=== PATIENT | female | born 1985 | race Caucasian/White ===

== ENCOUNTER 2018-01-03 21:31 | Emergency (ER) | payer BC, SELFPAY ==
[2018-01-03 21:33] VITALS: BP 149/68; PULSE 101; RESP 16; TEMP 37.6; O2SAT 98; BMI 26.6
--- NOTE | 2018-01-03 22:58 | RAD_ITS ---
STUDY: X-RAY CHEST REASON FOR EXAM: Female, 32 years old. C/O CONGSTION,SOB, WHEEZING, FEVER TECHNIQUE: Frontal and lateral views of the chest. COMPARISON: None. FINDINGS: The lungs are clear and expanded. There is no demonstrated pleural abnormality. Normal size heart. Normal mediastinum and rafal. Normal visualized pulmonary arteries. Normal visualized aortic arch and descending thoracic aorta. Normal visualized thoracic spine. Normal visualized ribs, clavicles, and shoulders. There is no demonstrated abnormality of the visualized soft tissue structures of the upper abdomen. RAD/Chest PA and Lateral IMPRESSION: Normal x-ray examination of the chest. Electronically Signed: Eliseo Marti MD at 23:28 EST Tel , Service support ,
--- NOTE | 2018-01-03 23:02 | ED.DCSUM_ITS ---
- ER Visit Summary Date of Service: 01/03/18 Chief Complaint: Cough and intermittent wheezing History of Present Illness: The patient is a 32 F no significant past medical history. For the past 2 months she has had intermittent cough, fever and wheezing. Her one daughter at home was admitted [facility] with pneumonia. It was found out through blood work that the mom the patient had mycoplasma initially was treated with Zithromax and then had a recent course of doxycycline for 10 days. She is said since this whole episode was begun over the last 2 months she has intermittent wheezing and feels like her lungs are tight. She denies any hemoptysis. Currently has a nonproductive cough. Physical Examination: Well-appearing young female. Vital signs are stable afebrile. Pulse ox 90% room air no signs of hypoxia. No distress. HEENT exam unremarkable. Moist mucous members. Neck nontender no lymphadenopathy. Lungs dry cough but no rales, rhonchi or wheezing currently. Auscultation bilaterally. Heart regular rate and rhythm no murmur. Abdomen soft nontender. Extremities moves all 4. Calves nontender no edema. Neurological exam awake alert without focal deficits. Test Results: Chest x-ray shows Emergency Department Course and Treatment: [] Treatment Plan: [] Disposition: Discharge Impression: Viral URI with bronchospasm This note was generated with [employer] dictation software. It may contain incorrect words, spelling, and punctuation that were not noted in review of the chart prior to signing ED Disposition - Plan for ED Patient: Chief Complaint: Cough Referrals: Sin Sanchez DO [Primary Care Provider] -
[2018-01-03] MEDS: Ipratropium/Albuterol Sulfate 3 ML AMPUL.NEB INHALATION (23:12)
[2018-01-03 23:16] VITALS: PULSE 100; RESP 20
--- NOTE | 2018-01-03 23:25 | ED.DEP ---
ED Disposition - Plan for ED Patient: Disposition: Home or Assisted Living Chief Complaint: Cough Instructions: ED Wheezing Prescriptions: Albuterol Sulfate [Proventil Hfa] 6.7 gm IH Q2H PRN PRN #1 [id number] PRN Reason: Wheezing Prednisone [Deltasone] 40 mg PO DAILY 10 Days tab Referrals: Damon Munoz MD [STAFF PHYSICIAN] - 1 Week if not improving Additional Instructions: Prednisone daily for wheezing and lung inflammation. Proventil or albuterol inhaler 2 puffs every 2-4 hours as needed for wheezing or feeling of chest tightness. Call follow-up with primary care physician if not improving.
[2018-01-03 23:43] VITALS: BP 113/72; RESP 93; TEMP -8.8; TEMP 16; O2SAT 97
== END 2018-01-03 23:44 | disposition home or self-care (01) ==
PROVIDERS: Emergency Provider Emergency Medicine; Family Provider Family Medicine; PCP Family Medicine
DX: J06.9 Acute upper respiratory infection, unspecified (principal); J98.01 Acute bronchospasm
CPT/HCPCS: 71046; 94640; 99282

== ENCOUNTER 2020-07-22 22:05 | Emergency (ER) | payer MEDICAID, SELFPAY ==
[2020-07-22 22:05] VITALS: BP 114/84; PULSE 76; RESP 15; TEMP 37; O2SAT 97; BMI 22.7
--- NOTE | 2020-07-22 22:30 | ED.VISSUMM ---
- ER Visit Summary Date of Service: 07/22/20 Chief Complaint: Wound check [] History of Present Illness: The patient is a 34 F [presents to the emergency department with complaint of increased pain in the right foot as well as swelling. Patient states that she had surgery on both feet 8 days ago in [facility] with a Dr. Wise.] Patient states that she was healing well until today when she started having increasing swelling and pain. She denies any fever, chills, or sweats. She had an appointment with the refined syrup operator earlier in the week and everything looked well. Patient denies any new trauma or injury to the foot. Patient has no medical history otherwise. Physical Examination: [HEENT-PERRLA, EOMI. Cranial nerves II through XII grossly intact. TMs clear. Mucous membranes moist. No adenopathy. Cardiovascular-regular rate and rhythm without murmur or ectopy Lungs-clear to auscultation, chest wall stable without crepitus or subcu emphysema Abdomen-normoactive bowel sounds, soft, nontender, no rebound or rigidity, no peritoneal signs. Extremities-intact ?4, normal range of motion, normal pulses. Right foot-patient has small amount of bloody drainage noted from the medial aspect of the MTP joint incision. There is some subtle faint erythema over the MTP joint and medial aspect of the foot. No drainage noted from the other incisions. She is neurovascular intact. She has no pain at the calf. No ropes or cords palpated. Negative Homans sign.] Test Results: [None indicated] Emergency Department Course and Treatment: [I spoke with patient's refined syrup operator who performed the surgery and he recommended an antibiotic and he will see her in the office in 2 days.] Treatment Plan: [Follow-up with refined syrup operator in 2 days. I will start patient on Keflex.] Disposition: [Discharged home in stable condition] Impression: [Postop pain Postop wound infection] This note was generated with [employer] software. It may contain incorrect words, spelling, and punctuation that were not noted in review of the chart prior to signing
--- NOTE | 2020-07-22 22:38 | ED.DEP ---
ED Disposition - Plan for ED Patient: Instructions: ED Wound Check Post Op Pain, ED Wound Check Post Op Bleeding, ED Wound Infection after surgery Prescriptions: Cephalexin [Keflex] 500 mg PO Q6 #40 cap Prescription Printed Additional Instructions: see your surgeon in 2 days
[2020-07-22] MEDS: Cephalexin 250 MG Capsule 500 MG PO (23:01)
== END 2020-07-22 23:09 | disposition home or self-care (01) ==
LOC: ED 22:55
PROVIDERS: Emergency Provider Emergency Medicine
DX: T81.41XA Infection following a procedure, superficial incisional surgical site, initial encounter (principal); G89.18 Other acute postprocedural pain
CPT/HCPCS: 99281; 99283

== ENCOUNTER → 2021-03-15 | Outpatient (CLI) | payer MEDICAID, SELFPAY ==
[2021-03-15 14:17] VITALS: BMI 22.7
[2021-03-20 15:57] LABS: HPV APTIMA, High Risk Positive (Negative)
== END | disposition home or self-care (01) ==
LOC: LABSPEC 16:24
PROVIDERS: Referring Provider Obstetrics & Gynecology; Visit Provider Obstetrics & Gynecology
DX: Z12.4 Encounter for screening for malignant neoplasm of cervix (principal)
CPT/HCPCS: 87624; 88175; G0145

== ENCOUNTER → 2022-06-11 | Outpatient (CLI) | payer MEDICAID, SELFPAY ==
[2022-06-17 21:07] LABS: HPV Genotype 16, Aptima Negative (Negative)
[2022-06-18 13:53] LABS: HPV APTIMA, High Risk Positive (Negative); HPV Genotype 18,45 Aptima Negative (Negative)
== END | disposition home or self-care (01) ==
LOC: LABSPEC 12:12
PROVIDERS: Referring Provider Obstetrics & Gynecology; Visit Provider Obstetrics & Gynecology
DX: Z12.4 Encounter for screening for malignant neoplasm of cervix (principal)
CPT/HCPCS: 87624; 88175; G0145

== ENCOUNTER 2022-11-26 12:44 | Emergency (ER) | payer MEDICAID, SELFPAY ==
[2022-11-26 12:46] VITALS: BP 112/75; PULSE 73; RESP 16; TEMP 36.6; O2SAT 98; BMI 26.8
--- NOTE | 2022-11-26 13:18 | RAD_ITS ---
INDICATION: Radiating low back pain EXAMINATION/TECHNIQUE: X-RAY - XR Spine Lumbar Min 4 Views COMPARISON: None. FINDINGS: VERTEBRAE: Preserved vertebral body height. No fracture. Bilateral pars defect without spondylolisthesis at L5/S1. . Preservation of the normal lumbar lordosis. No significant facet arthropathy. DISCS: Mild disc space narrowing at L4-5 and L5-S1 INCLUDED ABDOMEN: Included bowel gas pattern is non-obstructive. RAD/L/S Spine Min 4 Views IMPRESSION: Mild degenerative changes in the lower lumbar spine with bilateral pars defect without spondylolisthesis at L5/S1. No acute fracture or suspicious osseous lesion Electronically Signed: Bereket Malloy MD at 14:30 EST ,
--- NOTE | 2022-11-26 13:22 | EDS_ITS ---
HPI <MICHAEL Carrillo - Last Filed: 11/26/22 16:10> History of Present Illness Chief Complaint: Abd Pain Narrative Narrative: Patient presents today with lower back pain that radiates into her stomach, upper legs, and groin bilaterally for the past 2 days. She states she has been having chronic mild lower back pain for the past 2 months but attributed it to standing a lot throughout the day. She states she went to the emergency department in [place] yesterday for this issue where they completed blood work and a transvaginal ultrasound and both came back unremarkable. She states she can walk but that it causes her a lot of pain, she has pain with bending her legs, and she has limited range of motion in her back due to the pain. Patient denies injury, hx kidney stones, dysuria, hematuria, urinary frequency, nausea, vomiting, diarrhea, saddle paresthesia, and bowel/bladder incontinence. [facility] <MICHAEL Carrillo - Last Filed: 11/26/22 16:10> [facility] Medical History LGSIL (low grade squamous intraepithelial dysplasia) Home Medications levonorgestrel-ethinyl estradiol 0.1 mg-20 mcg tablet (Aviane) 1 tab PO QDAY #84 tabs 06/11/22 [Rx Last Taken Unknown] hydroxyzine pamoate 25 mg capsule (Vistaril) 25 mg PO BID PRN anxiety #20 caps 10/10/22 [Rx Last Taken Unknown] cyclobenzaprine 10 mg tablet 10 mg PO BID PRN muscle spasm #10 tabs 11/26/22 [Rx Last Taken Unknown] naproxen 500 mg tablet (Naprosyn) 500 mg PO BID PRN pain #20 tabs 11/26/22 [Rx Last Taken Unknown] Allergy/AdvReac Type Severity Reaction Status Date / Time No Known Allergies Allergy Verified 11/26/22 12:45 Surgical History H/O foot surgery H/O: History of tonsillectomy Social History Smoking Status: Never smoker alcohol intake: never substance use type: does not use what type of physical activity do you participate in: yoga and weight training frequency: 1-2 times per week duration: > 90 minutes/day seatbelt use: always do you feel safe at home: Yes additional social history: Single ROS <MICHAEL Carrillo - Last Filed: 11/26/22 16:10> ROS ED Constitutional Constitutional ED: Denies chills, fever(s) or sweats Eyes Eyes: Denies blurry vision, change in vision or diplopia ENT ENT ED: Denies rhinorrhea or sore throat Cardiovascular Cardiovascular: Denies chest pain, palpitations or racing heartbeat Respiratory/Chest Respiratory/Chest: Denies cough, dyspnea or dyspnea on exertion Gastrointestinal Gastrointestinal: Reports abdominal pain; Denies diarrhea, nausea or vomiting Genitourinary Genitourinary ED: Denies dysuria, hematuria or urinary frequency Musculoskeletal Musculoskeletal: Reports back pain; Denies myalgias or neck pain Integumentary Denies abscess, Abrasions or rash Neurologic Neurologic: Denies headache(s), paresthesias or weakness Psychiatric Psychiatric: Denies anxiety, depression or suicidal ideation EXAM <MICHAEL Carrillo - Last Filed: 11/26/22 16:10> Physical Exam Const Vital Signs: 11/26/22 12:46 Temperature 97.8 F Temperature Source Temporal Pulse Rate 73 Respiratory Rate 16 Blood Pressure 112/75 Blood Pressure Mean 87 Pulse Ox 98 Oxygen Delivery Method Room Air Positive well nourished and well developed General Appearance ED: well developed and NAD HEENT Reports moist mucous membranes Negative for trauma Eyes PERRL and EOMs intact bilaterally Neck no lymphadenopathy and supple Chest Wall inspection of chest normal Resp normal respiratory effort and clear to auscultation bilaterally Cardio regular rate, regular rhythm and no murmurs GI non-tender, non-distended and no masses Palpation: soft Back/Spine no CVA tenderness Back/Spine Narrative: Paraspinal muscle tenderness to the lumbar spine. Negative straight leg test bilaterally. Cervical Spine: Negative for cervical spine tenderness Thoracic Spine / Upper Back: Negative for thoracic spinal tenderness Lumbar Spine / Lower Back: Negative for lumbar spinal tenderness Extremity normal to inspection Extremity Narrative: DP and radial pulses 2+ bilaterally. Good capillary refill in all extremities. Sensation intact in all extremities. Neuro oriented x3, CN's II-XII intact bilaterally and no sensory deficits noted Sensorium / Orientation: alert Motor Exam: strength 5/5 throughout Psych mental status grossly normal Skin no rashes or lesions noted, no wounds and skin turgor normal <Juan Stack MD - Last Filed: 11/26/22 16:02> Physical Exam Const Vital Signs: 11/26/22 12:46 Temperature 97.8 F Temperature Source Temporal Pulse Rate 73 Respiratory Rate 16 Blood Pressure 112/75 Blood Pressure Mean 87 Pulse Ox 98 Oxygen Delivery Method Room Air MDM <MICHAEL Carrillo - Last Filed: 11/26/22 16:10> [facility] Narrative Medical decision making narrative: Lumbar spine x-ray shows mild degenerative changes with bilateral parous defect. No acute fracture or suspicious lesion. I am not concerned for cauda equina. I am not concerned for any abdominal process or nephrolithiasis. Urine has been sent for culture. Patient was given pain control and Flexeril here in the ED. She has been given a prescription for naproxen and Flexeril. I am comfortable with patient discharging home in stable condition and following up with her PCP. Patient is comfortable with plan. I have personally performed a face to face assessment of the patient and have reviewed the SAE Note. I performed a substantive portion of the visit including all aspects of the following. My nugent findings include: History is low back pain, rating outward, occasionally down legs. No fever or chills. No loss of bowel or bladder. Seen in [place] ED yesterday. Exam is afebrile. Vital signs noted. Regular rate and rhythm. Lungs clear to auscultation bilaterally. Diffuse lumbar tenderness, no step-off. Neurovascular intact bilateral lower extremities. DTRs equal and symmetric. Medical Decision Making: No red flag signs for cauda equina. Check UA. Check x-rays. X-rays interpreted by myself show no acute fracture, mild degenerative changes. Analgesia. Follow-up primary care. Discharge. Other additions or changes: [None] Lab Data Attestation: I reviewed the patient's lab results. Lab results narrative: Contaminated urine specimen. This has been sent for culture. Labs: Laboratory Results - last 24 hr 11/26/22 13:34 Urine Color Yellow Urine Clarity Sl. Cloudy Urine pH 6.5 Ur Specific [place] 1.015 Urine Protein 15 H Urine Glucose (UA) Normal Urine Ketones 5 H Urine Occult Blood Negative Urine Nitrite Negative Urine Bilirubin Negative Urine Urobilinogen Normal Ur Leukocyte Esterase 500 H Urine RBC 0 SEEN Urine WBC 25-50 SEEN Ur Squamous Epith Cells 5-10 SEEN Urine Bacteria 1+ Urine Mucus 1+ Radiography Diagnostic Testing: Clinical Impression(s) from Imaging Studies Lumbar Spine X-Ray 11/26/22 13:18 IMPRESSION: Mild degenerative changes in the lower lumbar spine with bilateral pars defect without spondylolisthesis at L5/S1. No acute fracture or suspicious osseous lesion Electronically Signed: Bereket Malloy MD at 14:30 EST Reading Location ID and State: [facility] / [place] , Service support , X-ray has been reviewed and interpreted by attending ED physician. <Juan Stack MD - Last Filed: 11/26/22 16:02> [facility] MDM Narrative Medical decision making narrative: I have personally performed a face to face assessment of the patient and have reviewed the SAE Note. I performed a substantive portion of the visit including all aspects of the following. My nugent findings include: History is low back pain, rating outward, occasionally down legs. No fever or chills. No loss of bowel or bladder. Seen in [place] ED yesterday. Exam is afebrile. Vital signs noted. Regular rate and rhythm. Lungs clear to auscultation bilaterally. Diffuse lumbar tenderness, no step-off. Neurovascular intact bilateral lower extremities. DTRs equal and symmetric. Medical Decision Making: No red flag signs for cauda equina. Check UA. Check x-rays. X-rays interpreted by myself show no acute fracture, mild degenerative changes. Analgesia. Follow-up primary care. Discharge. Other additions or changes: [None] Lab Data Labs: Laboratory Results - last 24 hr 11/26/22 13:34 Urine Color Yellow Urine Clarity Sl. Cloudy Urine pH 6.5 Ur Specific [place] 1.015 Urine Protein 15 H Urine Glucose (UA) Normal Urine Ketones 5 H Urine Occult Blood Negative Urine Nitrite Negative Urine Bilirubin Negative Urine Urobilinogen Normal Ur Leukocyte Esterase 500 H Urine RBC 0 SEEN Urine WBC 25-50 SEEN Ur Squamous Epith Cells 5-10 SEEN Urine Bacteria 1+ Urine Mucus 1+ Radiography Diagnostic Testing: Clinical Impression(s) from Imaging Studies Lumbar Spine X-Ray 11/26/22 13:18 IMPRESSION: Mild degenerative changes in the lower lumbar spine with bilateral pars defect without spondylolisthesis at L5/S1. No acute fracture or suspicious osseous lesion Electronically Signed: Bereket Malloy MD at 14:30 EST , Discharge Plan Triage Chief Complaint: Abd Pain ED Midlevel Provider: Chinyere Loving ED Provider: Juan Stack Dx/Rx/DC Orders Clinical Impression: Low back pain Instructions: ED Back Pain (Acute or Chronic) Prescriptions: New cyclobenzaprine 10 mg tablet 10 mg PO BID PRN (Reason: muscle spasm) Qty: 10 0RF naproxen [Naprosyn] 500 mg tablet 500 mg PO BID PRN (Reason: pain) Qty: 20 0RF No Action levonorgestrel-ethinyl estrad [Aviane] 0.1-20 mg-mcg tablet 1 tab PO QDAY Qty: 84 3RF hydroxyzine pamoate [Vistaril] 25 mg capsule 25 mg PO BID PRN (Reason: anxiety) Qty: 20 0RF Primary Care Provider: Care Physician,No Primary Referrals: Care Physician,No Primary [Primary Care Provider] - Activity Restrictions/Additional Instructions: Please follow-up with PCP. Return if symptoms worsen. Disposition Disposition: Home, Self Care Discharge Date/Time: 11/26/22 15:10
[2022-11-26 13:39] LABS: Red Blood Cells-Urine 0 SEEN /hpf (0-5)
[2022-11-26 13:51] LABS: Color, Urine Yellow (Yellow); Glucose, Dipstick Normal (Normal); Ketone-Dipstick 5 mg/dl (Negative); Leukocyte Esterase-Dipstick 500 /ul (Negative); Nitrite-Dipstick Negative (Negative); Occult Blood-Urine Negative /ul (Negative); Protein-Dipstick 15 mg/dl (Negative); Specific Gravity, Urine 1.015 (1.002-1.030); Urine Bilirubin Dipstick Negative (Negative); Urine Clarity Sl. Cloudy (Clear); Urine Urobilinogen Normal (Normal); Urine pH 6.5 (5.0 - 8.0)
[2022-11-26 13:57] LABS: Bacteria 1+ /hpf (None Seen); Mucous, Urine 1+ /hpf (<or=2+); Squamous Epithelial Cells - UA 5-10 SEEN /hpf (5-10)
[2022-11-26 13:58] LABS: White Blood Cells 25-50 SEEN /hpf (0-5)
[2022-11-26] MEDS: cycloBENZAPRine HCl 10 MG Tablet PO (15:07)
[2022-11-26] MEDS: HYDROcodone Bitartrate/Apap 5/325 Tablet PO (15:07)
== END 2022-11-26 15:10 | disposition home or self-care (01) ==
PROVIDERS: Physician Assistant; Emergency Provider Emergency Medicine; Visit Provider Emergency Medicine
DX: M54.50 Low back pain, unspecified (principal)
CPT/HCPCS: 72110; 81001; 87086; 87088; 99283

== ENCOUNTER 2023-03-04 09:05 | Emergency (ER) | payer MEDICAID, SELFPAY ==
[2023-03-04 09:05] VITALS: BP 118/81; PULSE 70; RESP 18; TEMP 36.6; O2SAT 98; BMI 23.5
--- NOTE | 2023-03-04 09:18 | EDS_ITS ---
HPI History of Present Illness Chief Complaint: Cough Detail of Chief Complaint: Patient presents with cough x5 weeks Informant: patient Narrative Narrative: Patient presents to the emergency department complaint of not feeling well for about 5 weeks. States she started with a cough. Patient couple weeks ago was seen in urgent care and was started on Z-Musa but that did not seem to help with her symptoms. She tells me that she had surgery on her left foot 4 weeks ago. She then developed some discomfort in the center of her chest that she felt was related to her trachea and being intubated but that is now resolved for about a week. She denies chest pain. She denies hemoptysis. She denies fever. No history of PE or DVT. Patient is on oral contraceptive. PFSH PFS Medical History LGSIL (low grade squamous intraepithelial dysplasia) Home Medications prednisone 20 mg tablet 20 mg PO BID #10 tabs 03/04/23 [Rx Last Taken Unknown] Allergy/AdvReac Type Severity Reaction Status Date / Time No Known Allergies Allergy Verified 03/04/23 09:05 Surgical History H/O foot surgery H/O: History of tonsillectomy Social History Smoking Status: Never smoker alcohol intake: never substance use type: does not use what type of physical activity do you participate in: yoga and weight training frequency: 1-2 times per week duration: > 90 minutes/day seatbelt use: always do you feel safe at home: Yes additional social history: Single ROS ROS ED Review of Systems ROS Unobtainable: other Constitutional Constitutional ED: Reports lethargy; Denies chills, fever(s), sweats or weight loss Eyes Eyes: Denies blurry vision, change in vision or diplopia ENT ENT ED: Denies rhinorrhea or sore throat Cardiovascular Cardiovascular: Denies chest pain, orthopnea or racing heartbeat Respiratory/Chest Respiratory/Chest: Reports cough, dyspnea and dyspnea on exertion; Denies orthopnea or sputum Gastrointestinal Gastrointestinal: Denies abdominal pain, diarrhea, nausea or vomiting Genitourinary Genitourinary ED: Denies dysuria, hematuria or urinary frequency Musculoskeletal Musculoskeletal: Denies arthralgias, back pain, myalgias or neck pain Integumentary Denies abscess, Abrasions or rash Neurologic Neurologic: Denies headache(s) or weakness Psychiatric Psychiatric: Denies anxiety, depression or suicidal thoughts Endocrine Endocrinology: Denies polydipsia, polyphagia or polyuria Hematologic/Lymphatic Hematologic/Lymphatic: Denies easy bleeding, easy bruising or lymphadenopathy Allergic/Immunologic Allergic/Immunologic ED: Denies mouth swelling, tongue swelling or urticaria EXAM Physical Exam Const Vital Signs: 03/04/23 09:05 Temperature 97.8 F Temperature Source Temporal Pulse Rate 70 Respiratory Rate 18 Blood Pressure 118/81 H Blood Pressure Mean 93 Pulse Ox 98 Oxygen Delivery Method Room Air Positive well nourished and well developed General Appearance ED: well developed and NAD HEENT Reports TM's clear and moist mucous membranes normocephalic and atraumatic; Negative for trauma or tenderness Tympanic Membrane ED: Yes TM's clear Eyes PERRL and EOMs intact bilaterally General Eye ED: Negative for pale conjunctiva or scleral icterus Neck no lymphadenopathy, supple and no JVD General: Negative for tenderness Chest Wall inspection of chest normal and palpation of chest normal Chest: Negative for tenderness Resp normal respiratory effort and clear to auscultation bilaterally Effort and Inspection: Negative for respiratory distress or pain with movement Auscultation: Negative for rhonchi, wheezes or diminished lung sounds Cardio regular rate, regular rhythm, S1 normal heart sound, S2 normal heart sound and no murmurs Peripheral Pulses: pulses 2+ throughout GI normal to inspection, nondistended, normoactive bowel sounds, soft to palpation, non-tender, non-distended and no masses Back/Spine no CVA tenderness and no thoracic nor lumbar tenderness Extremity Extremity Narrative: Left foot has a walking boot on it. No significant edema of the extremity noted. No ropes or cords palpated. General Extremety ED: Negative for edema General Extremity: Negative for edema Neuro oriented x3, CN's II-XII intact bilaterally, no sensory deficits noted and gait normal Sensorium / Orientation: awake, alert, oriented to person, oriented to place and oriented to time Motor Exam: strength 5/5 throughout and strength abnormal Psych mental status grossly normal Skin no rashes or lesions noted and no wounds MDM MDM MDM Narrative Medical decision making narrative: Patient with 5-week weeks of cough and dyspnea. Patient had basic labs obtained that showed a normal white count and normal H&H. Chemistries were normal. I did do a D-dimer and it was normal 1.36. Chest x-ray obtained showed no evidence of infiltrate or pneumothorax or pulmonary congestion. At this point etiology of her symptoms unclear. I do not feel she needs antibiotics as she is not febrile and there is no evidence of infiltrate on chest x-ray. She is got a normal white count. Patient will be started on an albuterol inhaler as well as prednisone. I will refer to pulmonology for follow-up. Patient clinically looks well. Lab Data Attestation: I reviewed the patient's lab results. Labs: Laboratory Results - last 24 hr 03/04/23 03/04/23 03/04/23 09:30 09:30 09:30 WBC 7.9 RBC 4.38 Hgb 13.5 Hct 39.0 MCV 89.0 MCH 30.8 MCHC 34.6 RDW Std Deviation 40.7 RDW Coeff of Zachariah 12.4 Plt Count 303 MPV 10.3 Immature Gran % (Auto) 0.300 Neut % (Auto) 52.0 Lymph % (Auto) 27.0 [place] % (Auto) 8.1 Eos % (Auto) 11.5 H Baso % (Auto) 1.1 H Absolute Neuts (auto) 4.1 Absolute Lymphs (auto) 2.13 Nucleated RBC % 0 D-Dimer Quant (PE/DVT) 0.36 Sodium 140 Potassium 3.7 Chloride 111 H Carbon Dioxide 26.0 Anion Gap 3 L BUN 11 Creatinine 0.82 Estim Creat Clear Calc 93.12 Est GFR (MDRD) Af Amer 101 Est GFR (MDRD) Non-Af 84 BUN/Creatinine Ratio 13.3 Glucose 96 Calcium 8.8 Radiography Chest X-Ray - ED: 1 View Diagnostic Testing: Clinical Impression(s) from Imaging Studies Chest X-Ray 03/04/23 09:50 IMPRESSION: Hyperinflation. The lungs are clear. Electronically Signed: Delroy Rodgers MD at 10:07 EDT , 1 view chest x-ray obtained interpreted by myself as no evidence of infiltrate or pneumothorax or acute disease process. Radiology felt there was hyperinflation otherwise nothing acute. Discharge Plan Triage Chief Complaint: Cough ED Provider: Herson Luis Dx/Rx/DC Orders Clinical Impression: Dyspnea, Cough Instructions: ED Dyspnea Prescriptions: New prednisone 20 mg tablet 20 mg PO BID Qty: 10 0RF Primary Care Provider: Care Physician,No Primary Referrals: Care Physician,No Primary [Primary Care Provider] - Disposition Disposition: Home, Self Care
[2023-03-04 09:38] LABS: Absolute Lymphocyte Count 2.13 X10^3/uL (0.83-4.51); Absolute Neutrophil Count 4.1 X10^3/uL (2.0-7.7); Basophil# 0.09 X10^3/uL; Basophil% 1.1 % (0-1); Eosinophil# 0.91 X10^3/uL; Eosinophils% 11.5 % (0-5); Hemoglobin 13.5 g/dL (12.0-15.0); Lymphocyte # 2.13 X10^3/ul (0.83-4.51); Mean Corp Hgb Conc 34.6 g/dL (32-36); Mean Corpuscular Hgb 30.8 pg (27.0-32.0); Mean Platelet Vol. 10.3 fl (6.2-12.0); Monocyte# 0.64 X10^3/uL; Monocyte% 8.1 % (0-10); NRBC Flagged by Analyzer 0 % (0-5); Platelet Count 303 K/mm3 (150-450); RBC Distribution Width CV 12.4 % (11.6-14.6); RBC Distribution Width SD 40.7 fl (35.1-43.9); Red Blood Count 4.38 M/mm3 (4.2-5.4); White Blood Count 7.9 K/mm3 (4.4-11.0)
--- NOTE | 2023-03-04 09:50 | RAD_ITS ---
STUDY: X-RAY CHEST REASON FOR EXAM: Female, 37 years old. Dyspnea, cough TECHNIQUE: Single AP portable view of the chest. COMPARISON: Comparison is made with prior study dated January 03, 2015. FINDINGS: Hyperinflation. The lungs are clear. There is no demonstrated pleural abnormality. Normal size heart. Normal mediastinum and rafal. Normal visualized pulmonary arteries. Normal visualized aortic arch and descending thoracic aorta. Normal visualized thoracic spine. Normal visualized ribs, clavicles, and shoulders. There is no demonstrated abnormality of the visualized soft tissue structures of the upper abdomen. RAD/Chest 1 View (Portable) IMPRESSION: Hyperinflation. The lungs are clear. Electronically Signed: Delroy Rodgers MD at 10:07 EDT ,
[2023-03-04 09:52] LABS: Anion Gap 3 (5-15); BUN 11 mg/dL (7-18); BUN/Creat Ratio 13.3 RATIO (10-20); Calcium,Total 8.8 mg/dL (8.5-10.1); Chloride 111 mmol/L (98-107); Creatinine, Serum 0.82 mg/dL (0.55-1.02); EST Glomerular Filtration Rate 84 mL/min (>60); Est Glom Filt Rate - Afr Amer 101 mL/min (>60); Estimated Creatinine Clearance 93.12 ml/min; Glucose 96 mg/dL (74-106); Potassium 3.7 mmol/L (3.5-5.1); Sodium Level 140 mmol/L (136-145)
[2023-03-04 09:54] LABS: D-Dimer Quantitative (DVT/PE) 0.36 FEU/ug/m (0.27-0.49)
[2023-03-04 10:35] VITALS: BP 128/93; PULSE 71; RESP 16; TEMP 36.8; O2SAT 100
[2023-03-04 10:37] VITALS: O2SAT 100
[2023-03-04] MEDS: Albuterol Sulfate 8 gm Inhaler (60 puffs) 2 PUFF INHALATION (11:01)
== END 2023-03-04 11:08 | disposition home or self-care (01) ==
PROVIDERS: Emergency Provider Emergency Medicine; Visit Provider Emergency Medicine
DX: R05.9 Cough, unspecified (principal); R06.00 Dyspnea, unspecified
CPT/HCPCS: 71045; 80048; 85025; 85379; 94640; 99283

== ENCOUNTER → 2023-07-28 | Outpatient (CLI) | payer MEDICAID, SELFPAY ==
[2023-08-01 14:09] LABS: HPV APTIMA, High Risk Negative (Negative)
== END | disposition home or self-care (01) ==
LOC: LABSPEC 16:01
PROVIDERS: Referring Provider Obstetrics & Gynecology; Visit Provider Obstetrics & Gynecology
DX: Z12.4 Encounter for screening for malignant neoplasm of cervix (principal)
CPT/HCPCS: 87624; 88175; G0145

== ENCOUNTER → 2024-05-24 | Outpatient (CLI) | payer MEDICAID, SELFPAY ==
[2024-05-26 21:07] LABS: Chlamydia By Nucleic Acid AMP Negative (Negative); Gonococcus By Nucleic Acid AMP Negative (Negative)
== END | disposition home or self-care (01) ==
PROVIDERS: Referring Provider Obstetrics & Gynecology; Visit Provider Obstetrics & Gynecology
DX: O09.90 Supervision of high risk pregnancy, unspecified, unspecified trimester (principal); Z3A.00 Weeks of gestation of pregnancy not specified
CPT/HCPCS: 87086; 87491; 87591

== ENCOUNTER → 2024-06-04 | Outpatient (CLI) | payer MEDICAID, SELFPAY ==
[2024-06-04 11:25] LABS: Absolute Lymphocyte Count 1.87 X10^3/uL (0.83-4.51); Absolute Neutrophil Count 10.2 X10^3/uL (2.0-7.7); Basophil# 0.06 X10^3/uL; Basophil% 0.4 % (0-1); Eosinophil# 0.22 X10^3/uL; Eosinophils% 1.6 % (0-5); Hematocrit 39.2 % (37-47); Hemoglobin 13.2 g/dL (12.0-15.0); Lymphocyte # 1.87 X10^3/ul (0.83-4.51); Lymphocyte % 13.9 % (19-41); Mean Corp Hgb Conc 33.7 g/dL (32-36); Mean Corpuscular Hgb 30.6 pg (27.0-32.0); Mean Corpuscular Volume 90.7 fL (81-99); Mean Platelet Vol. 10.1 fl (6.2-12.0); Monocyte# 1.04 X10^3/uL; Monocyte% 7.7 % (0-10); NRBC Flagged by Analyzer 0 % (0-5); Neutrophil # 10.15 X10^3/uL (2.7-7.7); Neutrophil % 75.8 % (47-70); Platelet Count 265 K/mm3 (150-450); RBC Distribution Width CV 12.5 % (11.6-14.6); RBC Distribution Width SD 41.1 fl (35.1-43.9); Red Blood Count 4.32 M/mm3 (4.2-5.4); White Blood Count 13.4 K/mm3 (4.4-11.0)
[2024-06-04 12:39] LABS: HIV - WCH Non-Reactive (Nonreactive); Hepatitis B Surface Antigen Non-Reactive (Nonreactive); Hepatitis C Antibody Non-Reactive (Nonreactive); Rubella IgG Reactive (Nonreactive); Syphilis Antibodies Non-reactive
== END | disposition home or self-care (01) ==
LOC: PAVLAB 10:46
PROVIDERS: Referring Provider Obstetrics & Gynecology; Visit Provider Obstetrics & Gynecology
DX: O09.521 Supervision of elderly multigravida, first trimester (principal)
CPT/HCPCS: 36415; 85025; 86703; 86762; 86780; 86803; 86850; 86900; 86901; 87340

== ENCOUNTER → 2024-10-12 | Outpatient (CLI) | payer OTHER, SELFPAY ==
[2024-10-12 12:08] LABS: Basophil# 0.05 X10^3/uL; Basophil% 0.3 % (0-1); Eosinophil# 0.29 X10^3/uL; Hematocrit 36.7 % (37-47); Hemoglobin 12.7 g/dL (12.0-15.0); Mean Corp Hgb Conc 34.6 g/dL (32-36); Mean Corpuscular Hgb 32.1 pg (27.0-32.0); Mean Corpuscular Volume 92.7 fL (81-99); Mean Platelet Vol. 9.9 fl (6.2-12.0); Monocyte# 1.16 X10^3/uL; NRBC Flagged by Analyzer 0 % (0-5); Neutrophil # 11.01 X10^3/uL (2.7-7.7); Neutrophil % 76.1 % (47-70); Platelet Count 195 K/mm3 (150-450); RBC Distribution Width CV 12.8 % (11.6-14.6); RBC Distribution Width SD 43.7 fl (35.1-43.9); Red Blood Count 3.96 M/mm3 (4.2-5.4); White Blood Count 14.5 K/mm3 (4.4-11.0)
[2024-10-12 12:15] LABS: Glucose Challenge Gest 1H 50g 134 mg/dL (70-140)
[2024-10-12 12:48] LABS: HIV - WCH Non-Reactive (Nonreactive); Syphilis Antibodies Non-reactive
== END | disposition home or self-care (01) ==
LOC: BWCLAB 10:58
PROVIDERS: Referring Provider Obstetrics & Gynecology; Visit Provider Obstetrics & Gynecology
DX: O09.90 Supervision of high risk pregnancy, unspecified, unspecified trimester (principal); Z13.1 Encounter for screening for diabetes mellitus; Z3A.00 Weeks of gestation of pregnancy not specified
CPT/HCPCS: 36415; 82950; 85025; 86703; 86780

== ENCOUNTER → 2024-10-26 | Outpatient (CLI) | payer OTHER, SELFPAY ==
[2024-10-26 11:52] LABS: Absolute Neutrophil Count 14.4 X10^3/uL (2.0-7.7); Basophil# 0.08 X10^3/uL; Basophil% 0.4 % (0-1); Eosinophil# 0.36 X10^3/uL; Eosinophils% 1.9 % (0-5); Hematocrit 38.5 % (37-47); Hemoglobin 12.9 g/dL (12.0-15.0); Lymphocyte % 10.5 % (19-41); Mean Corp Hgb Conc 33.5 g/dL (32-36); Mean Corpuscular Hgb 31.2 pg (27.0-32.0); Mean Platelet Vol. 9.8 fl (6.2-12.0); Monocyte# 1.44 X10^3/uL; Monocyte% 7.6 % (0-10); NRBC Flagged by Analyzer 0 % (0-5); Neutrophil # 14.36 X10^3/uL (2.7-7.7); Neutrophil % 75.6 % (47-70); Platelet Count 220 K/mm3 (150-450); RBC Distribution Width CV 12.5 % (11.6-14.6); RBC Distribution Width SD 42.8 fl (35.1-43.9); Red Blood Count 4.14 M/mm3 (4.2-5.4)
== END | disposition home or self-care (01) ==
LOC: BWCLAB 11:29
PROVIDERS: Referring Provider Nurse Practitioner Family; Visit Provider Nurse Practitioner Family
DX: Z34.92 Encounter for supervision of normal pregnancy, unspecified, second trimester (principal); Z3A.28 28 weeks gestation of pregnancy
CPT/HCPCS: 36415; 85025

== ENCOUNTER 2024-10-28 22:40 | Outpatient (CLI) | payer OTHER, SELFPAY ==
[2024-10-28 23:09] VITALS: PULSE 92; O2SAT 97
[2024-10-28 23:10] VITALS: BP 123/72; PULSE 91
[2024-10-28 23:11] VITALS: PULSE 97; RESP 18; TEMP 36.5
[2024-10-28 23:21] VITALS: BMI 34.4
[2024-10-28 23:34] LABS: Color, Urine Yellow (Yellow); Glucose, Dipstick 50 mg/dl (Normal); Ketone-Dipstick Negative (Negative); Leukocyte Esterase-Dipstick Negative /ul (Negative); Nitrite-Dipstick Negative (Negative); Occult Blood-Urine Negative /ul (Negative); Protein-Dipstick 15 mg/dl (Negative); Specific Gravity, Urine 1.025 (1.002-1.030); Urine Bilirubin Dipstick Negative (Negative); Urine Clarity Sl. Cloudy (Clear); Urine Urobilinogen Normal (Normal)
[2024-10-28 23:54] LABS: ROM Internal Control Test YES-OK TO RESULT pt. (Internal QC); ROM Patient Test Negative (Negative); Record Kit Lot#, ROM+ K1972
--- NOTE | 2024-10-29 00:10 | OB.TRI.PN ---
Progress Notes Date of Service: 10/29/24 Progress Note: Patient presents for triage evaluation secondary to low abdominal cramping at 30.6 weeks FHT: A 135 B 135 both with Moderate variability reactive no decelerations category I tracing Paguate: rare Contractions Assessment and plan: Urine negative for UTI, ROm neg, Speculum exam shows cervix is closed. Reactive NST, reassuring maternal and status patient discharged to home to follow-up in office. See problem list details for additional plan information. Laboratory Studies: Laboratory Tests 10/28/24 Range/Units 23:20 Urine Color Yellow (Yellow) Urine Clarity Sl. Cloudy (Clear) Urine pH 6.0 (5.0 - 8.0) Ur Specific [place] 1.025 (1.002-1.030) Urine Protein 15 H (Negative) mg/dl Urine Glucose (UA) 50 H (Normal) mg/dl Urine Ketones Negative (Negative) mg/dl Urine Occult Blood Negative (Negative) /ul Urine Nitrite Negative (Negative) Urine Bilirubin Negative (Negative) mg/dL Urine Urobilinogen Normal (Normal) mg/dl Ur Leukocyte Esterase Negative (Negative) /ul Vag Amniotic Fld Detect Negative (Negative) Charges/Coding Multi Select Codes Visit Charges Office Visit/Consults: 43773 OV L3 Est 20min Urinary/Genital Urinary/Genital CPT Codes: 67421-67 non-stress test Interp Assessment & Plan (1) Uterine cramping: (2) Sterilization: COMMENT: plan BS at [facility] [place], 09/24/24 pt has now does not want to have BS (3) Thrombosed external hemorrhoid: COMMENT: s/p draining of hemorrhoid in GS. pt to follow up post for more surgery. (4) Single umbilical artery: COMMENT: twin A (5) Hemorrhoids during : QUALIFIERS: Trimester: second trimester Qualified Code(s): O22.42 - Hemorrhoids in , second trimester (6) Monochorionic diamniotic twin gestation: COMMENT: echo nl, growth q 4 weeks, weekly bpp at 32, deliver 37 (7) AMA (advanced maternal age) multigravida 35+: (8) History of 2 sections: COMMENT: RLTCS with SM 12/10 @ 7:15 (9) Hx of maternal blood transfusion, currently : COMMENT: after (10) Supervision of high-risk : COMMENT: , POORNIMA 12/31/24, boys PC Rip Cavazos Rensselear Wero (11) : QUALIFIERS: Weeks of gestation: 30 weeks Qualified Code(s): Z3A.30 - 30 weeks gestation of COMMENT: low risk NIPT, declines carrier testing. anatomy reveiwed (12) Low grade squamous intraepithelial lesion (LGSIL): COMMENT: colposcopy 05/2021:neg. 05/2022:neg pap with positive HPV; rpt pap 2022 negative
== END 2024-10-29 00:20 | disposition home or self-care (01) ==
LOC: WPOUT 22:46 → WP 23:18
PROVIDERS: Referring Provider Advanced Practice Midwife; Visit Provider Advanced Practice Midwife
DX: O99.891 Other specified diseases and conditions complicating pregnancy (principal); R10.2 Pelvic and perineal pain; O30.033 Twin pregnancy, monochorionic/diamniotic, third trimester; O09.523 Supervision of elderly multigravida, third trimester; Z3A.30 30 weeks gestation of pregnancy
CPT/HCPCS: 59025; 59050; 81002; 84112; 99221; G0378

== ENCOUNTER → 2024-11-09 | Outpatient (CLI) | payer OTHER, SELFPAY ==
[2024-11-09 11:13] LABS: Absolute Lymphocyte Count 2.02 X10^3/uL (0.83-4.51); Absolute Neutrophil Count 11.3 X10^3/uL (2.0-7.7); Basophil# 0.08 X10^3/uL; Basophil% 0.5 % (0-1); Differential Indicated SCAN CRITERIA MET; Eosinophil# 0.29 X10^3/uL; Eosinophils% 1.8 % (0-5); Hematocrit 36.3 % (37-47); Hemoglobin 12.6 g/dL (12.0-15.0); Lymphocyte # 2.02 X10^3/ul (0.83-4.51); Lymphocyte % 12.5 % (19-41); Mean Corp Hgb Conc 34.7 g/dL (32-36); Mean Corpuscular Hgb 31.4 pg (27.0-32.0); Mean Corpuscular Volume 90.5 fL (81-99); Mean Platelet Vol. 9.8 fl (6.2-12.0); Monocyte# 1.84 X10^3/uL; Monocyte% 11.4 % (0-10); NRBC Flagged by Analyzer 0 % (0-5); Neutrophil # 11.29 X10^3/uL (2.7-7.7); Neutrophil % 69.7 % (47-70); POSITIVE DIFFERENTIAL YES; Platelet Count 249 K/mm3 (150-450); RBC Distribution Width CV 12.1 % (11.6-14.6); RBC Distribution Width SD 39.8 fl (35.1-43.9); Red Blood Count 4.01 M/mm3 (4.2-5.4); White Blood Count 16.2 K/mm3 (4.4-11.0)
[2024-11-10 13:57] LABS: Pathologist Review Reviewed
== END | disposition home or self-care (01) ==
LOC: BWCLAB 10:54
PROVIDERS: Referring Provider Obstetrics & Gynecology; Visit Provider Obstetrics & Gynecology
DX: O99.119 Other diseases of the blood and blood-forming organs and certain disorders involving the immune mechanism complicating pregnancy, unspecified trimester (principal); D72.829 Elevated white blood cell count, unspecified; Z3A.00 Weeks of gestation of pregnancy not specified
CPT/HCPCS: 36415; 85025

== ENCOUNTER → 2024-11-29 | Outpatient (CLI) | payer OTHER, SELFPAY | END | disposition home or self-care (01) | LOC: LABSPEC 14:56 | PROVIDERS: Referring Provider Obstetrics & Gynecology; Visit Provider Obstetrics & Gynecology | DX: O09.90 Supervision of high risk pregnancy, unspecified, unspecified trimester (principal); Z3A.00 Weeks of gestation of pregnancy not specified | CPT/HCPCS: 87077; 87081; 87186 ==

== ENCOUNTER 2024-12-01 19:25 | Inpatient (IN) | payer OTHER, MEDICAID, SELFPAY ==
[2024-12-01] VITALS (21 sets, daily range): BP systolic 115–154; BP diastolic 63–93; PULSE 68–106; RESP 14–20; TEMP 36.4–37.2; O2SAT 98–100; BMI 36.6
[2024-12-01 18:40] LABS: Hematocrit 35.5 % (37-47); Hemoglobin 12.2 g/dL (12.0-15.0); Mean Corp Hgb Conc 34.4 g/dL (32-36); Mean Corpuscular Hgb 29.5 pg (27.0-32.0); Mean Corpuscular Volume 85.7 fL (81-99); Mean Platelet Vol. 10.6 fl (6.2-12.0); Platelet Count 223 K/mm3 (150-450); RBC Distribution Width CV 12.3 % (11.6-14.6); RBC Distribution Width SD 38.4 fl (35.1-43.9); Red Blood Count 4.14 M/mm3 (4.2-5.4); White Blood Count 15.5 K/mm3 (4.4-11.0)
[2024-12-01] MEDS: Lactated Ringers 500 ML 999 ML IV (18:40)
[2024-12-01 18:56] LABS: AST(SGOT) 27 U/L (15-37); Alanine Aminotransfer ALT/SGPT 17 U/L (13-56); Creatinine, Serum 0.75 mg/dL (0.55-1.02); EST Glomerular Filtration Rate 93 mL/min (>60); Est Glom Filt Rate - Afr Amer 112 mL/min (>60); Estimated Creatinine Clearance 128.67 ml/min; LDH 171 U/L (84-246); Uric Acid 4.7 mg/dL (2.6-6.0)
[2024-12-01] MEDS: Acetaminophen 500 MG Tablet 1000 MG PO (18:56)
[2024-12-01 19:13] LABS: Mucous, Urine 0 SEEN /hpf (<or=2+); Red Blood Cells-Urine 0 SEEN /hpf (0-5); White Blood Cells 0 SEEN /hpf (0-5)
[2024-12-01 19:16] LABS: Color, Urine Yellow (Yellow); Glucose, Dipstick Normal (Normal); Ketone-Dipstick Negative (Negative); Leukocyte Esterase-Dipstick Negative /ul (Negative); Nitrite-Dipstick Negative (Negative); Occult Blood-Urine Negative /ul (Negative); Protein-Dipstick Negative (Negative); Specific Gravity, Urine 1.015 (1.002-1.030); Urine Bilirubin Dipstick Negative (Negative); Urine Clarity Clear (Clear); Urine Urobilinogen Normal (Normal)
[2024-12-01 19:22] LABS: Amorphous Sediment 1+; Bacteria 1+ /hpf (None Seen); Squamous Epithelial Cells - UA 0-5 SEEN /hpf (5-10)
[2024-12-01 19:28] LABS: Protein, Urine (Random) < 6.0 mg/dL (<11.9)
[2024-12-01] MEDS: Lactated Ringers 1,000 ML 999 ML IV (19:30)
[2024-12-01] MEDS: Sodium Citrate/Citric Acid 30 ML UDC PO (19:38)
--- NOTE | 2024-12-01 20:01 | HP.PCM.OB_ITS ---
HPI - General General Date of Admission: 12/01/24 HPI Narrative ALLEN MORROW, is a 39 y/o @ 35 weeks 5 days mono di twins who presents to L&D in active labor. She changed her cervix from 1 cm to 3 cm in 1 hour and is in 6/10 pain. The decision is made to proceed with a repeat section ayo. Maternal Data Information POORNIMA Calculator Estimated Delivery Date Method Current WG Current Estimate 12/31/24 LMP (Certain) 35w 5d Other Estimates 12/28/24 Ultrasound #1 36w 1d # 2 PFSH PFSH Medical History (Updated 12/01/24 @ 19:45 by Sobeida Hayes) History of blood transfusion hemorrhage Hemorrhoids during History of Amenorrhea Psychosomatic pain Pelvic pain Anxiety LGSIL (low grade squamous intraepithelial dysplasia) Home Medications ?Medication ?Instructions ?Recorded ?Last Taken ?Type PNV 153-FA 400 mcg-om3 35 mg-dha 1 tab PO 05/18/24 Unknown History 25 mg-epa 5 mg-fish oil chew tablet hydroxyzine pamoate 50 mg capsule 50 mg PO QHS #30 caps 11/16/24 Unknown Rx Allergy/AdvReac Type Severity Reaction Status Date / Time No Known Allergies Allergy Verified 12/01/24 18:51 Surgical History H/O breast augmentation H/O foot surgery History of tonsillectomy H/O: Social History adopted: No household members: spouse and children number of children: 3 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 status: employed 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 exposures/hazards: No pets and animals: Yes pets and animals: dog(s) history of recent travel: No sexually active: Yes Smoking Status: Never smoker alcohol intake: never substance use type: does not use well-balanced diet: daily or most days caffeine: No eating out: rarely or never during the past year weight has: remained stable what type of physical activity do you participate in: walking and other details: volley ball frequency: 1-2 times per week duration: > 90 minutes/day velia/mu-ism: Anabaptist seatbelt use: always do you feel safe at home: Yes additional social history: Wero- [employer] History 6 Elective abortions Hx Para 3 Spontaneous abortions 2 Hx # Term Pregnancies Ectopic pregnancies Hx # Pregnancies Multiple births # of living children 3 Past Pregnancies Del. Date Name GA/Weeks Outcome Route Bth Weight Infant Gen Labor Lgth Anesthesia Del Locatn Provider FOB Unknown 2011 Macy 7 lbs 13 oz Female [facility] Unknown 2014 Rip 9 lbs 1 oz Male Geri Hudson A 10/13/18 Nicole 39 live - full term 7#13oz Female [facility],[place] Delivery Date: 10/13/18 Last Updated by: Bridget Glez rpt cs prior didn't go well Visit Details Expected Delivery Route/Plan RLTCS with SM Labor Preferences- CB/BF classes: [] labor support person: [] labor intervention preferences: [] pain management options preferred: [] cut cord/dad catch: [] : [] PP control planned: [] discussed possible routes of delivery and associated risks: [] special requests: [] Plans Covid status: [] Flu vaccine: [] Tdap vaccine: Rhogam: [] LARC form signed: [] Problem list reviewed and updated with the most current plan of care details and appropriate orders placed. Relevant counseling for the gestational age provided. Continue routine care and follow up unless otherwise noted in visit notes/problem list details OB Flowsheet Initial Weight: Not Recorded Date -?-?-?-?-?-?-?-?-?-?-?-?- EGA Weight BP Urine Prot -?-?-?-?-?-?-?-?-?-?-?-?- Glucose FHR FuHt Pres Dilation -?-?-?-?-?-?-?-?-?-?-?-?- Effaced St Visit Note 05/24/24 -?-?-?-?-?-?-?-?-?-?-?-?- 8w 3d 169 lb 8 oz 117/77 -?-?-?-?-?-?-?-?-?-?-?-?- A 139 -?-?-?-?-?-?-?-?-?-?-?-?- B 186 A -?-?-?-?-?-?-?-?-?-?-?-?- B -?-?-?-?-?-?-?-?-?-?-?-?- A -?-?-?-?-?-?-?-?-?-?-?-?- B A JV- twin gestati on present. suspect mono/di but we discussed genetic test and MFM will tell best. RTO in 2-3 weeks for heart tones. -?-?-?-?-?-?-?-?-?-?-?-?- B 06/09/24 -?-?-?-?-?-?-?-?-?-?-?-?- 10w 5d 170 lb 116/78 -?-?-?-?-?-?-?-?-?-?-?-?- A 168 -?-?-?-?-?-?-?-?-?-?-?-?- B 168 A -?-?-?-?-?-?-?-?-?-?-?-?- B -?-?-?-?-?-?-?-?-?-?-?-?- A -?-?-?-?-?-?-?-?-?-?-?-?- B A SM- no vb crampi ng mono di twins seen -?-?-?-?-?-?-?-?-?-?-?-?- B 07/19/24 -?-?-?-?-?-?-?-?-?-?-?-?- 16w 3d 182 lb 8 oz 112/75 Nega tive -?-?-?-?-?-?-?-?-?-?-?-?- Negative A 143 -?-?-?-?-?-?-?-?-?-?-?-?- B 155 A -?-?-?-?-?-?-?-?-?-?-?-?- B -?-?-?-?-?-?-?-?-?-?-?-?- A -?-?-?-?-?-?-?-?-?-?-?-?- B A JV- pt complains of hemorrhoid pain. shows me a picture today of the very engorged hemorrhoids. we discussed referral to GI, surgery, or vascuar. proctofoam ordered. pt knows to call mfm to set up weekly bpps after 28 weeks. -?-?-?-?-?-?-?-?-?-?-?-?- B 08/17/24 -?-?-?-?-?-?-?-?-?-?-?-?- 20w 4d 191 lb 119/76 Negative -?-?-?-?-?-?-?-?-?-?-?-?- Negative A 146 -?-?-?-?-?-?-?-?-?-?-?-?- B 135 A -?-?-?-?-?-?-?-?-?-?-?-?- B -?-?-?-?-?-?-?-?-?-?-?-?- A -?-?-?-?-?-?-?-?-?-?-?-?- B A JV- has echo gloria t today at 1. no cramping or spotting. no complaints. saw general surgery and they drained one of the hemorrhoids. -?-?-?-?-?-?-?-?-?-?-?-?- B 09/14/24 -?-?-?-?-?-?-?-?-?-?-?-?- 24w 4d 202 lb 117/78 Negative -?-?-?-?-?-?-?-?-?-?-?-?- Negative A 140 -?-?-?-?-?-?-?-?-?-?-?-?- B 150 A -?--?-?-?-?-?-?-?-?-?-?-?- B -?-?-?-?-?-?-?-?-?-?-?-?- A -?-?-?-?-?-?-?-?-?-?-?-?- B A SM- no vb lof go od fm no regular ctx some pelvic pressure, seeing mfm after appointment today, reviewed ptl precautions, MFM recommends weekly testing after 32 weeks. -?-?-?-?-?-?-?-?-?-?-?-?- B 10/12/24 -?-?-?-?-?-?-?-?-?-?-?-?- 28w 4d 209 lb 4 oz 123/74 Nega tive -?-?-?-?-?-?-?-?-?-?-?-?- Negative A 141 -?-?-?-?-?-?-?-?-?-?-?-?- B 144 A -?-?-?-?-?-?-?-?-?-?-?-?- B -?-?-?--?-?-?-?-?-?-?-?-?- A -?-?-?-?-?-?-?-?-?-?-?-?- B A KW- no vb/lof/ct x. good fm. BPP and growth after appt. LARC todat. Tdap next visit. insurance papers received today and given to triage. 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 -?-?-?-?-?-?-?-?-?-?-?-?- B 10/26/24 -?-?-?-?-?-?-?-?-?-?-?-?- 30w 4d 217 lb 8 oz 122/80 Nega tive -?-?-?-?-?-?-?-?--?-?-?-?- Negative A 135 -?-?-?-?-?-?-?-?-?-?-?-?- B 155 A Cephalic -?-?-?-?-?-?-?-?-?-?-?-?- B Cephalic -?-?-?-?-?-?-?-?-?-?-?-?- A -?-?-?-?-?-?-?-?-?-?-?-?- B A SM- no vb lof go od fm nor egular ctx SM- no vb lof good fm no reg ular ctx, US today -?-?-?-?-?-?-?-?-?-?-?-?- B 11/09/24 -?--?-?-?-?-?-?-?-?-?-?-?- 32w 4d 223 lb 4 oz 114/77 Nega tive -?-?-?-?-?-?-?-?-?-?-?-?- Negative A 135 -?-?-?-?-?-?-?-?-?-?-?-?- B 145 A Cephalic -?-?-?-?-?-?-?-?-?-?-?-?- B Cephalic -?-?-?-?-?-?-?-?-?-?-?-?- A -?-?-?-?-?-?-?-?-?-?-?-?- B A SM- no vb lof go od fm irregualr ctx -?-?-?-?-?-?-?-?-?-?-?-?- B 11/16/24 -?-?-?-?-?-?-?-?-?-?-?-?- 33w 4d 222 lb 121/79 -?-?-?-?-?-?-?-?-?-?-?-?- A 157 -?-?-?-?-?-?-?-?-?-?-?-?- B 133 A Cephalic -?-?-?-?-?-?-?-?-?-?-?-?- B Cephalic -?-?-?-?-?-?-?-?-?-?-?-?- A -?-?-?-?-?-?-?-?-?-?-?-?- B A JV- no lof, vagi nal bleeding or cramping. vistaril to help with sleep at night sent to pharmacy. cs scheduled with SM -?-?-?-?-?-?-?-?-?-?-?-?- B 11/23/24 -?-?-?-?-?-?-?-?-?-?-?-?- 34w 4d 224 lb 127/84 Negative -?-?-?-?-?-?-?-?-?-?-?-?- Negative A 170 -?-?-?-?-?-?-?-?-?-?-?-?- B 150 A -?-?-?-?-?-?-?-?-?-?-?-?- B -?-?-?-?-?-?-?-?-?-?-?-?- A -?-?-?-?-?-?-?-?-?-?-?-?- B A SM- no vb lof go od fm no regular ctx co hemorrhoids -?-?-?-?-?-?-?-?-?-?-?-?- B 11/29/24 -?-?-?-?-?-?-?-?-?-?-?-?- 35w 3d 233 lb 2 oz 121/87 Nega tive -?-?-?-?-?-?-?-?-?-?-?-?- Negative A 160 -?-?-?-?-?-?-?-?-?-?-?-?- B 133 A Cephalic -?-?-?-?-?-?-?-?-?-?-?-?- B Cephalic 1 -?-?-?-?-?-?-?-?-?-?-?-?- 30 A -4 -?-?-?-?-?-?-?-?-?-?-?-?- B A JV- patient has complaints of feeling large and uncomfortable. she gained 9 pounds since last visit. No edema and no htn noted. official us report pending from today but they told her babies weigh 6 and 7 pounds. -?-?-?-?-?-?-?-?-?-?-?-?- B ROS Constitutional Constitutional: Denies change in weight, fatigue, fever(s), headache(s), poor appetite or weakness Eyes Eyes: Denies blurry vision, change in vision, seeing flashes or spots in vision ENT HEENT: Denies dizziness, headache(s), loss taste/smell or sore throat Cardiovascular Cardiovascular: Denies chest pain, dizziness, dyspnea, irregular heart rhythm, leg edema, palpitations, rapid heart rate or vomiting Respiratory/Chest Respiratory/Chest: Denies chest tightness, cough, dyspnea or breast pain Gastrointestinal Gastrointestinal: Denies abdominal pain, anorexia, constipation, cramping, diarrhea, hemorrhoids, vomiting or weight changes Genitourinary Genitourinary: Denies dysuria, flank pain, genital lesions, genital pain, urinary frequency or urinary urgency Musculoskeletal Musculoskeletal: Denies back pain, difficulty walking, joint pain, limited range of motion, muscle cramps or numbness Integumentary Integumentary: Denies lesions or unusual bruising Neurologic Neurologic: Denies abnormal movements, abnormal speech, dizziness, numbness, seizure-like activity or syncope Psychiatric Psychiatric: Denies anxiety, behavioral changes, change in appetite, change in libido, cognitive impairment, confusion, depression, difficulty concentrating, hallucinations or suicidal thoughts Endocrine Endocrinology: Denies excessive sweating, polydipsia or polyuria Hematologic/Lymphatic Hematologic/Lymphatic: Denies easy bleeding, easy bruising or lymphadenopathy Allergic/Immunologic Allergic/Immunologic: Denies itchy eyes, lip swelling, seasonal rhinorrhea, rhinitis, throat swelling, tongue swelling, eczemia, wheezing or asthma Vital Signs Vital Signs Vital Signs: 12/01/24 18:14 12/01/24 18:14 12/01/24 18:36 Temperature Temperature Source Pulse Rate 106 H Respiratory Rate Blood Pressure 154/93 H 134/86 H Blood Pressure Mean BP Systolic 154 134 BP Diastolic 93 86 Blood Pressure Source Blood Pressure Position Blood Pressure Location Pulse Ox Oxygen Delivery Method 12/01/24 18:36 12/01/24 19:11 12/01/24 19:11 Temperature Temperature Source Pulse Rate 102 H 97 Respiratory Rate Blood Pressure Blood Pressure Mean BP Systolic BP Diastolic Blood Pressure Source Blood Pressure Position Blood Pressure Location Pulse Ox 100 Oxygen Delivery Method 12/01/24 19:16 12/01/24 19:16 12/01/24 19:21 Temperature Temperature Source Pulse Rate 90 92 Respiratory Rate Blood Pressure Blood Pressure Mean BP Systolic BP Diastolic Blood Pressure Source Blood Pressure Position Blood Pressure Location Pulse Ox 98 Oxygen Delivery Method 12/01/24 19:21 12/01/24 19:26 12/01/24 19:26 Temperature Temperature Source Pulse Rate 99 Respiratory Rate Blood Pressure Blood Pressure Mean BP Systolic BP Diastolic Blood Pressure Source Blood Pressure Position Blood Pressure Location Pulse Ox 100 100 Oxygen Delivery Method 12/01/24 19:42 12/01/24 19:42 12/01/24 19:47 Temperature Temperature Source Pulse Rate 103 H 102 H Respiratory Rate Blood Pressure Blood Pressure Mean BP Systolic BP Diastolic Blood Pressure Source Blood Pressure Position Blood Pressure Location Pulse Ox 100 Oxygen Delivery Method 12/01/24 19:47 12/01/24 19:52 12/01/24 19:52 Temperature Temperature Source Pulse Rate 101 H Respiratory Rate Blood Pressure Blood Pressure Mean BP Systolic BP Diastolic Blood Pressure Source Blood Pressure Position Blood Pressure Location Pulse Ox 100 100 Oxygen Delivery Method 12/01/24 19:52 12/01/24 19:57 12/01/24 19:57 Temperature 98.9 F Temperature Source Temporal Pulse Rate 102 H 95 Respiratory Rate 16 Blood Pressure 134/86 H Blood Pressure Mean 102 BP Systolic BP Diastolic Blood Pressure Source Monitor Blood Pressure Position Semi-Fowlers Blood Pressure Location Left Arm Pulse Ox 100 100 Oxygen Delivery Method Room Air Weight Weight: 233 lb 11.04 oz Body Mass Index (BMI) 36.6 Physical Exam Const alert, oriented x3, no apparent distress and healthy appearing General Appearance: cooperative; Negative for anxious HEENT normocephalic Face and Sinus: normal facial exam Eyes EOMs intact bilaterally and no scleral icterus General Eye: normal appearance of both eyes Neck full ROM and supple Lymph Lymphatic: no lymphadenopathy noted Chest Chest: abnormal inspection of the chest Resp normal respiratory effort Effort and Inspection: able to speak in complete sentences Cardio regular rate GI soft to palpation and non-tender Inspection: gravid Palpation: soft; Negative for tender Back/Spine no CVA tenderness Extremity normal to inspection, full ROM and no clubbing, cyanosis or edema General Extremity: Negative for calf tenderness or edema Skin Lesions: no lesions Rashes: no rashes Psych mental status grossly normal Labs Labs Labs: Blood Type O POSITIVE Antibody Screen NEGATIVE Hct 35.5 % (37-47) L Hgb 12.2 g/dL (12.0-15.0) Syphilis Total Ab Non-reactive Rubella IgG Antibody Reactive (Nonreactive) Hep Bs Antigen Non-Reactive (Nonreactive) Hepatitis C Antibody Non-Reactive (Nonreactive) Chlamydia DNA (JBE) Negative (Negative) N.gonorrhoeae DNA (JEB) Negative (Negative) HIV 1&2 Antibody Non-Reactive (Nonreactive) Glucose 1 Hr 50 gm 134 mg/dL (70-140) Miscellaneous Test Assessment & Plan (1) Single umbilical artery: COMMENT: twin A (2) Monochorionic diamniotic twin gestation: COMMENT: echo nl, growth q 4 weeks, weekly bpp at 32, deliver 37 (3) AMA (advanced maternal age) multigravida 35+: (4) History of 2 sections: COMMENT: RLTCS with SM 12/10 @ 7:15 (5) Hx of maternal blood transfusion, currently : COMMENT: after (6) Supervision of high-risk : COMMENT: PRR , POORNIMA 12/31/24, boys PC Rip Cavazos Rensselear Wero (7) : QUALIFIERS: Weeks of gestation: 35 weeks Qualified Code(s): Z3A.35 - 35 weeks gestation of COMMENT: low risk NIPT, declines carrier testing. anatomy reveiwed (8) Low grade squamous intraepithelial lesion (LGSIL): COMMENT: colposcopy 05/2021:neg. 05/2022:neg pap with positive HPV; rpt pap 2022 negative (9) Hemorrhoids during : QUALIFIERS: Trimester: second trimester Qualified Code(s): O22.42 - Hemorrhoids in , second trimester PLAN: Plan After discussing the patient's diagnosis and treatment plan options, patient wishes to proceed with surgical management. I have discussed with the patient the risks, benefits, and alternatives of the procedure which include but are not limited to risks of anesthesia, bleeding, infection, possible damage to bowel, bladder, or surrounding vasculature which could lead to additional surgery to evaluate any complications. Patient agrees to procedure and wishes to proceed. plan for repeat section and bs now.
--- NOTE | 2024-12-01 20:14 | DCINST_ITS ---
Discharge Instructions Diet Discharge Diet: No restrictions DC O2, CPAP, BIPAP needs Home O2 Discharge instructions: No Dressing / Incision Discharge Activity: May Not Drive (for 2 weeks or while taking narcotic pain medications.), May Shower and May Take a Tub Bath (in 7 days.) May resume sexual activity in: 4-6 weeks Weight Bearing Status: Full weight bearing Lifting Restrictions: 20 pounds Dressing / Incision Call your doctor if your incision/area has: Continuous Slow Oozing, Sudden Increased Bleeding, Increased Pain/ Swelling, Increased Redness and Foul Smelling Discharge Call your doctor if you observe: Fever of 101 or Higher and Using more than 1 pad per hour Suture Line Care: Avoid Pulling/Pushing and Avoid Pinching/Bending Cleanse incision/area with: Soap & Water and Keep Dressing Clean & Dry Follow Up Care Please Follow Up With: Shaila Ruelas DO When: Call [phone] to make an appointment for an incision check in 1-2 weeks. Test Results: Test results from this visit will be discussed in further detail at your follow- up appointment, if applicable. Discharge Plan Admission Admit Date/Time: 12/01/24 19:29 Primary Reason for Your Visit: Attending Provider: Shaila Ruelas Primary Care Provider: Care PhysicianDixie Primary Discharge Orders/Prescriptions Prescriptions: New ibuprofen 800 mg tablet 800 mg PO Q8H PRN (Reason: pain) Qty: 30 0RF oxycodone-acetaminophen [Percocet] 5-325 mg tablet 1 tab PO Q4H PRN (Reason: pain) 7 Days Qty: 30 0RF Rx Instructions: 1-2 tabs q 4 hrs as needed for pain Continued PNV no.[id number] 400 mcg-35 mg- 25 mg-5 mg tablet,chewable 1 tab PO hydroxyzine pamoate 50 mg capsule 50 mg PO QHS Qty: 30 3RF Referrals / Follow Up: Care PhysicianDixie Primary [Primary Care Provider] - Disposition Disposition (needs filled in before D/C Order can be placed): Home, Self Care
[2024-12-01] MEDS: Cefazolin 2 GM in Syringe IV (20:17)
--- NOTE | 2024-12-01 20:37 | PLAC_PTH ---
PATIENT: ALLEN MORROW LOC: [facility] U#:[id number] AGE/SX: 39/F ROOM: WP004 RE12/01/[address]: Dr. Shaila Ruelas DO : 1985 BED: 1 DIS: 12/04/2024 SPEC #: [id number] RECD: 12/02/24 01:32 STATUS: JAIME FERNANDO #: [id number] ARTUR: 12/01/24 20:[address]: Shaila Ruelas DEPT: SURGICAL PATHOLOGY RECD BY: Maday Caballero ENTERED: 12/02/24 07:31 SP TYPE: PLACENTA OTHR DR: No Primary Care Phys Tissues: Placenta, NOS Procedures: Surgery Specimen Level V HEADER OPERATION: Delivery PRE-OP DIAGNOSIS: Repeat section, TWINS TISSUE SUBMITTED: Placenta MICROSCOPIC DIAGNOSIS Twin placenta: Monochorionic and diamniotic twin placenta. Placental disc - third trimester placenta (986gm). - Focal area of infarction (toward placenta B measuring 2.0cm in greatest dimension). Placenta A Membranes - no pathologic diagnosis. Umbilical cord - two blood vessels toward maternal end and three blood vessels toward end Placenta B Membranes - no pathologic diagnosis. Umbilical cord -three blood vessels, no pathologic diagnosis. SJ: 12/06/2024 MICROSCOPIC DESCRIPTION Slides are reviewed. GROSS DESCRIPTION SPECIMEN: TWIN PLACENTA / CLINICAL INFORMATION: A. Weight: A - 3.485 kg; B - 3.27kg B. Gestational Age: 35 weeks C. Sex: A- Male, B- Male The specimen consists of a twin placenta consisting of a single placental disc, two amniotic sacs, and two umbilical cords. Dividing membranous septum is inserted in the middle of the placental disc. Umbilical cords are not identified as placenta A or B. They are arbitrarily assigned as A & B. PLACENTAL WEIGHT (POST FIXATION): 986gm, also present in the container a detached piece of placental tissue weighing 17 gm. PLACENTAL DIMENSIONS: 23.0 x 21.0 x 4.5cm, detached piece of tissue measures 6 x 3 x 2 cm PLACENTAL SHAPE: Ovoid PLACENTAL WEIGHT FOR GESTATIONAL AGE: Within 10-99th percentile PLACENTA A: MEMBRANES - Present A. Insertion: Marginal B. Site of rupture from edge: at margin of placental disc C. Color of membrane: Sun-anderson D. Abnormalities: Sections reveal two blood vessels toward the maternal end and three blood vessels toward the end. UMBILICAL CORD - Present A. Color: Sun-anderson B. Insertion: Marginal C. Length: 34cm D. Diameter: 1.2cm E. Number of vessels: Three F. Abnormalities: None PLACENTA B: MEMBRANES - Present A. Insertion: Marginal B. Site of rupture from edge: Membranes are fragmented. Distance of rupture cannot be assessed. C. Color of membrane: Sun-anderson D. Abnormalities: None UMBILICAL CORD - Present A. Color: Sun-anderson B. Insertion: Marginal C. Length: 33cm D. Diameter: 1.4cm E. Number of vessels: Three F. Abnormalities: None PLACENTAL DISC - Present A. Color of surface: Sun-anderson B. surface abnormalities: None C. Maternal cotyledons: disrupted, completeness of placenta cannot be assessed. D. Attached retro placental clot: None E. Cut surface: Dark red and spongy F. Lesions: Sections of placental disc reveal a sun indurated area close to surface measuring 2.0cm in greatest dimension. This area is present close to Placenta B portion of placental disc G. Separate clot: Also present in the container are multiple detached blood clots weighing in aggregate 41.0gm and measuring in aggregate 7.0 x 5.0 x 3.0cm. SECTIONS SUBMITTED: 12 cassettes 1 - Dividing membranous septum, 2-6 - placenta A (2 - membrane roll, 3 - umbilical cord, end notched - inked black, 4-6 - body of the placenta including maternal and surfaces), 7-11 - placenta B (7 - membrane roll, 8 - umbilical cord, end notched - inked black, 9-11 - body of the placenta including maternal and surfaces) and lesion, 12- detached piece of placental tissue. 12/03/2024 TC:5 CPT: 88341 x2
[2024-12-01 20:43] LABS: Syphilis Antibodies Non-reactive
--- NOTE | 2024-12-01 21:02 | EX.PCM.OBRPT ---
Assessment & Plan (1) Thrombosed external hemorrhoid: COMMENT: s/p draining of hemorrhoid in GS. pt to follow up post for more surgery. (2) Single umbilical artery: COMMENT: twin A (3) Monochorionic diamniotic twin gestation: COMMENT: echo nl, growth q 4 weeks, weekly bpp at 32, deliver 37 (4) AMA (advanced maternal age) multigravida 35+: (5) History of 2 sections: COMMENT: RLTCS with SM 12/10 @ 7:15 (6) Hx of maternal blood transfusion, currently : COMMENT: after (7) Supervision of high-risk : COMMENT: PRR , POORNIMA 12/31/24, boys Rip Rodriguez, Barbie Wero (8) : QUALIFIERS: Weeks of gestation: 35 weeks Qualified Code(s): Z3A.35 - 35 weeks gestation of COMMENT: low risk NIPT, declines carrier testing. anatomy reveiwed (9) Low grade squamous intraepithelial lesion (LGSIL): COMMENT: colposcopy 05/2021:neg. 05/2022:neg pap with positive HPV; rpt pap 2022 negative (10) Hemorrhoids during : QUALIFIERS: Trimester: second trimester Qualified Code(s): O22.42 - Hemorrhoids in , second trimester Maternal Data Information POORNIMA Calculator Estimated Delivery Date Method Current WG Current Estimate 12/31/24 LMP (Certain) 35w 5d Other Estimates 12/28/24 Ultrasound #1 36w 1d # 2 Final POORNIMA Source: LMP Gestational age: 35 weeks 5 days [place] Doctor Who Attended Delivery: Perla Flannery Operative Report (OB) Cecarean Details Procedure Type: low transverse Date of Procedure: 12/01/24 Procedure Start Time: 20:32 Procedure Stop Time: 21:03 Time of Delivery: 20:37 Pre-Operative Diagnosis: Repeat Elective and Other (twin gestation , mono/di, active labor) Other Pre-Operative diagnosis: noen Post-Operative Diagnosis: Same as Pre-operative diagnosis Classification: JENNIFER Type of Anesthesia: Spinal Antibiotic Given: Ancef 2 grams IV x1 Drain: Mayorga to straight drain Estimated Blood Loss: 400cc Findings Description of surgery: The patient is a 39 presented for repeat due to active labor at 35 weeks 3 days with mono/di twins. Spinal anesthesia was placed without difficulty. Mayorga catheter was placed. The patient was placed in the dorsal supine position with leftward tilt. Patient was prepped and draped in the normal sterile fashion. Pfannenstiel skin incision was made with the scalpel and carried through to the underlying layer of fascia with the scalpel. Fascia was nicked in the midline and the incision extended laterally. The rectus bellies were dissected off superiorly and inferiorly with out complication both sharply and bluntly. The peritoneum was entered digitally. The incision was stretched and a low transverse uterine incision was made with the scalpel. The 's head was delivered atraumatically followed by the anterior and posterior shoulders without complication the rest of the infant delivered. The cord was clamped and cut and the infant was handed off to awaiting nurse. The second was delivered in a similar fashion. The placenta was delivered spontaneously immediately following and was noted to be intact and have a three-vessel cord. The uterus was exteriorized cleared of all clots and debris, and the incision was closed in a single layer closure using #1 vicryll. The ovaries and fallopian tubes were noted to be within normal limits. The uterus was returned to the maternal abdomen and gutters were cleared of all clots and debris. The peritoneum was closed with 3-0 Monocryl in a running fashion. The Fascia was closed with 0 PDS in a running fashion. Subcutaneous tissue was copiously irrigated and the skin was closed with 3-0 Monocryl in a subcuticular fashion. Mepilex dressing was applied without complication. Patient was taken to recovery in stable condition. It was discussed with the patient that based on the clinical information obtained during this encounter, combined with her history, at this time I would recommend repeat for future deliveries if further pregnancies are desired. Surgical findings: viable male twin infants, normal uterus, tubes, and ovaries. Presentation: Vertex Amniotic Membrane Rupture Type: Artificial Amniotic Fluid Description: Clear Placental Delivery Description: Manual Removal Placenta Disposition: Sent to Pathology Specimen collected: Yes Description of specimen(s) removed: placenta Cord Vessel Description: 3 Vessels Cord Entanglement: None Infant A gender: Male (1 minute): 8 (5 minute): 8 Delayed Cord Clamping: Yes Senior Cobol Developer chief of party: Yes Door Slinger: Ramona,Fariba M Tasks completed by family practice physician assistant: Closing, Retracting and Other (fundal pressure ) Additional human resources benefits assistant?: No Complications Complications: No Baby B Information Amniotic Membrane Rupture Type: Artificial Presentation: Vertex Operative Information Mode of Delivery: Cord Vessel Description: 2 Vessels Cord Entanglement: None Infant B gender: Male (1 minute): 9 (5 minute): 9 Delayed Cord Clamping: Yes Admit VTE Documentation VTE Present on Admission: No VTE Mechan Device Prophylaxis: SCD's VTE Pharm Prophylaxis Ordered: Yes Multi Select Codes Urinary/Genital Urinary/Genital CPT Codes: 16449 Delivery [facility]
[2024-12-01] MEDS: Oxytocin 15 Units/NS 250ml 15 UNITS/250 ML IV.SOLN 83 UNITS IV (21:20)
[2024-12-01] MEDS: Ketorolac 30 MG/ML Syringe IV (21:54)
[2024-12-01] MEDS: 0.9% Saline Lock 10 ML Syringe IV (21:54)
[2024-12-02] VITALS (11 sets, daily range): BP systolic 98–137; BP diastolic 49–92; PULSE 62–87; RESP 16–18; TEMP 36.2–36.8; O2SAT 97–100
[2024-12-02] MEDS: Acetaminophen 500 MG Tablet 1000 MG PO ×4 (01:38→18:49)
[2024-12-02 02:00] LABS: Pathology Specimen OB SEE PATHOLOGY REPORT
[2024-12-02] MEDS: Nalbuphine 10 MG/ML Ampul 5 MG IV (02:58)
[2024-12-02] MEDS: 0.9% Saline Lock 10 ML Syringe IV ×4 (02:58→20:15)
[2024-12-02] MEDS: Ondansetron 4 MG/2 ML Vial IV (03:11)
[2024-12-02] MEDS: Ketorolac 30 MG/ML Syringe IV ×3 (03:50→16:26)
[2024-12-02 06:20] LABS: Hematocrit 32.1 % (37-47); Hemoglobin 11.1 g/dL (12.0-15.0); Mean Corp Hgb Conc 34.6 g/dL (32-36); Mean Corpuscular Hgb 29.5 pg (27.0-32.0); Mean Corpuscular Volume 85.4 fL (81-99); Mean Platelet Vol. 10.6 fl (6.2-12.0); Platelet Count 186 K/mm3 (150-450); RBC Distribution Width CV 12.1 % (11.6-14.6); RBC Distribution Width SD 37.2 fl (35.1-43.9); Red Blood Count 3.76 M/mm3 (4.2-5.4); White Blood Count 20.9 K/mm3 (4.4-11.0)
--- NOTE | 2024-12-02 09:25 | PCM.PN.CNM ---
Subjective Subjective Patient doing well without complaints. Tolerating PO. Ambulatin without difficulty. has not voided since arauz removed. Feeding well. Denies chest pain, shortness of breath, calf pain/swelling, fevers, chills, lightheadedness. Objective Data Objective Data Vital Signs: Vital Signs Temp Pulse Resp BP Pulse Ox O2 Del Method 97.7 F L 65 16 98/73 98 Room Air 12/02/24 05:19 12/02/24 05:19 12/02/24 05:19 12/02/24 05:19 12/02/24 05:19 12/02/24 05:19 Oxygen Delivery Method Room Air Weight: 233 lb 11.04 oz Body Mass Index (BMI) 36.6 Intake & Output: Intake and Output for Last 24 Hours 11/30/24 12/01/24 12/02/24 23:59 23:59 23:59 Intake Total 1520 / 1520 250 / 250 Output Total 1450 / 1450 150 / 150 Balance 70 / 70 100 / 100 Lab / Micro Data 12/02/24 06:10 12/01/24 18:30 Labs: Laboratory Results - last 24 hr 12/01/24 18:30: WBC 15.5 H, RBC 4.14 L, Hgb 12.2, Hct 35.5 L, MCV 85.7, MCH 29.5, MCHC 34.4, RDW Std Deviation 38.4, RDW Coeff of Zachariah 12.3, Plt Count 223, MPV 10.6, Creatinine 0.75, Estim Creat Clear Calc 128.67, Est GFR (MDRD) Af Amer 112, Est GFR (MDRD) Non-Af 93, Uric Acid 4.7, AST 27, ALT 17, Lactate Dehydrogenase 171, Syphilis Total Ab Non-reactive, Blood Type O POSITIVE, Antibody Screen NEGATIVE 12/01/24 19:05: Urine Color Yellow, Urine Clarity Clear, Urine pH 6.0, Ur Specific [place] 1.015, Urine Protein Negative, Urine Glucose (UA) Normal, Urine Ketones Negative, Urine Occult Blood Negative, Urine Nitrite Negative, Urine Bilirubin Negative, Urine Urobilinogen Normal, Ur Leukocyte Esterase Negative, Urine RBC 0 SEEN, Urine WBC 0 SEEN, Ur Squamous Epith Cells 0-5 SEEN, Amorphous Sediment 1+, Urine Bacteria 1+, Urine Mucus 0 SEEN, U Random Total Protein < 6.0, Urine Creatinine 42.20, Protein/Creatinin Ratio TNP 12/02/24 06:10: WBC 20.9 H, RBC 3.76 L, Hgb 11.1 L, Hct 32.1 L, MCV 85.4, MCH 29.5, MCHC 34.6, RDW Std Deviation 37.2, RDW Coeff of Zachariah 12.1, Plt Count 186, MPV 10.6 Physical Exam Const alert and oriented x3 Neck full ROM Chest inspection of chest normal Resp normal respiratory effort GI normal to inspection, nondistended, normoactive bowel sounds Uterus Palpation: uterus fundus firm (below u) Extremity normal to inspection, full ROM and no calf tenderness Skin no rashes or lesions noted Psych mental status grossly normal Assessment & Plan (1) Status post delivery: (2) Sterilization: COMMENT: [place] [facility] pt has now does not want to have BS (3) Monochorionic diamniotic twin gestation: COMMENT: echo nl, growth q 4 weeks, weekly bpp at 32, deliver 37 PLAN: Plan s/p LTCS PPD # 1 1. routine post care 2. breast feeding- support given 3. rh positive 4. rubella immune 5. bladder scan if unable to void, straight cath if >200ml. repeat q6 hours
[2024-12-02] MEDS: Senna/Docusate Sodium 1 Tablet PO (09:47)
[2024-12-02] MEDS: Enoxaparin 40 MG/0.4 ML Syringe SC (09:47)
[2024-12-02] MEDS: oxyCODONE 5 MG Tablet PO (20:58)
[2024-12-02] MEDS: Ibuprofen 600 MG Tablet PO (20:59)
[2024-12-03] MEDS: oxyCODONE 5 MG Tablet PO ×5 (01:53→22:59)
[2024-12-03] MEDS: Acetaminophen 500 MG Tablet 1000 MG PO ×4 (01:54→17:59)
[2024-12-03 01:57] VITALS: BP 102/50; PULSE 69; RESP 16; TEMP 36.6; O2SAT 97
[2024-12-03] MEDS: Ibuprofen 600 MG Tablet PO ×3 (06:56→17:59)
--- NOTE | 2024-12-03 07:54 | PCM.PN.OB ---
Subjective Subjective Patient doing well without complaints. Tolerating PO. Ambulating and voiding without difficulty. Feeding well. Denies chest pain, shortness of breath, calf pain/swelling, fevers, chills, lightheadedness. Objective Data Objective Data Vital Signs: Vital Signs Temp Pulse Resp BP Pulse Ox O2 Del Method 97.9 F 69 16 102/50 L 97 Room Air 12/03/24 01:57 12/03/24 01:57 12/03/24 01:57 12/03/24 01:57 12/03/24 01:57 12/03/24 01:57 Oxygen Delivery Method Room Air Weight: 233 lb 11.04 oz Body Mass Index (BMI) 36.6 Intake & Output: Intake and Output for Last 24 Hours 12/01/24 12/02/24 12/03/24 23:59 23:59 23:59 Intake Total 1520 / 1520 250 / 250 Output Total 1450 / 1450 1650 / 1650 Balance 70 / 70 -1400 / -1400 Lab / Micro Data Attestation: I reviewed the patient's lab results. 12/02/24 06:10 12/01/24 18:30 ROS Constitutional Constitutional: Reports systems reviewed and no addt'l complaints, except as documented; Denies anorexia or headache(s) Cardiovascular Cardiovascular: Reports systems reviewed and no addt'l complaints, except as documented; Denies dizziness, dyspnea, nausea or tachypnea Respiratory/Chest Respiratory/Chest: Reports systems reviewed and no addt'l complaints, except as documented; Denies cough, dyspnea, shortness of breath at rest or tachypnea Gastrointestinal Gastrointestinal: Reports systems reviewed and no addt'l complaints, except as documented; Denies abdominal pain, constipation or nausea Genitourinary Genitourinary: Reports systems reviewed and no addt'l complaints, except as documented; Denies burning urination, difficulty urinating, dysuria, urinary frequency or urinary incontinence Musculoskeletal Musculoskeletal: Reports systems reviewed and no addt'l complaints, except as documented Integumentary Integumentary: Reports systems reviewed and no addt'l complaints, except as documented Neurologic Neurologic: Reports systems reviewed and no addt'l complaints, except as documented; Denies abnormal speech, dizziness or headache(s) Psychiatric Psychiatric: Reports systems reviewed and no addt'l complaints, except as documented Endocrine Endocrinology: Reports systems reviewed and no addt'l complaints, except as documented Hematologic/Lymphatic Hematologic/Lymphatic: Reports systems reviewed and no addt'l complaints, except as documented Physical Exam Const alert, oriented x3 and no apparent distress Neck full ROM Resp normal respiratory effort, normal air movement and no retractions Effort and Inspection: able to speak in complete sentences and symmetric chest movement GI soft to palpation Inspection: incision intact Bladder / Kidney Exam: bladder normal to palpation Uterus Palpation: uterus fundus Extremity normal to inspection and full ROM Psych mental status grossly normal, thought process normal and cooperative Assessment & Plan (1) Status post delivery: PLAN: s/p LTCS PPD # 2 1. routine post care 2. breast feeding- support given 3. rh positive 4. rubella immune (2) Sterilization: COMMENT: plan BS at [facility], 09/24/24 pt has now does not want to have BS (3) Thrombosed external hemorrhoid: COMMENT: s/p draining of hemorrhoid in GS. pt to follow up post for more surgery. (4) Single umbilical artery: COMMENT: twin A (5) Monochorionic diamniotic twin gestation: COMMENT: echo nl, growth q 4 weeks, weekly bpp at 32, deliver 37 (6) AMA (advanced maternal age) multigravida 35+: (7) History of 2 sections: COMMENT: RLTCS with 12/10 @ 7:15 (8) Hx of maternal blood transfusion, currently : COMMENT: after (9) Supervision of high-risk : COMMENT: PRR , POORNIMA 12/31/24, boys PC Rip Cavazos Rensselear Wero (10) : QUALIFIERS: Weeks of gestation: 35 weeks Qualified Code(s): Z3A.35 - 35 weeks gestation of COMMENT: low risk NIPT, declines carrier testing. anatomy reveiwed (11) Low grade squamous intraepithelial lesion (LGSIL): COMMENT: colposcopy 05/2021:neg. 05/2022:neg pap with positive HPV; rpt pap 2022 negative (12) Hemorrhoids during : QUALIFIERS: Trimester: second trimester Qualified Code(s): O22.42 - Hemorrhoids in , second trimester Charges/Coding Multi Select Codes Urinary/Genital Urinary/Genital CPT Codes: No Charge
[2024-12-03 07:57] VITALS: BP 127/90; PULSE 75; RESP 16; TEMP 36.4; O2SAT 100
--- NOTE | 2024-12-03 09:33 | CASEMGMT ---
Social Work Assessment Labor and Delivery Unit Patient Address: [address] [place] [address] Phone number: [phone] Date of Referral: 12/01/24 Time of Referral:? [id number] Referred By: Dr. Mace Date of Intervention: 12/03/23 Time of Intervention:? 0900 Reason for Referral:? Twins in special care nursery Sw completed chart review and acknowledges social work consult due to twin babies being admitted to special care nursery. Sw presented to bedside and introduced self to mother of baby (MOB- Susie) and father of baby (FOB- Wero). Sw explained reason for sw involvement and completed psychosocial assessment. History obtained from: medical records, MOB? and FOB. Household composition: Currently residing in the family home is TIANA, LORI, TIANA's three older children: Macy (12), Rip (9) and Barbie (6). twins will be added to residence when ready for discharge. Parents deny any issues or concerns with housing, stating that it is safe and secure. Patient's parent/guardian status: TIANA states that she and LORI have been together for 2 years after meeting online. twins are first babies for LORI. No concerns regarding domestic violence or intimate partner violence. ? Medical History: TIANA is 39 year old female who is 6, para 3- now 5 following labor and delivery of baby twins. TIANA received routine care during with [facility]. TIANA presented to hospital and delivered babies via repeat at 35 weeks gestation on 12/01/24. Baby A: Tutu Guzmán, was born weighing 7lb 11oz with apgars of 8 and 8 at one and five minutes of life, respectfully. Baby B: Antony Dowell, was born weighing 7lb 3oz with apgars of 9 and 9 at one and five minutes of life, respectfully. TIANA is breast feeding and baby's will be followed by pediatricians at [facility]. Educational Status:? Both parents obtained their Bachelor's degrees. No problems with reading, learning or comprehension. 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 He is able to take 2-6 weeks off for paternity leave. TIANA was previously working, but stopped in August. At this time she is going to be a stay at home mom. Infant Supplies: Parents have obtained all necessary baby supplies, including: car seat, two separate sleep spaces, clothes, diapers and wipes. Childcare/Caregiver(s):? MOB will be the primary caregiver to baby Transportation:?? Both parents have their drivers license and reliable means of transportation. No barriers at this time. Programs/Agencies Involved: ?Parents are not connected to any community agencies that assist them financially. ?? Children Services/Legal Issues:??? No prior involvement with children services, no issues or concerns warranting referral to be made at this time. Behavioral Health Issues: ??Mental Health History: LORI denies mental health history. MOB states that she has been diagnosed with anxiety and is prescribed hydroxyzine. TIANA states that she does not take the medication any more as her mental health symptoms were situational and are not something that she struggles with regularly. TIANA states that she did not experience any baby blues or depression/ anxiety after her former deliveries. ?? Substance Use History:?Parents deny substance use prior to and during . ? Family History:??Parents deny family history of addiction or significant mental health diagnoses. ??? Drug Screens: No drug screens observed during chart review. Family/Social Stressors:?Parents deny issues, concerns or stressors. Parents state that they are still navigating things with their other children while they are still admitted. They have family members and friends who are helping them. Support Systems: MOB states that both grandma's are their biggest supports and maternal aunt. Depression/Shaken Baby/Safe Sleeping: Angelique educated parents on signs and symptoms of baby blues and mood and anxiety disorders to be mindful of. Parents state that they understand what to look out for. TIANA states that she has a lot of family who is supportive and helps with the other children. Sw educated MOB and LORI on shaken baby prevention and ABCs of safe sleep. Parents confirmed twins have two separate sleep spaces. ASSESSMENT:?MOB and baby admitted following labor and delivery. TIANA and LORI have been together for two years after meeting online. These are first baby's for parents together, and will be residing with MOB and LORI and MOB's three older children. No housing concerns. Parents express no needs or concerns at this time. Parents state that they are doing their best to navigate life with the twins requiring admission to SNC. MOB still admitted to . Parents have been at bedside and active in care of newborns. NO concers reported by bedside RN. Parents have all necessary baby supplies and natural supports in place. PLAN:?? No other services requested or indicated. MOB and baby to be discharged when medically ready. Parents were provided literature regarding: signs and symptoms of baby blues and mood and anxiety disorders, Help Me Grow, shaken baby prevention, ABCs of safe sleep and a list of [facility] resources that are available for them should any needs present themselves. Radha Joshi, HYDROELECTRIC MECHANIC, NIP WRAPPER
[2024-12-03] MEDS: Senna/Docusate Sodium 1 Tablet PO (12:27)
[2024-12-03] MEDS: Enoxaparin 40 MG/0.4 ML Syringe SC (12:31)
[2024-12-03 18:05] VITALS: BP 122/91; PULSE 81; RESP 18; TEMP 36.6; O2SAT 100
[2024-12-03 19:32] VITALS: BP 128/85; PULSE 79; RESP 16; TEMP 36.5; O2SAT 100
[2024-12-04 01:48] VITALS: BP 132/87; PULSE 75; RESP 16; TEMP 36.7; O2SAT 97
[2024-12-04] MEDS: Ibuprofen 600 MG Tablet PO ×3 (01:56→14:21)
[2024-12-04] MEDS: Acetaminophen 500 MG Tablet 1000 MG PO ×3 (01:56→14:21)
[2024-12-04] MEDS: oxyCODONE 5 MG Tablet PO ×4 (03:10→16:04)
[2024-12-04] MEDS: Enoxaparin 40 MG/0.4 ML Syringe SC (07:49)
[2024-12-04] MEDS: Senna/Docusate Sodium 1 Tablet PO (07:49)
[2024-12-04 08:00] VITALS: BP 117/71; PULSE 77; RESP 16; TEMP 36.5; O2SAT 97
--- NOTE | 2024-12-04 09:33 | PCM.PN.OB ---
Subjective Subjective Patient doing well without complaints. Tolerating PO. Ambulating and voiding without difficulty. Feeding well. Denies chest pain, shortness of breath, calf pain/swelling, fevers, chills, lightheadedness. Objective Data Objective Data Vital Signs: Vital Signs Temp Pulse Resp BP Pulse Ox O2 Del Method 97.7 F L 77 16 117/71 97 Room Air 12/04/24 08:00 12/04/24 08:00 12/04/24 08:00 12/04/24 08:00 12/04/24 08:00 12/04/24 08:00 Oxygen Delivery Method Room Air Weight: 233 lb 11.04 oz Body Mass Index (BMI) 36.6 Intake & Output: Intake and Output for Last 24 Hours 12/02/24 12/03/24 12/04/24 23:59 23:59 23:59 Intake Total 250 / 250 Output Total 1650 / 1650 Balance -1400 / -1400 Lab / Micro Data Attestation: I reviewed the patient's lab results. 12/02/24 06:10 12/01/24 18:30 ROS Constitutional Constitutional: Reports systems reviewed and no addt'l complaints, except as documented; Denies anorexia or headache(s) Cardiovascular Cardiovascular: Reports systems reviewed and no addt'l complaints, except as documented; Denies dizziness, dyspnea, nausea or tachypnea Respiratory/Chest Respiratory/Chest: Reports systems reviewed and no addt'l complaints, except as documented; Denies cough, dyspnea, shortness of breath at rest or tachypnea Gastrointestinal Gastrointestinal: Reports systems reviewed and no addt'l complaints, except as documented; Denies abdominal pain, constipation or nausea Genitourinary Genitourinary: Reports systems reviewed and no addt'l complaints, except as documented; Denies burning urination, difficulty urinating, dysuria, urinary frequency or urinary incontinence Musculoskeletal Musculoskeletal: Reports systems reviewed and no addt'l complaints, except as documented Integumentary Integumentary: Reports systems reviewed and no addt'l complaints, except as documented Neurologic Neurologic: Reports systems reviewed and no addt'l complaints, except as documented; Denies abnormal speech, dizziness or headache(s) Psychiatric Psychiatric: Reports systems reviewed and no addt'l complaints, except as documented Endocrine Endocrinology: Reports systems reviewed and no addt'l complaints, except as documented Hematologic/Lymphatic Hematologic/Lymphatic: Reports systems reviewed and no addt'l complaints, except as documented Physical Exam Const alert, oriented x3 and no apparent distress Neck full ROM Resp normal respiratory effort, normal air movement and no retractions Effort and Inspection: able to speak in complete sentences and symmetric chest movement GI soft to palpation Inspection: incision intact Bladder / Kidney Exam: bladder normal to palpation Uterus Palpation: uterus fundus Extremity normal to inspection and full ROM Psych mental status grossly normal, thought process normal and cooperative Assessment & Plan (1) Status post delivery: PLAN: s/p LTCS PPD # 3 1. routine post care 2. breast feeding- support given 3. rh positive 4. rubella immune 5. Discharge home (2) Sterilization: COMMENT: plan BS at [facility], 09/24/24 pt has now does not want to have BS (3) Thrombosed external hemorrhoid: COMMENT: s/p draining of hemorrhoid in GS. pt to follow up post for more surgery. (4) Single umbilical artery: COMMENT: twin A (5) Monochorionic diamniotic twin gestation: COMMENT: echo nl, growth q 4 weeks, weekly bpp at 32, deliver 37 (6) AMA (advanced maternal age) multigravida 35+: (7) History of 2 sections: COMMENT: RLTCS with 12/10 @ 7:15 (8) Hx of maternal blood transfusion, currently : COMMENT: after (9) Supervision of high-risk : COMMENT: PRR , POORNIMA 12/31/24, boys PC Rip Cavazos Rensselear Wero (10) : QUALIFIERS: Weeks of gestation: 35 weeks Qualified Code(s): Z3A.35 - 35 weeks gestation of COMMENT: low risk NIPT, declines carrier testing. anatomy reveiwed (11) Low grade squamous intraepithelial lesion (LGSIL): COMMENT: colposcopy 05/2021:neg. 05/2022:neg pap with positive HPV; rpt pap 2022 negative (12) Hemorrhoids during : QUALIFIERS: Trimester: second trimester Qualified Code(s): O22.42 - Hemorrhoids in , second trimester Charges/Coding Multi Select Codes Urinary/Genital Urinary/Genital CPT Codes: No Charge
--- NOTE | 2024-12-04 09:34 | PCM.DC.SUM ---
Providers Date of Admission: 12/01/24 Date of Discharge: 12/04/24 Primary Care Physician: No Primary Care Phys Reason For Visit: REPEAT Diagnosis Discharge Diagnosis (1) Status post delivery: Status: Acute Code(s): Z98.891 - History of uterine scar from previous surgery Plan: s/p LTCS PPD # 3 1. routine post care 2. breast feeding- support given 3. rh positive 4. rubella immune 5. 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 (5) Monochorionic diamniotic twin gestation: Status: Acute Code(s): O30.039 - Twin , monochorionic/diamniotic, unspecified trimester (6) AMA (advanced maternal age) multigravida 35+: Status: Acute Code(s): O09.529 - Supervision of elderly multigravida, unspecified trimester (7) History of 2 sections: Status: Acute Code(s): Z98.891 - History of uterine scar from previous surgery (8) Hx of maternal blood transfusion, currently : Status: Acute Code(s): O09.299 - Supervision of with other poor reproductive or obstetric history, unspecified trimester (9) Supervision of high-risk : Status: Acute Code(s): O09.90 - Supervision of high risk , unspecified, unspecified trimester (10) : Status: Acute Code(s): Z34.90 - Encounter for supervision of normal , unspecified, unspecified trimester Qualifiers: Weeks of gestation: 35 weeks Qualified Code(s): Z3A.35 - 35 weeks gestation of (11) Low grade squamous intraepithelial lesion (LGSIL): Status: Acute (12) Hemorrhoids during : Status: Acute Code(s): O22.40 - Hemorrhoids in , unspecified trimester Qualifiers: Trimester: second trimester Qualified Code(s): O22.42 - Hemorrhoids in , second trimester Medications at Discharge Home Medications PNV 153-FA 400 mcg-om3 35 mg-dha 25 mg-epa 5 mg-fish oil chew tablet 1 tab PO 05/18/24 hydroxyzine pamoate 50 mg capsule 50 mg PO QHS #30 caps 11/16/24 ibuprofen 800 mg tablet 800 mg PO Q8H PRN pain #30 tabs 12/01/24 oxycodone-acetaminophen 5 mg-325 mg tablet (Percocet) 1 tab PO Q4H PRN pain 7 days #30 tabs 12/01/24 sennosides 8.6 mg-docusate sodium 50 mg tablet (Stimulant Laxative Plus) 1 - 2 tab PO DAILY #30 tabs 12/04/24 Hospital Course Operations section Procedures None Summary of Care Provided Minutes Spent on Discharge: 30 Physical Exam Const alert, oriented x3 and no apparent distress Neck full ROM Resp normal respiratory effort, normal air movement and no retractions Effort and Inspection: able to speak in complete sentences and symmetric chest movement GI soft to palpation Inspection: incision intact Bladder / Kidney Exam: bladder normal to palpation Uterus Palpation: uterus fundus Extremity normal to inspection and full ROM Psych mental status grossly normal, thought process normal and cooperative Weight / BMI Weight Weight: 233 lb 11.04 oz Body Mass Index (BMI) 36.6 ABG / Lab / Microbiology Data 12/02/24 06:10 12/01/24 18:30 D/C Instructions Discharge Diet: No restrictions May shower in (days): 0 May resume sexual activity in: 4-6 weeks Weight Bearing Status: Full weight bearing Call your doctor if your incision/area has: Continuous Slow Oozing, Sudden Increased Bleeding, Increased Pain/ Swelling, Increased Redness and Foul Smelling Discharge Call your doctor if you observe: Fever of 101 or Higher and Using more than 1 pad per hour Suture Line Care: Avoid Pulling/Pushing and Avoid Pinching/Bending Cleanse incision/area with: Soap & Water and Keep Dressing Clean & Dry DC O2, CPAP, BIPAP Needs Home O2 Discharge instructions: No Please Follow Up With: Shaila Ruelas DO When: Call [phone] to make an appointment for an incision check in 1-2 weeks. Meaningful Use Info Meaningful Use Meaningful Use Diagnoses (Choose all that apply): None applicable Ischemic Stroke Statin Dosing Therapy Reference: STATIN DOSE THERAPY REFERENCE: * Patients > 75 years receive moderate or high dose statin therapy. * Patients 75 years or YOUNGER should receive HIGH intensity statin dose unless contraindicated. You will be required to document reason for non-treatment if statin daily dose does not meet guidelines. HIGH DOSE STATIN THERAPY DAILY Atorvastatin > than or = to 40 mg Rosuvastatin > than or = to 20 mg Amlodipine + Atorvastatin > than or = to 2.5/40 mg Ezetimibe + Simvastatin 10/80 mg Simvastatin 80mg Discharge Plan Admission Admit Date/Time: 12/01/24 19:25 Primary Reason for Your Visit: Attending Provider: Shaila Ruelas Primary Care Provider: Care Physician,Dixie Primary Discharge Orders/Prescriptions Prescriptions: New ibuprofen 800 mg tablet 800 mg PO Q8H PRN (Reason: pain) Qty: 30 0RF oxycodone-acetaminophen [Percocet] 5-325 mg tablet 1 tab PO Q4H PRN (Reason: pain) 7 Days Qty: 30 0RF Rx Instructions: 1-2 tabs q 4 hrs as needed for pain sennosides-docusate sodium [Stimulant Laxative Plus] 8.6-50 mg Tablet 1 - 2 tab PO DAILY Qty: 30 0RF Continued PNV [id number] 400 mcg-35 mg- 25 mg-5 mg tablet,chewable 1 tab PO hydroxyzine pamoate 50 mg capsule 50 mg PO QHS Qty: 30 3RF Referrals / Follow Up: Care Physician,No Primary [Primary Care Provider] - Disposition Disposition (needs filled in before D/C Order can be placed): Home, Self Care Charges/Coding Multi Select Codes Urinary/Genital Urinary/Genital CPT Codes: No Charge
[2024-12-04 14:32] VITALS: BP 131/80; PULSE 86; RESP 16; TEMP 36.8; O2SAT 97
--- NOTE | 2024-12-04 14:35 | NURSING ---
pt spending lots of time in the [facility] holding and feeding infants- plan for today is to dc to hotel status- pt obtained meds from outpt pharmacy for discharge. Reviewing discharge instructions with pt through out the day and pt verbalizing understanding
--- NOTE | 2024-12-04 16:20 | NURSING ---
1615 pt to the [facility]
== END 2024-12-04 16:15 | disposition home or self-care (01) | DRG 787 ==
LOC: WPOUT 22:10 → WP 22:10
PROVIDERS: Admitting Provider Obstetrics & Gynecology; Referring Provider Obstetrics & Gynecology; Visit Provider Obstetrics & Gynecology
DX: O34.211 Maternal care for low transverse scar from previous cesarean delivery (principal); O22.43 Hemorrhoids in pregnancy, third trimester; O87.2 Hemorrhoids in the puerperium; Z37.2 Twins, both liveborn; O30.033 Twin pregnancy, monochorionic/diamniotic, third trimester; O69.89X1 Labor and delivery complicated by other cord complications, fetus 1; Z3A.35 35 weeks gestation of pregnancy
CPT/HCPCS: 59025; 59050; 81001; 82565; 82570; 83615; 84156; 84450; 84460; 84550; 85027; 86780; 86850; 86900; 86901; 88307; 99221; A4216; G0378; J2405

== ENCOUNTER 2024-12-07 19:20 | Outpatient (CLI) | payer OTHER, MEDICAID, SELFPAY ==
[2024-12-07 19:37] VITALS: BP 120/80; PULSE 71; RESP 16; TEMP 36.2; O2SAT 97
[2024-12-07 19:45] VITALS: BP 134/89
[2024-12-07 20:00] VITALS: BP 122/86
--- NOTE | 2024-12-07 20:42 | NURSING ---
call to provider about pt concerns about her swelling getting worse. she wanted her blood pressure to be checked to rule out pre-e. serial BP's were taken, 120/80, 134/89, 122/86. pt assess is WNL, fundus is 2 below umbilicus, bleeding is scant to small. pt encouraged to ambulate and drink fluids. provider gave order to discharge pt.
--- NOTE | 2024-12-07 23:28 | OB.TRI.PN ---
Progress Notes Date of Service: 12/07/24 Progress Note: Florecita Lozano presented to L&D 12/07/24 with the complaint of worsening swelling after delivery. She denies headaches. She presented to rule out pre-eclampsia. Blood pressures were noted to be normal at 120's/80's. Patient was reassured of normal blood pressures. She denies calf tenderness She was discharged to home after vitals were taken and she was reassured. Assessment & Plan (1) Edema:
== END 2024-12-07 20:50 | disposition home or self-care (01) ==
LOC: WPOUT 19:26 → WP 19:26
PROVIDERS: Referring Provider Obstetrics & Gynecology; Visit Provider Obstetrics & Gynecology
DX: O99.893 Other specified diseases and conditions complicating puerperium (principal); R60.9 Edema, unspecified
CPT/HCPCS: 99221; G0378

== ENCOUNTER → 2024-12-15 | Outpatient (CLI) | payer OTHER, MEDICAID, SELFPAY | END | disposition home or self-care (01) | PROVIDERS: Referring Provider Nurse Practitioner Women's Health; Visit Provider Nurse Practitioner Women's Health | DX: R30.0 Dysuria (principal) ==

== ENCOUNTER → 2025-01-12 | Outpatient (CLI) | payer OTHER, MEDICAID, SELFPAY ==
[2025-01-17 16:08] LABS: HPV APTIMA, High Risk Negative (Negative)
== END | disposition home or self-care (01) ==
LOC: LABSPEC 16:26
PROVIDERS: Obstetrics & Gynecology; Referring Provider Nurse Practitioner Women's Health; Visit Provider Nurse Practitioner Women's Health
DX: Z12.4 Encounter for screening for malignant neoplasm of cervix (principal)
CPT/HCPCS: 87624; 88175; G0145

== ENCOUNTER 2025-05-27 06:00 | Day surgery (SDC) | payer OTHER, MEDICAID, SELFPAY ==
[2025-05-27] VITALS (14 sets, daily range): BP systolic 99–133; BP diastolic 53–85; PULSE 56–108; RESP 14–18; TEMP 36.1–36.5; O2SAT 97–100; BMI 29.0
--- OUTSIDE RECORDS SUMMARY | 2025-05-27 06:07 | XMS RPT_ITS | CCD ---
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 Charlene Sands Attending Provider [phone] Care Physician, No Primary Primary Care Provider Unavailable Care Physician, No Primary Referring Provider Un available CEYC Denney NP Attending Provider [phone] PHYSICIAN, NONE Primary Care Physician Unavailab le Care Physician, No Primary Primary Care Provider Unavailable Care Physician, No Primary Referring Provider Un available Dr. Shaila Ruelas Attending Provider [phone] BRANDT FREEMAN MD Attending Unavail able PHYSICIAN, NONE Primary Care Unavailable AA NO PCP, NO PCP Primary Care Unavailable CENE BOARD LAYERSAL Attending Unavailable CENE BOARD LAYER, SAL Elliott Admitting Unavailable AA NO PCP, NO PCP Primary Care Unavailable TYREE BUTLER CRNA Consulting Unavailable CAMPITELLI DPM, ARIK Javier Attending Unava ilable CAMPITELLI DPM, ARIK Javier Admitting Unava ilable YESI BASHIR DO Consulting Unavailable CHARLENE SANDS Primary Care Unavailabl e MI COPELAND Attending Unavailabl e CHARLENE SANDS Primary Care Unavailabl e CHARLENE SANDS Referring Unavailabl e JAIME DE GUZMAN Attending Unavailable CHARLENE SANDS Primary Care Unavailabl e CHARLENE SANDS Referring Unavailabl e JAIME DE GUZMAN Attending Unavailable CHARLENE SANDS Primary Care Unavailabl e CHARLENE SANDS Referring Unavailabl e MARIANN RAMIREZ Attending Unavailable CHARLENE SANDS Primary Care Unavailabl e CHARLENE SANDS Referring Unavailabl e CHARLENE SANDS Attending Unavailabl e CHARLENE SANDS Primary Care Unavailabl e MARCANTHONY, CHARLENE E Referring Unavailabl e GIDEON PEREZ Attending Unavailable MARCERWIN, CHARLENE E Primary Care Unavailabl e ALISA ADAM Attending Unavailable MARCANTHANDRES, CHARLENE E Referring Unavailabl e MARCANTHONY, CHARLENE E Primary Care Unavailabl e MARCANTHONY, CHARLENE E Referring Unavailabl e SIMRAN MCNEAL Attending Unavailable MARCANTHANDRES, CHARLENE E Primary Care Unavailabl e DE GUZMAN, JAIME Attending Unavailable MARCANTHANDRES, CHARLENE E Referring Unavailabl e DE GUZMANJAIME Attending Unavailable MARCANTHONY, CHARLENE E Primary Care Unavailabl e MARCANTHONY, CHARLENE E Referring Unavailabl e MARCANTHONY, CHARLENE E Primary Care Unavailabl e MARCANTHANDRES, CHARLENE E Referring Unavailabl e GIDEON PEREZ Attending Unavailable DE GUZMAN, JAIME Attending Unavailable MARCANTHANDRES, CHARLENE E Primary Care Unavailabl e MARCANTHONY, CHARLENE E Referring Unavailabl e MARCANTHONY, CHARLENE E Primary Care Unavailabl e MARCANTHANDRES, CHARLENE E Referring Unavailabl e MARCANTHANDRES, CHARLENE E Attending Unavailabl e MARCANTHANDRES, CHARLENE E Referring Unavailabl e TADEO BENÍTEZ Attending Unavailable NO PRIMARY CAREMD Primary Care Unavailable CHARLENE SANDS Referring Unavailabl e RAFAT HAMMER Attending Unavailable NO PRIMARY CAREMD Primary Care Unavailable Care Physician, No Primary Primary Care Provider Unavailable Care Physician, No Primary Referring Provider Un available Pollo VARGAS, Dr. Chang Attending Provider Dr. London Reece MD Attending Provider Shaila Ruelas Referring Unavailabl e Vande Velde, Shaila Attending Unavailabl e Care Physician, No Primary Primary Care Unava ilable Jayson VelShaila leyva Referring Unavailabl e Vande Velde, Shaila Attending Unavailabl e Care Physician, No Primary Primary Care Unava ilable Pipee VelShaila leyva Attending Unavailabl e Vande Velgordon, Shaila Referring Unavailabl e Care Physician, No Primary Primary Care Unava ilable Care Physician, No Primary Primary Care Unava ilable Fatimah Gibson Attending Unavailable Fatimah Gibson Referring Unavailable Charlene Sands Admitting Unavailable hCarlene Sands Attending Unavailable Care Physician, No Primary Primary Care Unava ilable Charlene Sands Referring Unavailable Charlene Sands Attending Unavailable Care Physician, No Primary Primary Care Unava ilable Charlene Sands Referring Unavailable Charlene Sands Attending Unavailable Care Physician, No Primary Primary Care Unava ilable Vande Velde, Shaila Attending Unavailabl e Vande Velde, Shaila Referring Unavailabl e Care Physician, No Primary Primary Care Unava ilable Vande Velde, Shaila Attending Unavailabl e Vande Velde, Shaila Consulting Unavailabl e Vande Velde, Shaila Referring Unavailabl e Vande Velde, Shaila Admitting Unavailabl e Care Physician, No Primary Primary Care Unava ilable Vande Velgordon, Shaila Attending Unavailabl e Care Physician, No Primary Referring Unava ilable Care Physician, No Primary Primary Care Unava ilable Charlene Sands Attending Unavailable Care Physician, No Primary Primary Care Unava ilable Care Physician, No Primary Referring Unava ilable Fatimah Gibson Attending Unavailable Care Physician, No Primary Primary Care Unava ilable Care Physician, No Primary Referring Unava ilable Charlene Sands Attending Unavailable Care Physician, No Primary Primary Care Unava ilable Care Physician, No Primary Referring Unava ilable Charlene Sands Attending Unavailable Care Physician, No Primary Primary Care Unava ilable Care Physician, No Primary Referring Unava ilable Charlene Sands Attending Unavailable Care Physician, No Primary Primary Care Unava ilable Care Physician, No Primary Referring Unava ilable Fatimah Gibson Attending Unavailable Care Physician, No Primary Primary Care Unava ilable Fatimah Gibson Consulting Unavailable Fatimah Gibson Referring Unavailable Jayson Velgordon, Shaila Admitting Unavailabl e Vande Velde, Shaila Consulting Unavailabl e Vande Velde, Shaila Referring Unavailabl e Care Physician, No Primary Primary Care Unava ilable Damaris Lancaster Attending Unavailable Fatimah Gibson Attending Unavailable Charlene Sands Attending Unavailable Care Physician, No Primary Primary Care Unava ilable Care Physician, No Primary Referring Unava ilable Care Physician, No Primary Primary Care Unava ilable Care Physician, No Primary Referring Unava ilable Jumana LAB ENGINEER, [place] Attending Unavailable Vande Velde, Shaila Attending Unavailabl e Vande Velde, Shaila Referring Unavailabl e Vande Velde, Shaila Admitting Unavailabl e Care Physician, No Primary Primary Care Unava ilable Shaila Ruelas Attending Unavailabl e Care Physician, No Primary Primary Care Unava ilable Care Physician, No Primary Referring Unava ilable Nayely Jensen Attending Unavailable Care Physician, No Primary Primary Care Unava ilable Nayely Jensen Referring Unavailable Charlene Sands Attending Unavailable Care Physician, No Primary Primary Care Unava ilable Care Physician, No Primary Referring Unava ilable Shaila Ruelas Attending Unavailabl e Care Physician, No Primary Primary Care Unava ilable Care Physician, No Primary Referring Unava ilable Pipee Shaila Gupta Attending Unavailabl e Care Physician, No Primary Primary Care Unava ilable Care Physician, No Primary Referring Unava ilable Pipee Shaila Gupta Attending Unavailabl e Care Physician, No Primary Primary Care Unava ilable Care Physician, No Primary Referring Unava ilable Nessa Sanon Attending Unavailable Care Physician, No Primary Primary Care Unava ilable Care Physician, No Primary Referring Unava ilable Shaila Ruelas Attending Unavailabl e Care Physician, No Primary Primary Care Unava ilable Care Physician, No Primary Referring Unava ilable Jumana LAB ENGINEER, [place] Attending Unavailable Care Physician, No Primary Primary Care Unava ilable [place] LAB ENGINEER, [place] Referring Unavailable Care Physician, No Primary Primary Care Unava ilable [place] LAB ENGINEER, [place] Attending Unavailable Jumana LAB ENGINEER, [place] Referring Unavailable Care Physician, No Primary Primary Care Unava ilable Care Physician, No Primary Referring Unava ilable Robert LAB ENGINEERAurelia Attending Unavailable Charlene Sands Attending Unavailable Care Physician, No Primary Primary Care Unava ilable Care Physician, No Primary Referring Unava ilable Shaila Ruelas Referring Unavailabl e Shaila Ruelas Attending Unavailabl e Pipee VelShaila leyva Consulting Unavailabl e Care Physician, No Primary Primary Care Unava ilable Charlene Sands Attending Unavailable Care Physician, No Primary Primary Care Unava ilable Care Physician, No Primary Referring Unava ilable Care Physician, No Primary Primary Care Unava ilable London Reece Attending Unavailable Care Physician, No Primary Referring Unava ilable Care Physician, No Primary Primary Care Unava ilable Wanek, London A Referring Unavailable London Reece Attending Unavailable Allergies Allergy Classification Reported Allergen(s) Allergy Type Date of Onset Reaction(s) Facility (2 sources) HYDROmorphone; Translations: [hydromorphone] Drug Allergy 06-22-2024 [facility] Comment on above: Pt becomes itchy and has nausea with Dilaudid Medications Current Medications Medication Drug Class(es) Dates Sig (Normalized) Sig (Original) docusate sodium 100 mg oral tablet (1 source) Start: 04-16-2015 take 1 dose by mouth twice daily Colace Dose : 100 mg =, Oral, BID, 0 Refill(s) Start Date: 04/16/15 Status: Ordered Iron-150 (1 source) Start: 04-16-2015 take 1 tablet by mouth once daily Iron-150 Dose = 1 tab(s), Oral, qDay, 0 Refill(s) Start Date: 04/16/15 Status: Ordered levonorgestrel 0.403268 mg/hr intrauterine system (1 source) Progestin, Progestin-containi ng Intrauterine Device Start: 01-26-2025 Levonorgestrel (Liletta) 20.4 mcg/24 hr (8 yrs) 52 mg intrauterine device Active 1 NMA INTRA-UTER ONCE January 26, 2025 1:00am as a single dose PNV-Total (1 source) Start: 09-16-2014 take 1 capsule by mouth once daily PNV-Total Dose = 1 cap(s), Oral, qDay, 0 Refill(s) Start Date: 09/16/14 Status: Ordered Completed/Discontinued Medications Medication Drug Class(es) Dates Sig (Normalized) Sig (Original) acetaminophen 325 mg / oxyCODONE hydrochloride 5 mg oral tablet (3 sources) Opioid Agonist Start: 12-01-2024 End: 12-15-2024 take 1-2 tablets by mouth every four hours as needed for pain Oxycodone-Acetamino phen (Percocet) 5-325 mg tablet Discontinued 1 {tbl} PO Q4H as needed for pain 30 December 01, 2024 December 15, 2024 12:55pm 1-2 tabs q 4 hrs as needed for pain Start: 04-17-2015 take 1 tablet by perri th every six hours as needed for pain acetaminophen-OXYcodone 325-5 mg tablet Dose = 1 tab(s), Oral, q6hr, PRN Pain, # 12 tab(s), 0 Refill(s) Start Date: 04/17/15 Status: Ordered Start: 04-16-2015 take 1 tablet by perri th every four hours as needed for pain Percocet 325/5 oral tablet Dose = 1 tab(s), Oral, q4h, PRN for pain, 0 Refill(s) Start Date: 04/16/15 Status: Ordered [id number] 200 actuat albuterol 0.09 mg/actuat metered dose inhaler (4 sources) beta2-Adrenergic Agonist Start: 01-03-2018 End: 03-15-2021 Albuterol Sulfate 6.7 GM HFA aerosol inhaler Discontinued 6.7 g IH EVERY 2 HOURS NEEDED as needed for Wheezing January 04, 2018 12:27am March 15, 2021 2:19pm cephalexin 500 mg oral capsule (4 sources) Cephalosporin Antibacterial Start: 07-22-2020 End: 03-15-2021 take 1 capsule by mouth every six hours Cephalexin 500 MG capsule Discontinued 500 mg PO EVERY 6 HOURS July 22, 2020 12:00am March 15, 2021 2:19pm cyclobenzaprine hydrochloride 10 mg oral tablet (3 sources) Muscle Relaxant Start: 11-26-2022 End: 12-12-2022 take 1 tablet by mouth twice daily as needed for muscle spasms Cyclobenzaprine 10 mg tablet Discontinued 10 mg PO TWICE A DAY as needed for muscle spasm November 26, 2022 1:00am December 12, 2022 9:56am docusate sodium 50 mg / sennosides, [facility] 8.6 mg oral tablet (1 source) Start: 12-04-2024 End: 12-15-2024 Sennosides-Docusate Sodium (Stimulant Laxative Plus) 8.6-50 mg Tablet Discontinued 1 - 2 {tbl} PO DAILY December 04, 2024 1:00am December 15, 2024 12:56pm Levonorgestrel-Ethin yl Estrad (20 sources) Progestin, Estrogen, Progestin-containing Intrauterine Device Start: 07-28-2023 End: 05-18-2024 take 1 tablet by mouth once daily Levonorgestrel-Ethi nyl Estrad (Aviane) 0.1-20 mg-mcg tablet Discontinued 1 {tbl} PO daily July 28, 2023 1:11pm May 18, 2024 9:20am Start: 06-12-2023 End: 07-28-2023 take 1 tablet by mouth once daily Levonorgestrel-Ethinyl Estrad (Aviane) 0.1-20 mg-mcg tablet Discontinued 1 {tbl} PO daily June 12, 2023 12:00am July 28, 2023 1:12pm Start: 06-11-2022 take 1 tablet by perri th once daily Levonorgestrel-Ethinyl Estrad (Aviane) 0.1-20 mg-mcg tablet Active 1 TABLET PO daily June 11, 2022 10:08am Start: 06-11-2022 take 1 tablet by perri th once daily Levonorgestrel-Ethinyl Estrad (Aviane) 0.1-20 mg-mcg tablet Active 1 TABLET PO daily June 11, 2022 11:08am Start: 04-05-2022 End: 06-11-2022 take 1 tablet by mouth once daily Levonorgestrel-Ethinyl Estrad (Aviane) 0.1-20 mg-mcg tablet Discontinued 1 {tbl} PO daily April 05, 2022 1:05pm June 11, 2022 11:08am Start: 04-05-2022 End: 06-11-2022 take 1 tablet by mouth once daily Levonorgestrel-Ethinyl Estrad (Aviane) 0.1-20 mg-mcg tablet Discontinued 1 TABLET PO daily April 05, 2022 12:05pm June 11, 2022 10:08am Start: 04-05-2022 End: 06-11-2022 take 1 tablet by mouth once daily Levonorgestrel-Ethinyl Estrad (Aviane) 0.1-20 mg-mcg tablet Discontinued 1 TABLET PO daily April 05, 2022 1:05pm June 11, 2022 11:08am Start: 04-05-2022 End: 04-05-2022 take 1 tablet by mouth once daily Levonorgestrel-Ethinyl Estrad (Aviane) 0.1-20 mg-mcg tablet Discontinued 1 {tbl} PO daily April 05, 2022 12:12pm April 05, 2022 1:05pm Start: 04-05-2022 End: 04-05-2022 take 1 tablet by mouth once daily Levonorgestrel-Ethinyl Estrad (Aviane) 0.1-20 mg-mcg tablet Discontinued 1 TABLET PO daily April 05, 2022 11:12am April 05, 2022 12:05pm Start: 04-05-2022 End: 04-05-2022 take 1 tablet by mouth once daily Levonorgestrel-Ethinyl Estrad (Aviane) 0.1-20 mg-mcg tablet Discontinued 1 TABLET PO daily April 05, 2022 12:12pm April 05, 2022 1:05pm Start: 03-15-2021 End: 04-05-2022 take 1 tablet by mouth once daily Levonorgestrel-Ethinyl Estrad (Aviane) 0.1-20 mg-mcg tablet Discontinued 1 {tbl} PO daily March 15, 2021 3:03pm April 05, 2022 12:12pm Start: 03-15-2021 End: 04-05-2022 take 1 tablet by mouth once daily Levonorgestrel-Ethinyl Estrad (Aviane) 0.1-20 mg-mcg tablet Discontinued 1 TABLET PO daily March 15, 2021 2:03pm April 05, 2022 11:12am Start: 03-15-2021 End: 04-05-2022 take 1 tablet by mouth once daily Levonorgestrel-Ethinyl Estrad (Aviane) 0.1-20 mg-mcg tablet Discontinued 1 TABLET PO daily March 15, 2021 3:03pm April 05, 2022 12:12pm Start: 03-15-2021 End: 03-15-2021 take 1 tablet by mouth once daily Levonorgestrel-Ethinyl Estrad (Aviane) 0.1-20 mg-mcg tablet Discontinued 1 {tbl} PO daily March 15, 2021 12:00am March 15, 2021 3:03pm Start: 03-15-2021 End: 03-15-2021 take 1 tablet by mouth once daily Levonorgestrel-Ethinyl Estrad (Aviane) 0.1-20 mg-mcg tablet Discontinued 1 TABLET PO daily March 14, 2021 11:00pm March 15, 2021 2:03pm Start: 03-15-2021 End: 03-15-2021 take 1 tablet by mouth once daily Levonorgestrel-Ethinyl Estrad (Aviane) 0.1-20 mg-mcg tablet Discontinued 1 TABLET PO daily March 15, 2021 12:00am March 15, 2021 3:03pm hydrocortisone acetate 10 mg/ml / pramoxine hydrochloride 10 mg/ml rectal foam (1 source) Corticosteroid Start: 07-19-2024 End: 12-01-2024 Hydrocortisone-Pramoxine (Proctofoam Hc) 1-1 % foam Discontinued 1 NMA RC 3 to 4 times per day as needed for hemorrhoids July 19, 2024 12:00am December 01, 2024 7:51pm hydrOXYzine pamoate 50 mg oral capsule (4 sources) Antihistamine Start: 11-16-2024 End: 12-15-2024 take 1 capsule by mouth at bedtime Hydroxyzine Pamoate 50 mg capsule Discontinued 50 mg PO AT BEDTIME November 16, 2024 1:00am December 15, 2024 12:55pm Start: 10-10-2022 End: 12-12-2022 take 1 capsule by mouth twice daily as needed for anxiety Hydroxyzine Pamoate (Vistaril) 25 mg capsule Discontinued 25 mg PO TWICE A DAY as needed for anxiety October 10, 2022 1:00am December 12, 2022 10:12am ibuprofen 800 mg oral tablet (2 sources) Nonsteroidal Anti-inflammatory Drug Start: 12-01-2024 End: 12-15-2024 take 1 tablet by mouth every eight hours as needed for pain Ibuprofen 800 mg tablet Discontinued 800 mg PO Q8H as needed for pain December 01, 2024 1:00am December 15, 2024 12:55pm Start: 04-16-2015 take 1 dose by mouth every eight hours Motrin Dose : 800 mg =, Oral, q8h, 0 Refill(s) Start Date: 04/16/15 Status: Ordered naproxen 500 mg oral tablet (3 sources) Nonsteroidal Anti-inflammatory Drug Start: 11-26-2022 End: 12-12-2022 take 1 tablet by mouth twice daily as needed for pain Naproxen (Naprosyn) 500 mg tablet Discontinued 500 mg PO TWICE A DAY as needed for pain November 26, 2022 1:00am December 12, 2022 9:56am nitrofurantoin, macrocrystals 25 mg / nitrofurantoin, monohydrate 75 mg oral capsule (1 source) Nitrofuran Antibacterial Start: 12-15-2024 End: 12-22-2024 take 1 capsule by mouth twice daily at mealtime Nitrofurantoin Monohyd/M-Cryst (Macrobid) 100 mg capsule Discontinued 100 mg PO TWICE A DAY 13 06December 15, 2024 1:00am December 21, 2024 1:00am December 22, 2024 1:18am must administer with a meal/food ondansetron 4 mg oral tablet (1 source) Serotonin-3 Receptor Antagonist Start: 05-24-2024 End: 12-01-2024 take 1 tablet by mouth every eight hours as needed for nausea and vomiting Ondansetron Hcl 4 mg tablet Discontinued 4 mg PO Q8H as needed for nausea and vomiting May 24, 2024 12:00am December 01, 2024 7:51pm Pnv No.[id number]-Dha- Epa-Fish 400 mcg-35 mg- 25 mg-5 mg tablet,chewable (1 source) Start: 05-18-2024 End: 01-26-2025 Pnv No.[id number]-Dha- Epa-Fish 400 mcg-35 mg- 25 mg-5 mg tablet,chewable Discontinued 1 {tbl} PO May 18, 2024 12:00am January 26, 2025 2:18pm predniSONE 20 mg oral tablet (6 sources) Start: 03-04-2023 End: 07-28-2023 take 1 tablet by mouth twice daily Prednisone 20 mg tablet Discontinued 20 mg PO TWICE A DAY March 04, 2023 12:00am July 28, 2023 12:52pm Start: 01-03-2018 End: 03-15-2021 take 2 tablets by mouth once daily at mealtime Prednisone 20 MG tablet Discontinued 40 mg PO DAILY January 03, 2018 1:00am March 15, 2021 2:19pm With food Start: 01-03-2018 End: 03-15-2021 take 40 mg by mouth once daily at mealtime Prednisone Discontinued 40 MG PO DAILY January 03, 2018 1:00am March 15, 2021 2:19pm With food Problems Active Problems Problem Classification Problem Date Documented Date Episodic/Chronic Abdominal pain (6 sources) Pain in pelvis; Translations: [Pelvic and perineal pain] Onset: 11-25-2022 12-09-2022 Episodic Comment on above: [place] Bacterial infection; unspecified site (1 source) Bacteria present; Translations: [Streptococcus, group B, as the cause of diseases classified elsewhere] 12-15-2024 Episodic Comment on above: FYI resistant to cli nda Cardiac and circulatory congenital anomalies (3 sources) Single umbilical artery; 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: 11-09-2024 01-12-2025 Chronic Comment on above: twin A Menstrual disorders (5 sources) Amenorrhea; Translations: [Amenorrhea, unspecified] Onset: 11-25-2022 12-12-2022 Chronic Miscellaneous mental health disorders (3 sources) Somatoform pain disorder; 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-12-2022 Chronic Other acquired deformities (2 sources) Unspecified acquired deformity of left lower leg; Translations: [UNS ACQUIRED DEFORMITY LT LOWER LEG] Onset: 02-18-2023 Episodic Other complications of (1 source) Multigravida of advanced maternal age; Translations: [Supervision of elderly multigravida, unspecified trimester] 05-24-2024 Episodic Other complications of (1 source) High risk ; Translations: [Supervision of high risk , unspecified, unspecified trimester] 11-09-2024 Episodic Comment on above: PRR , POORNIMA 5, boys PC Rip Cavazos Rensselear Wero Other complications of (1 source) Hemorrhoids in ; Translations: [Hemorrhoids in , unspecified trimester] 08-09-2024 Episodic Other complications of (1 source) H/O: blood transfusion; Translations: [Supervision of with other poor reproductive or obstetric history, unspecified trimester] 05-18-2024 Episodic Comment on above: after Other female genital disorders (1 source) Uterine contractions present; Translations: [Other specified conditions associated with female genital organs and menstrual cycle] 11-09-2024 Episodic Other lower respiratory disease (2 sources) Cough; Translations: [Cough] 03-04-2023 Episodic Other lower respiratory disease (2 sources) Dyspnea; Translations: [Dyspnea, unspecified] 03-04-2023 Episodic Other upper respiratory disease (1 source) Pain in throat; Translations: [Pain in throat] Onset: 02-27-2023 Episodic Residual codes; unclassified (5 sources) Abnormal cytology findings; Translations: [Low grade squamous intraepithelial lesion (LGSIL)] 06-19-2022 Episodic Comment on above: colposcopy 05/2021:n eg. 05/2022:neg pap with positive HPV; rpt pap 2022 negative Residual codes; unclassified (1 source) Edema; Translations: [Edema, unspecified] 01-12-2025 Episodic Spondylosis; intervertebral disc disorders; other back problems (3 sources) Low back pain; Translations: [Low back pain] 12-04-2022 Episodic Unclassified (1 source) Low back pain, unspecified; Translations: [Low back pain, unspecified] Onset: 11-25-2022 Unclassified (1 source) Other specified diseases and conditions complicating puerperium; Translations: [Other specified diseases and conditions complicating puerperium] Onset: 12-28-2024 Unclassified (1 source) Other specified diseases and conditions complicating ; Translations: [Other specified diseases and conditions complicating ] Onset: 11-29-2024 Past or Other Problems Problem Classification Problem Date Documented Date Episodic/Chronic Anxiety disorders (5 sources) Anxiety; Translations: [Anxiety disorder, unspecified] Resolved: 05-01-2024 Chronic Comment on above: vistaril Contraceptive and procreative management (7 sources) Patient encounter status; Translations: [Encounter for contraceptive management, unspecified] Onset: 11-09-2024 01-18-2025 Episodic Comment on above: No PA needed per [id number] ID#[id number] 01/18/25 plan BS at csection, 09/24/24 pt has now does not want to have BS Genitourinary symptoms and ill-defined conditions (1 source) Dysuria; Translations: [Dysuria] Onset: 01-05-2025 Episodic Hemorrhoids (5 sources) External hemorrhoids; Translations: [Residual hemorrhoidal skin tags] Onset: 11-09-2024 05-13-2025 Episodic Comment on above: s/p draining of hemo rrhoid in GS. pt to follow up post for more surgery. Other complications of (2 sources) Supervision of elderly multigravida, unspecified trimester; Translations: [Supervision of elderly multigravida, unspecified trimester] Onset: 11-09-2024 Episodic Other complications of (2 sources) Supervision of with other poor reproductive or obstetric history, unspecified trimester; Translations: [Supervision of with other poor reproductive or obstetric history, unspecified trimester] Onset: 11-09-2024 Episodic Other complications of (2 sources) Supervision of high risk , unspecified, unspecified trimester; Translations: [Supervision of high risk , unspecified, unspecified trimester] Onset: 12-13-2024 Episodic Other complications of (2 sources) Hemorrhoids in , second trimester; Translations: [Hemorrhoids in , second trimester] Onset: 11-09-2024 Episodic Other complications of (1 source) Supervision of elderly multigravida, third trimester; Translations: [Supervision of elderly multigravida, third trimester] Onset: 12-13-2024 Episodic Other complications of (1 source) Other diseases of the blood and blood-forming organs and certain disorders involving the immune mechanism complicating , unspecified trimester; Translations: [Other diseases of the blood and blood-forming organs and certain disorders involving the immune mechanism complicating , unspecified trimester] Onset: 12-10-2024 Episodic Other complications of (1 source) Hemorrhoids in , unspecified trimester; Translations: [Hemorrhoids in , unspecified trimester] Onset: 10-12-2024 Episodic Other complications of (1 source) Supervision of elderly multigravida, first trimester; Translations: [Supervision of elderly multigravida, first trimester] Onset: 06-28-2024 Episodic Other female genital disorders (1 source) Other specified conditions associated with female genital organs and menstrual cycle; Translations: [Other specified conditions associated with female genital organs and menstrual cycle] Onset: 11-29-2024 Episodic Other and delivery including normal (7 sources) ; Translations: [Encounter for supervision of normal , unspecified, unspecified trimester] Onset: 06-16-2024 11-29-2024 Episodic Comment on above: low risk NIPT, decli javan carrier testing. anatomy reveiwed echo nl, growt h q 4 weeks, weekly bpp at 32, deliver 37 Other screening for suspected conditions (not mental disorders or infectious disease) (1 source) Encounter for screening for malignant neoplasm of cervix; Translations: [Encounter for screening for malignant neoplasm of cervix] Onset: 01-25-2025 Episodic Residual codes; unclassified (1 source) Edema, unspecified; Translations: [Edema, unspecified] Onset: 12-28-2024 Episodic Residual codes; unclassified (2 sources) History of uterine scar from previous surgery; Translations: [History of uterine scar from previous surgery] Onset: 11-09-2024 Episodic Residual codes; unclassified (1 source) 35 weeks gestation of ; Translations: [35 weeks gestation of ] Onset: 12-13-2024 Episodic Residual codes; unclassified (1 source) 32 weeks gestation of ; Translations: [32 weeks gestation of ] Onset: 11-09-2024 Episodic Residual codes; unclassified (2 sources) 30 weeks gestation of ; Translations: [30 weeks gestation of ] Onset: 10-26-2024 Episodic Residual codes; unclassified (1 source) 20 weeks gestation of ; Translations: [20 weeks gestation of ] Onset: 08-17-2024 Episodic Unclassified (1 source) Low back pain, unspecified; Translations: [Low back pain, unspecified] Onset: 11-25-2022 Results Test Name Value Interpretation Reference Range Facility Surgery Visit Reporton 05-13 Surgery Visit Report [facility] [address] [place] [address] OFFICE VISIT Date of Service: 05/13/25 MR#: [id number] Acct: [id number] Name: SUSIE LOZANO Rep #: [id number] : 1985 Provider: Dr. London dobbins MD Age/Sex: 39/F Location: [facility] Status: Signed Intake Vital Signs 01/26/25 13:08 05/13/25 13:36 Height 5 ft 7 in 5 ft 7 in Weight: 193 lb 8 oz 175 lb BMI 30.3 27.3 BP 119/81 H 118/77 Blood Pressure Location Rt brachial Position Sitting Respiration 17 Pulse 86 Pulse Source Monitor Pulse Oximetry (%) 99 Oxygen Delivery Method room air Intake Visit Reasons: HEMORRHOIDS- SELF REFERRED Chief Complaint: hemorroids self referred Is patient in pain?: Yes (chronic pain with hemorrhoids) Allergies No Known Allergies Allergy (Verified 05/13/25 13:37) Medications ???Medication ???Instructions ???Recorded ???Confirmed ???Type levonorgestrel 20.4 mcg/24 hr (up 1 device intrauterine ONCE 05/13/25 History to 8 yrs) 52 mg intrauterine device (Liletta) PFSH Medical History Contraceptive management History of blood transfusion hemorrhage Hemorrhoids during History of Amenorrhea Psychosomatic pain Pelvic pain Anxiety LGSIL (low grade squamous intraepithelial dysplasia) Surgical History H/O breast augmentation H/O foot surgery History of tonsillectomy H/O: Social History adopted: No household members: spouse and children number of children: 3 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 exposures/hazards: No pets and animals: Yes pets and animals: dog(s) history of recent travel: No sexually active: Yes Smoking Status: Never smoker alcohol intake: never substance use type: does not use well-balanced diet: daily or most days caffeine: No eating out: rarely or never during the past year weight has: remained stable what type of physical activity do you participate in: walking and other details: volley ball frequency: 1-2 times per week duration: > 90 minutes/day velia/methodist: Pentecostalism seatbelt use: always do you feel safe at home: Yes 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 Sounds as though she has been having issues with her hemorrhoids for several years. She states that she recently delivered twins about 5 months ago and her hemorrhoids have been quite a bit of a problem since. She states that she frequently has swelling and also has periodic thrombosed hemorrhoids that seem to open and draining on their own. She has tried cohg-rwg-woibxva as well as prescription medications without any significant improvement. She presents today to discuss hemorrhoid surgery options. She denies any issues with constipation. She has definitely noticed that her hemorrhoids have worsened during . She states that previously she did weight lifting/bodybuilding which certainly may have contributed as well. Pain and discomfort are her biggest symptoms ROS General General: No weight change, appetite, fatigue, colon cancer, breast cancer or weakness HEENT HEENT: No difficulty swallowing, eye injury, eye surgery, swollen glands or hoarseness Endo Endocrine: No thyroid disease, diabetes mellitus, thyroid cancer, Hair loss, heat intolerance or cold intolerance Skin Skin: No rash or changing moles Musc Musculoskeletal: No back problems, arthritis, rheumatoid arthritis, gout or joint pain Cardio Cardiovascular: No murmur, pacemaker, heart disease, atrial fibrillation, high blood pressure, heart attack, heart stent, palpitations, shortness of breath with exertion or chest pain Psych Psychiatric: No depression, anxiety or hearing voices Resp Respiratory: No shortness of breath, No sleep apnea, No cough, No COPD, No asthma, No emphysema and No wheezing Gastro Gastrointestinal: No abdominal pain, No nausea or vomiting, No diarrhea, No constipation, No blood in stool, No acid reflux, Yes hemorrhoids, No ulcers, No gallbladder problem and No black,tarry stools Tyler Hematologic: No blood thinners, No blood disorders, No bleeding, No anemia and No blood clots Neuro Neurologic: No system reviewed and no additional complaints, except as documented, No as per HPI, No abnormal gait, No abnormal hearing, No abnormal movements, No abnormal speech, No behavioral changes, No burning sensations, No confusion, No convulsions, No disequili (more content not included)... Normal [facility] - Chemistry and C hemistry - challengeOrdered By: Charlene Sands on 01-26-2025 HCG ( test) Ql (U) Negative [facility] Public Address Announcer Office Visit Reporton 01-26-2025 Public Address Announcer Office Visit Report [facility] [address], [address] [place] [address] OFFICE VISIT Date of Service: 01/26/25 MR#: [id number] Acct: [id number] Name: SUSIE LOZANO Rep #: [id number] : 1985 Provider: Dr. Charlene slade MD Age/Sex: 39/F Location: [facility] Status: Signed Intake Vital Signs 01/12/25 11:17 01/26/25 13:08 Height 5 ft 7 in 5 ft 7 in Weight: 193 lb 193 lb 8 oz BMI 30.2 30.3 BP 125/73 H 119/81 H Intake Visit Reasons: IUD INSERTION Onion Tier Required: No Is patient in pain?: No Allergies No Known Allergies Allergy (Verified 01/26/25 13:11) Medications ???Medication ???Instructions ???Recorded ???Confirmed ???Type levonorgestrel 20.4 mcg/24 hr (up 1 device intrauterine ONCE 01/26/25 History to 8 yrs) 52 mg intrauterine device (Liletta) Post menopausal: No Patient : No : No PFSH PFSH Medical History Contraceptive management History of blood transfusion hemorrhage Hemorrhoids during History of Amenorrhea Psychosomatic pain Pelvic pain Anxiety LGSIL (low grade squamous intraepithelial dysplasia) Surgical History H/O breast augmentation H/O foot surgery History of tonsillectomy H/O: Social History adopted: No household members: spouse and children number of children: 3 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 exposures/hazards: No pets and animals: Yes pets and animals: dog(s) history of recent travel: No sexually active: Yes Smoking Status: Never smoker alcohol intake: never substance use type: does not use well-balanced diet: daily or most days caffeine: No eating out: rarely or never during the past year weight has: remained stable what type of physical activity do you participate in: walking and other details: Greysox ball frequency: 1-2 times per week duration: > 90 minutes/day velia/methodist: Pentecostalism seatbelt use: always do you feel safe at home: Yes 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 Date Name GA/Weeks Outcome Route Bth Weight Gen Labor Lgth Anesthesia Del Locatn Provider FOB Unknown 2011 Macy 7 lbs 13 oz [facility] Rip 9 lbs 1 oz [place] 10/13/18 [place] 39 live - full term 7#13oz Female spinal [place] 12/01/24 Antony and [place] (twins) 35 live - 7.11oz 7.3oz Male spinal [facility] Jayson Conteh Delivery Date: 10/13/18 Last Updated by: Bridget Glez rpt cs prior didn't go well Delivery Date: 12/01/24 Last Updated by: Francine Santizo RN 35 week delivery for active labor HPI IUD INSERTION Details: SUSIE LOZANO is a 39 year old who presents for IUD insertion. ROS Const Constitutional: Reports system reviewed and no additional complaints, except as documented : Reports system reviewed and no additional complaints, except as documented and as per HPI Exam Const General: cooperative, healthy appearing, comfortable and no acute distress External Female Exam: normal external appearance and normal appearance of the urethra Urethra: normal appearance of the urethra Speculum Exam - Vagina: normal appearance of the vagina and normal vaginal discharge Speculum Exam - Cervix: normal appearance of the cervix (strings seen 3-4 cm in length) Bimanual Exam- Vagina Uterus: normal bimanual exam Bimanual Exam- Adnexa, other: normal adnexae, adnexae mobile and no masses Office Procedures IUD Insertion IUD GC/Chlamydia:: not done Test: Yes Negative Consent Signed: Yes Time out checklist: patient, procedure, site marked/identified, positioning of patient, supplies available, allergies confirmed and team agrees on procedure IUD: Yes Liletta IUD inserted Details: Sign in Communication: Completed Sign out documentation: Completed The uterus sounded to 8.5 cm. After prepping the cervix with betadine and using sterile technique, the cervix was grasped with a single tooth tenaculum and the IUD was inserted without difficulty and the string was cut to 3cm from the external os of the cervix. All instruments were removed from the vagina and excellent hemostasis was noted. Procedure Summary: patient tolerated the procedure well without complication. Office Meds levonorgestrel 20.4 (more content not included)... Normal [facility] PAP IG HPV APTIMA 16/18,45on 01-17-2025 ADEQ Comment Normal . [facility] Comment on above: Order Comment: Speci men Comment: [id number] Specimen Comment: Source.............Cervix Specimen Comment: No. of containers..01 ThinPrep Vial Result Comment: Sati sfactory for evaluation. Endocervical and/or squamous metaplastic cells (endocervical component) are present. Performed By: #### L 7400.0280 #### [facility] [address] [place], [place], [id number] COMM . Normal . [facility] Comment on above: Order Comment: Speci men Comment: [id number] Specimen Comment: Source.............Cervix Specimen Comment: No. of containers..01 ThinPrep Vial Performed By: #### L 7400.0280 #### [facility] [address] [place], [place], [id number] COMMENT Comment Normal . [facility] Comment on above: Order Comment: Speci men Comment: [id number] Specimen Comment: Source.............Cervix Specimen Comment: No. of containers..01 ThinPrep Vial Result Comment: This liquid based ThinPrep(R) pap test was screened with the use of an image guided system. Performed By: #### L 7400.0280 #### [facility] [address] [place], [place], [id number] DIAG Comment Normal . [facility] Comment on above: Order Comment: Speci men Comment: [id number] Specimen Comment: Source.............Cervix Specimen Comment: No. of containers..01 ThinPrep Vial Result Comment: NEGA TIVE FOR INTRAEPITHELIAL LESION OR MALIGNANCY. Performed By: #### L 7400.0280 #### [facility] [address] [place], [place], [id number] HPV APTIMA, HR Negative Normal Negative [facility] Comment on above: Order Comment: Speci men Comment: [id number] Specimen Comment: Source.............Cervix Specimen Comment: No. of containers..01 ThinPrep Vial Result Comment: This nucleic acid amplification test detects fourteen high- risk HPV types (16,18,31,33,35,39,45,51,52,56,58,59,66,68) without differentiation. Performed By: #### L 7400.0280 #### [facility] [address] [place], [address] HPV Jory Rfx Comment Normal . [facility] Comment on above: Order Comment: Speci men Comment: [id number] Specimen Comment: Source.............Cervix Specimen Comment: No. of containers..01 ThinPrep Vial Result Comment: Crit eria not met, HPV Genotype not performed. Performed at: - [facility] [id number] Roll Changer: Key Mulligan MD, Phone: [phone] Performed at: =G - [facility] [address] [id number] Roll Changer: Key Mulligan MD, Phone: [phone] Performed By: #### L 7400.0280 #### [facility] [address] [place], [place], [address] PAPSMR Comment Normal . [facility] Comment on above: Order Comment: Speci men Comment: [id number] Specimen Comment: Source.............Cervix Specimen Comment: No. of containers..01 ThinPrep Vial Result Comment: The Pap smear is a screening test designed to aid in the detection of premalignant and malignant conditions of the uterine cervix. It is not a diagnostic procedure and should not be used as the sole means of detecting cervical cancer. Both false-positive and false-negative reports do occur. Performed By: #### L 7400.0280 #### [facility] [address] [place], [place], [address] PERFORM Comment Normal . [facility] Comment on above: Order Comment: Speci men Comment: [id number] Specimen Comment: Source.............Cervix Specimen Comment: No. of containers..01 ThinPrep Vial Result Comment: Domonique Liao Electrical Estimator (ASCP) Performed By: #### L 7400.0280 #### [facility] [address] [place], [place], [id number] Public Address Announcer Office Visit Reporton 01-12-2025 Public Address Announcer Office Visit Report [facility] [address], [address] [place] [address] OFFICE VISIT Date of Service: 01/12/25 MR#: [id number] Acct: [id number] Name: SUSIE LOZANO Rep #: [id number] : 1985 Provider: Dr. Charlene slade MD Age/Sex: 39/F Location: [facility] Status: Signed Intake Vital Signs 09/17/24 15:37 12/01/24 18:51 12/15/24 11:57 01/12/25 11:17 Height 5 ft 7 in 5 ft 7 in 5 ft 7 in 5 ft 7 in Weight: 193 lb BMI 30.2 BP 125/73 H Intake Visit Reasons: visit (obstetrics) Chief Complaint: 6w pp declines IUD Onion Tier Required: No Is patient in pain?: No Feel stressed/tense/nervous/anxi ous/difficulty sleeping: not at all Allergies No Known Allergies Allergy (Verified 01/12/25 11:19) Medications ???Medication ???Instructions ???Recorded ???Confirmed ???Type PNV 153-FA 400 mcg-om3 35 mg-dha 1 tab PO 05/18/24 01/12/25 History 25 mg-epa 5 mg-fish oil chew tablet : Yes PFS Medical History History of blood transfusion hemorrhage Hemorrhoids during History of Amenorrhea Psychosomatic pain Pelvic pain Anxiety LGSIL (low grade squamous intraepithelial dysplasia) Surgical History H/O breast augmentation H/O foot surgery History of tonsillectomy H/O: Social History adopted: No household members: spouse and children number of children: 3 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 exposures/hazards: No pets and animals: Yes pets and animals: dog(s) history of recent travel: No sexually active: Yes Smoking Status: Never smoker alcohol intake: never substance use type: does not use well-balanced diet: daily or most days caffeine: No eating out: rarely or never during the past year weight has: remained stable what type of physical activity do you participate in: walking and other details: volley ball frequency: 1-2 times per week duration: > 90 minutes/day velia/methodist: Pentecostalism seatbelt use: always do you feel safe at home: Yes 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 Date Name GA/Weeks Outcome Route Bth Weight Infant Gen Labor Lgth Anesthesia Del Locatn Provider FOB Unknown 2011 Macy 7 lbs 13 oz Female [facility] Unknown 2014 Rip 9 lbs 1 oz Male [place] 10/13/18 [place] 39 live - full term 7#13oz Female spinal [place] 12/01/24 Antony and River (twins) 35 live - 7.11oz 7.3oz Male spinal [facility] Jayson Conteh Delivery Date: 10/13/18 Last Updated by: Bridget de la fuente cs prior didn't go well Delivery Date: 12/01/24 Last Updated by: Francine Santizo RN 35 week delivery for active labor Depression Screen PHQ-2/9 PHQ-2 Over the last 2 weeks, how often have you been bothered by any of the following problems? 1. Little interest or pleasure in doing things: not at all 2. Feeling down, depressed, or hopeless: not at all Total score: 0 Post HPI Routine Follow-Up: Details: SUSIE LOZANO is a 39 year old who presents for her post visit. Infant Feeding: Breast Menses resumed: No [place] since delivery: Yes Emotional Support: Yes Last Pap:: 07/28/2023 ROS Const Reports system reviewed and no additional complaints, except as documented GI Reports system reviewed and no additional complaints, except as documented, Denies bloating, Denies constipation, Denies nausea and Denies vomiting Reports system reviewed and no additional complaints, except as documented, Denies abnormal vaginal bleeding, Denies pelvic pain, Denies sexual dysfunction, Denies urinary incontinence, Denies urinary hesitancy, Denies urinary urgency and Denies vaginal discharge Skin/Breast Reports system reviewed and no additional complaints, except as documented and Reports as per HPI Psych Reports as per HPI Exam Const General: cooperative, healthy appearing, comfortable and no acute distress HENMT Head: normal to inspection Neck Neck: normal visual inspection and no lymphadenopathy Thyroid: thyroid normal Chest Breast inspection: normal inspection of the breasts and normal inspection of the axillae Breast palpation: normal palpation of the breasts and normal palpation of the axillae Resp Effort Inspection: normal respiratory effort GI Inspection: normal to in (more content not included)... Normal [facility] Urine Cultureon 12-17-2024 U[facility] Mixed Gram Positive Organisms Carson Count 11,000-25,000 MIXC Mixed contaminants. Submit a new specimen if indicated. Normal [facility] Comment on above: Performed By: #### L 501.4405, L400.0001, L501.0900, L100.0500, L504.2610, L501.1105, L501.1400, L501.4100 #### [facility] [address] [place], [address] Public Address Announcer Office Visit Reporton 12-15-2024 Public Address Announcer Office Visit Report [facility] [address], [address] [place] [address] OFFICE VISIT Date of Service: 12/15/24 MR#: [id number] Acct: [id number] Name: SUSIE LOZANO Rep #: [id number] : 1985 Provider: CECY carreno Age/Sex: 39/F Location: [facility] Status: Signed Intake Vital Signs 09/14/24 12:29 09/17/24 15:37 12/01/24 18:51 12/13/24 14:03 12/15/24 11:49 12/15/24 11:57 Height 5 ft 7 in 5 ft 7 in 5 ft 7 in 5 ft 7 in 5 ft 7 in 5 ft 7 in Weight: 196 lb 2 oz BMI 30.7 BP 118/82 H Intake Visit Reasons: 2 wk RLTCS BS twins Chief Complaint: 2 Week incision check Onion Tier Required: No Is patient in pain?: No Allergies No Known Allergies Allergy (Verified 12/15/24 12:09) Medications ???Medication ???Instructions ???Recorded ???Confirmed ???Type PNV 153-FA 400 mcg-om3 35 mg-dha 1 tab PO 05/18/24 12/15/24 History 25 mg-epa 5 mg-fish oil chew tablet nitrofurantoin 100 mg PO BID 7 days #14 caps 12/15/24 12/15/24 Rx monohydrate/macrocrystals 100 mg capsule (Macrobid) Is last menstrual period known: No Post menopausal: No Patient : No : Yes PFSH Medical History History of blood transfusion hemorrhage Hemorrhoids during History of Amenorrhea Psychosomatic pain Pelvic pain Anxiety LGSIL (low grade squamous intraepithelial dysplasia) Surgical History H/O breast augmentation H/O foot surgery History of tonsillectomy H/O: Social History adopted: No household members: spouse and children number of children: 3 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 exposures/hazards: No pets and animals: Yes pets and animals: dog(s) history of recent travel: No sexually active: Yes Smoking Status: Never smoker alcohol intake: never substance use type: does not use well-balanced diet: daily or most days caffeine: No eating out: rarely or never during the past year weight has: remained stable what type of physical activity do you participate in: walking and other details: [place] ball frequency: 1-2 times per week duration: > 90 minutes/day velia/methodist: Pentecostalism seatbelt use: always do you feel safe at home: Yes 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 Doing well emotionally and physically but does note some discomfort with urination. Babies were in SCN for 10 days but doing very well now. She is /pumping both and getting 12 oz each time. History 6 Elective abortions Hx Para 3 Spontaneous abortions 2 Hx # Term Pregnancies Ectopic pregnancies Hx # Pregnancies Multiple births # of living children 5 Past Pregnancies Del. Date Name GA/Weeks Outcome Route Bth Weight Infant Gen Labor Lgth Anesthesia Del Locatn Provider FOB Unknown 2011 [place] 7 lbs 13 oz [facility] 2014 Rip 9 lbs 1 oz Male [place] 10/13/18 [place] 39 live - full term 7#13oz Female [place] 12/01[place]24 Antony and [place] (twins) 35 live - 7.11oz 7.3oz Male spinal [facility] Jayson Conteh Delivery Date: 10/13/18 Last Updated by: Bridget Glez rpt cs prior didn't go well Delivery Date: 12/01/24 Last Updated by: Francine Santizo, RN 35 week delivery for active labor Exam Const General: cooperative and no acute distress Orientation: oriented x3 GI Inspection: incision (well healed, nonerythematous) Palpation: soft and nontender Coding Level of Care Code No Charge Diagnoses Postop check Z09 Status post delivery Z98.891 Acute cystitis with hematuria N30.01 Urinary tract infection type: acute cystitis Hematuria presence: with hematuria Assessment and Plan Assessment and Plan (1) Postop check: (2) Status post delivery: Status: Acute (3) UTI (urinary tract infection): Qualifiers: Urinary tract infection type: acute cystitis Hematuria presence: with hematuria Qualified Code(s): N30.01 - Acute cystitis with hematuria Orders: Orders Culture, Urine Today R30.0 - Dysuria POC Urinalysis Dip (Clinic) Today R30.0 - Dysuria Medications: New nitrofurantoin monohyd/m-cryst 100 mg (Macrobid) must administer with a meal/food 100 mg PO BID 7 days 14 caps 0RF Plan routine pp care Rx macrobid, urine culture pending RTO 4 weeks 12/15/24 1228 Date (more content not included)... Normal [facility] /BMS[facility] Care [address] [place] [address] OFFICE VISIT Date of Service: 12/12/24 MR#: [id number] Acct: [id number] Name: SUSIE LOZANO Rep #: [id number] : 1985 Provider: Aurelia Jones NP Age/Sex: 39/F Location: [facility] [place] Status: Signed Intake Vital Signs 12/01/24 18:51 12/13/24 14:03 Height 5 ft 7 in 5 ft 7 in Intake Visit Reasons: Consult Chief Complaint: assessment, twins Accompanied by: Allergies No Known Allergies Allergy (Verified 12/01/24 18:51) : Yes PFSH PFS Medical History (Updated 12/09/24 @ 17:[address] 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 exposures/hazards: No pets and animals: Yes pets and animals: dog(s) history of recent travel: No sexually active: Yes Smoking Status: Never smoker alcohol intake: never substance use type: does not use well-balanced diet: daily or most days caffeine: No eating out: rarely or never during the past year weight has: remained stable what type of physical activity do you participate in: walking and other details: [place] ball frequency: 1-2 times per week duration: > 90 minutes/day velia/methodist: Pentecostalism seatbelt use: always do you feel safe at home: Yes 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 Date Name GA/Weeks Outcome Route Bth Weight Gen Labor Lgth Anesthesia Del Locatn Provider FOB Unknown 2011 Macy 7 lbs 13 [facility] Rip 9 lbs 1 oz [place] 10/13/18 Nicole 39 live - full term 7#13oz Female spinal [place] 12/01/24 Antony and River (twins) 35 live - Male sp inal [facility] Jayson Gupta Wero Delivery Date: 10/13/18 Last Updated by: Bridget Glez rpt cs prior didn't go well Delivery Date: 12/01/24 Last Updated by: Francine Santizo RN 35 week delivery for active labor HPI HPI HPI: SUSIE LOZANO, is a 39 F who presents to the office today for assessment, twins. History provided by the patient. ROS ROS Const Constitutional: Denies fever(s) or lethargy : Denies nipple discharge Skin Skin/Breast: Denies breast pain, breast skin changes or nipple discharge Details: feeding q2.5-3 hours, about half of feeds patient is putting babies to breast, pumping and supplementing, at this point she is pumping 4x per day and getting 10-14 oz per pumping session, minimal pain with pumping or feeding Exam Maternal Assessment Breast Assessment Bilateral Breasts: Full Nipple Assessment Bilateral Nipples: Everted Assessment Baby Feeding History Is your baby latching onto the breast: Yes Number of Breast Feedings in 24 hours: 4 Minutes per breast: First Breast: 10-20 Minutes per breast: Second Breast: 10-30 Supplements Supplement Type:: Expressed milk Frequency: q2.5-3 hours Amount: 30-70 ml Breast Pumping Type of Breast Pump: Medela Frequency: 4x daily Amount: 10-14 oz per pumping session Reason for supplements or pumping:: For supplement while babies are transitioning to exclusive breastfeedig Goals Breast Feeding Goals: Exclusive Exam Const General: comfortable and no acute distress Orientation: alert and oriented x3 Chest Breast inspection: normal inspection of the breasts Resp Effort Inspection: normal respiratory effort Skin General: no rashes or lesions noted Psych Appearance: grossly normal Mental Status: mental status grossly normal Affect: normal affect Assessment and Plan Assessment and Plan (1) Care and examination of lactating mother: Plan: Latch Score L - Latch Latch: Grasps breast, tongue down, lips flanged, rhymic sucking (2) A - Audible Swallowing Audible Swallowing: Spontaneous intermittent <24 hrs, spontaneous frequent >24 hrs (2) T - Type of Nipple Type of Nipple: Everted (after stimulation) (2) C - Comfort (Breast/Ni (more content not included)... Normal [facility] OB Triage Progress Noteon OB Triage Progress Note [facility] Medical Records Department [address] [place] [address] OB Triage Progress Note 12/07/24 2328 MR#: [id number] Acct: [id number] Name: SUSIE LOZANO Rep #: [id number] : 1985 39 From: Shaila Ruelas DO PCP: Care Physician,No Primary Status:DEP CLI Y DOS: Location: WPOUT Progress Notes Date of Service: 12/07/24 Progress Note: Florecita Lozano presented to [facility] 12/07/24 with the complaint of worsening swelling after delivery. She denies headaches. She presented to rule out pre-eclampsia. Blood pressures were noted to be normal at 120's/80's. Patient was reassured of normal blood pressures. She denies calf tenderness She was discharged to home after vitals were taken and she was reassured. Assessment Plan (1) Edema: 12/09/24 1731 Date Shaila Ruelas DO Cosigner Signature (if applicable): Date CC: Dr. Shaila Ruelas, DO; No Primary Care Physician Signed Normal [facility] Rule out Beta Strep (Grp. B) on 12-03-2024 JEAN PIERRE Streptococcus agalac tiae (B) Amount Growth Growth Streptococcus agalactiae (B): REACTION Ampicillin Islt GUANAKO <=0.25 cefTRIAXone Islt GUANAKO <=0.12 S Clindamycin Islt GUANAKO R Clindamycin.induced Susc Islt POS Linezolid Islt GUANAKO <=2 S Vancomycin Islt GUANAKO 0.5 S Normal [facility] Comment on above: Performed By: #### L 501.4405, L400.0001, L501.0900, L100.0500, L504.2610, L501.1105, L501.1400, L501.4100 #### [facility] Laboratory [address] [place], [place], [id number] CBC-Complete Blood Cnt No Di ffon 12-02-2024 Erythrocyte distribution width (RBC) [Ratio] 12.1 % Normal 11.6-14.6 [facility] Comment on above: Order Comment: Comme nts: Day #1Reason for Laboratory Test Performed By: #### L 100.0500 ####[facility] [address] [place], [address] Hematocrit (Bld) [Volume fraction] 32.1 % Low 37-47 [facility] Comment on above: Order Comment: Comme nts: Day #1Reason for Laboratory Test Performed By: #### L 100.0500 ####[facility] [address] [place], [address] Hemoglobin (Bld) [Mass/Vol] 11.1 g/dL Low 12.0-15.0 [facility] Comment on above: Order Comment: Comme nts: Day #1Reason for Laboratory Test Performed By: #### L 100.0500 ####[facility] [address] [place], [address] MCH (RBC) [Entitic mass] 29.5 pg Normal 27.0-32.0 [facility] Comment on above: Order Comment: Comme nts: Day #1Reason for Laboratory Test Performed By: #### L 100.0500 ####[facility] [address] [place], [address] MCHC (RBC) [Mass/Vol] 34.6 g/dL Normal 32-36 [facility] Comment on above: Order Comment: Comme nts: Day #1Reason for Laboratory Test Performed By: #### L 100.0500 ####[facility] [address] [place], [address] MCV (RBC) [Entitic vol] 85.4 fL Normal 81-99 [facility] Comment on above: Order Comment: Comme nts: Day #1Reason for Laboratory Test Performed By: #### L 100.0500 ####[facility] [address] [place], [address] Platelet mean volume (Bld) [Entitic vol] 10.6 fL Normal 6.2-12.0 [facility] Comment on above: Order Comment: Comme nts: Day #1Reason for Laboratory Test Performed By: #### L 100.0500 ####[facility] [address] [place], [address] Platelets (Bld) [#/Vol] 186 10*3/uL Normal 150-450 [facility] Comment on above: Order Comment: Comme nts: Day #1Reason for Laboratory Test Performed By: #### L 100.0500 ####[facility] [address] [place], [address] RBC (Bld) [#/Vol] 3.76 10*6/uL Low 4.2-5.4 [facility] Comment on above: Order Comment: Comme nts: Day #1Reason for Laboratory Test Performed By: #### L 100.0500 ####[facility] [address] [place], [address] RDW SD 37.2 fl Normal 35.1-43.9 [facility] Comment on above: Order Comment: Comme nts: Day #1Reason for Laboratory Test Performed By: #### L 100.0500 ####[facility] [address] [place], [address] WBC (Bld) [#/Vol] 20.9 10*3/uL High 4.4-11.0 [facility] Comment on above: Order Comment: Comme nts: Day #1Reason for Laboratory Test Performed By: #### L 100.0500 ####[facility] [address] [place], [address] Pathology Specimen OBon PATH. Spec OB SEE PATHOLOGY REPORT Normal [facility] Comment on above: Order Comment: Send Specimen For (Specify): Studies @ [facility] Lab:RoutineTime of Procedure: 2036Date of Procedure: 12/01/24Reason specimen being sent to pathology (Hx/complications):TWINSType of specimen: PlacentaType of procedure performed: Repeat Section Result Comment: Spec imen submitted to Anatomical Pathology Department for testing. Performed By: #### L 350.1800 ####[facility] [address] [place], [address] AST(SGOT)on 12-01-2024 AST [Catalytic activity/Vol] 27 U/L Normal 15-37 [facility] Comment on above: Performed By: #### L 501.4405, L400.0001, L501.0900, L100.0500, L504.2610, L501.1105, L501.1400, L501.4100 #### [facility] [address] [facility] [place], [address] Alanine Aminotransferas (SGP T)on 12-01-2024 ALT [Catalytic activity/Vol] 17 U/L Normal 13-56 [facility] Comment on above: Performed By: #### L 501.4405, L400.0001, L501.0900, L100.0500, L504.2610, L501.1105, L501.1400, L501.4100 #### [facility] [address] [facility] [place], [address] CBC-Complete Blood Cnt No Di ffon 12-01-2024 Erythrocyte distribution width (RBC) [Ratio] 12.3 % Normal 11.6-14.6 [facility] Comment on above: Performed By: #### L 501.4405, L400.0001, L501.0900, L100.0500, L504.2610, L501.1105, L501.1400, L501.4100 #### [facility] [address] [place], [address] Hematocrit (Bld) [Volume fraction] 35.5 % Low 37-47 [facility] Comment on above: Performed By: #### L 501.4405, L400.0001, L501.0900, L100.0500, L504.2610, L501.1105, L501.1400, L501.4100 #### [facility] [address] [place], [address] Hemoglobin (Bld) [Mass/Vol] 12.2 g/dL Normal 12.0-15.0 [facility] Comment on above: Performed By: #### L 501.4405, L400.0001, L501.0900, L100.0500, L504.2610, L501.1105, L501.1400, L501.4100 #### [facility] [address] [place], [address] MCH (RBC) [Entitic mass] 29.5 pg Normal 27.0-32.0 [facility] Comment on above: Performed By: #### L 501.4405, L400.0001, L501.0900, L100.0500, L504.2610, L501.1105, L501.1400, L501.4100 #### [facility] [address] [place], [address] MCHC (RBC) [Mass/Vol] 34.4 g/dL Normal 32-36 [facility] Comment on above: Performed By: #### L 501.4405, L400.0001, L501.0900, L100.0500, L504.2610, L501.1105, L501.1400, L501.4100 #### [facility] [address] [facility] [place], [address] MCV (RBC) [Entitic vol] 85.7 fL Normal 81-99 [facility] Comment on above: Performed By: #### L 501.4405, L400.0001, L501.0900, L100.0500, L504.2610, L501.1105, L501.1400, L501.4100 #### [facility] [address] [facility] [place], [address] Platelet mean volume (Bld) [Entitic vol] 10.6 fL Normal 6.2-12.0 [facility] Comment on above: Performed By: #### L 501.4405, L400.0001, L501.0900, L100.0500, L504.2610, L501.1105, L501.1400, L501.4100 #### [facility] [address] [place], [address] Platelets (Bld) [#/Vol] 223 10*3/uL Normal 150-450 [facility] Comment on above: Performed By: #### L 501.4405, L400.0001, L501.0900, L100.0500, L504.2610, L501.1105, L501.1400, L501.4100 #### [facility] [address] [facility] [place], [address] RBC (Bld) [#/Vol] 4.14 10*6/uL Low 4.2-5.4 [facility] Comment on above: Performed By: #### L 501.4405, L400.0001, L501.0900, L100.0500, L504.2610, L501.1105, L501.1400, L501.4100 #### [facility] [address] [place], [address] RDW SD 38.4 fl Normal 35.1-43.9 [facility] Comment on above: Performed By: #### L 501.4405, L400.0001, L501.0900, L100.0500, L504.2610, L501.1105, L501.1400, L501.4100 #### [facility] [address] [place], [address] WBC (Bld) [#/Vol] 15.5 10*3/uL High 4.4-11.0 [facility] Comment on above: Performed By: #### L 501.4405, L400.0001, L501.0900, L100.0500, L504.2610, L501.1105, L501.1400, L501.4100 #### [facility] [address] [place], [address] Discharge Instructionon Discharge Instruction [facility] Medical Records Department [address] [place] [address] Instructions for Home/Discharge Instructions 12/01/242013 MR#: [id number] Acct: [id number] Name: SUSIE LOZANO Rep #: [id number] : 1985 39 From: Shaila Ruelas DO PCP: [place] Physician,No Primary Status:ADM IN Discharge Instructions Diet Discharge Diet: No restrictions DC O2, CPAP, BIPAP needs Home O2 Discharge instructions: No Dressing / Incision Discharge Activity: May Not Drive (for 2 weeks or while taking narcotic pain medications.), May Shower and May Take a Tub Bath (in 7 days.) May resume sexual activity in: 4-6 weeks Weight Bearing Status: Full weight bearing Lifting Restrictions: 20 pounds Dressing / Incision Call your doctor if your incision/area has: Continuous Slow Oozing, Sudden Increased Bleeding, Increased Pain/ Swelling, Increased Redness and Foul Smelling Discharge Call your doctor if you observe: Fever of 101 or Higher and Using more than 1 pad per hour Suture Line Care: Avoid Pulling/Pushing and Avoid Pinching/Bending Cleanse incision/area with: Soap Water and Keep Dressing Clean Dry Follow Up Care Please Follow Up With: Shaila Ruelas DO When: Call [phone] to make an appointment for an incision check in 1-2 weeks. Test Results: Test results from this visit will be discussed in further detail at your follow-up appointment, if applicable. Discharge Plan Admission Admit Date/Time: 12/01/24 19:29 Primary Reason for Your Visit: Attending Provider: Shaila Ruelas Primary Care Provider: Care Physician,No Primary Discharge Orders/Prescriptions Prescriptions: New ibuprofen 800 mg tablet 800 mg PO Q8H PRN (Reason: pain) Qty: 30 0RF oxycodone-acetaminophen [Percocet] 5-325 mg tablet 1 tab PO Q4H PRN (Reason: pain) 7 Days Qty: 30 0RF Rx Instructions: 1-2 tabs q 4 hrs as needed for pain Continued PNV no.[id number]-ngy-wyu-rnoa 400 mcg-35 mg- 25 mg-5 mg tablet,chewable 1 tab PO hydroxyzine pamoate 50 mg capsule 50 mg PO QHS Qty: 30 3RF Referrals / Follow Up: Care Physician,No Primary [Primary Care Provider] - Disposition Disposition (needs filled in before D/C Order can be placed): Home, Self Care 12/01/242015 Shaila Ruelas DO CC: No Primary Care Physician Signed Normal [facility] H AND P Exam - OB/GYNon H&P Exam - 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 She changed her cervix from 1 cm to 3 cm in 1 hour and is in 6/10 pain. The decision is made to proceed with a repeat section ayo. Maternal Data Information POORNIMA Calculator Estimated Delivery Date Method Current WG Current Estimate 12/31/24 LMP (Certain) 35w 5d Other Estimates 12/28/24 Ultrasound #1 36w 1d # 2 PFSH PFSH Medical History (Updated 12/01/24 @ 19:45 by Sobeida Hayes) History of blood transfusion hemorrhage Hemorrhoids during History of Amenorrhea Psychosomatic pain Pelvic pain Anxiety LGSIL (low grade squamous intraepithelial dysplasia) Home Medications ???Medication ???Instructions ???Recorded ???Last Taken ???Type PNV 153-FA 400 mcg-om3 35 mg-dha 1 tab PO 05/18/24 Unknown History 25 mg-epa 5 mg-fish oil chew tablet hydroxyzine pamoate 50 mg capsule 50 mg PO QHS #30 caps 11/16/24 Unknown Rx Allergy/AdvReac Type Severity Reaction Status Date / Time No Known Allergies Allergy Verified 12/01/24 18:51 Surgical History H/O breast augmentation H/O foot surgery History of tonsillectomy H/O: Social History adopted: No household members: spouse and children number of children: 3 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 exposures/hazards: No pets and animals: Yes pets and animals: dog(s) history of recent travel: No sexually active: Yes Smoking Status: Never smoker alcohol intake: never substance use type: does not use well-balanced diet: daily or most days caffeine: No eating out: rarely or never during the past year weight has: remained stable what type of physical activity do you participate in: walking and other details: [place] ball frequency: 1-2 times per week duration: > 90 minutes/day velia/methodist: Pentecostalism seatbelt use: always do you feel safe at home: Yes 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 Date Name GA/Weeks Outcome Route Bth Weight Infant Gen Labor Lgth Anesthesia Del Locatn Provider FOB Unknown 2011 Macy 7 lbs 13 oz Female [facility] Unknown 2014 Rip 9 lbs 1 oz Male [place] 10/13/18 Nicole 39 live - full term 7#13oz Female spinal [place] Delivery Date: 10/13/18 Last Updated by: Bridget Glez rpt cs prior didn't go well Visit Details Expected Delivery Route/Plan RLTCS with Labor Preferences- CB/BF classes: [] labor support person: [] labor intervention preferences: [] pain management options preferred: [] cut cord/dad catch: [] : [] PP control planned: [] discussed possible routes of delivery and associated risks: [] special requests: [] Plans Covid status: [] Flu vaccine: [] Tdap vaccine: Rhogam: [] LARC form signed: [] Problem list reviewed and updated with the most current plan of care details and appropriate orders placed. Relevant counseling for the gestational age provided. Continue routine care and follow up unless otherwise noted in visit notes/problem list details OB Flowsheet Initial Weight: Not Recorded Date -???-???-???-???-???-???-?? ?-???-???-???-???-???- EGA Weight BP Urine Prot -???-???-???-???-???-???-?? ?-???-???-???-???-???- Glucose FHR FuHt Pres Dilation -???-???-???-???-???-???-?? ?-???-???-???-???-???- Effaced St Visit Note 05/24/24 -???-???-???-???-???-???-?? ?-???-???-???-???-???- 8w 3d 169 lb 8 oz 117/77 -???-???-???-???-???-???-?? ?-???-???-???-???-???- A 139 -???-???-???-???-???-???-?? ?-???-???-???-???-???- B 186 A -???-???-???-???-???-???-?? ?-???-???-???-???-???- B -???-???-???-???-???-???-?? ?-???-???-???-???-???- A -???-???-???-???-???-???-?? ?-???-???-???-???-???- B A JV- twin gestation p resent. suspect mono/di but we discussed genetic test and MFM will tell best. RTO in 2-3 weeks for heart tones. -???-???-???-???-???-???-?? ?-???-???-???-???-???- B 06/09/24 -???-???- (more content not included)... Normal [facility] L509.8000on 12-01-2024 Syphilis Abs Non-Reactive Normal [facility] Comment on above: Performed By: #### L 509.8000 ####[facility] [address] [place], [address] LDHon 12-01-2024 LDH 171 U/L Normal 84-246 [facility] Comment on above: Performed By: #### L 501.4405, L400.0001, L501.0900, L100.0500, L504.2610, L501.1105, L501.1400, L501.4100 #### [facility] [address] [place], [address] Operative Reporton Operative Report [facility] Medical Records Department [address] [place] [address] Operative Report 12/01/24 2102 MR#: [id number] Acct: [id number] Name: SUSIE LOZANO Rep #: [id number] : 1985 39 From: Shaila Ruelas DO PCP: Care Physician,No Primary Status:ADM IN Location: HK316-3 Assessment Plan (1) Thrombosed external hemorrhoid: COMMENT: s/p draining of hemorrhoid in GS. pt to follow up post for more surgery. (2) Single umbilical artery: COMMENT: twin A (3) Monochorionic diamniotic twin gestation: COMMENT: echo nl, growth q 4 weeks, weekly bpp at 32, deliver 37 (4) AMA (advanced maternal age) multigravida 35+: (5) History of 2 sections: COMMENT: RLTCS with SM 12/10 @ 7:15 (6) Hx of maternal blood transfusion, currently : COMMENT: after (7) Supervision of high-risk : COMMENT: PRR , POORNIMA 12/31/24, boys Rip Rodriguez Rensselear Wero (8) : QUALIFIERS: Weeks of gestation: 35 weeks Qualified Code(s): Z3A.35 - 35 weeks gestation of COMMENT: low risk NIPT, declines carrier testing. anatomy reveiwed (9) Low grade squamous intraepithelial lesion (LGSIL): COMMENT: colposcopy 05/2021:neg. 05/2022:neg pap with positive HPV; rpt pap 2022 negative (10) Hemorrhoids during : QUALIFIERS: Trimester: second trimester Qualified Code(s): O22.42 - Hemorrhoids in , second trimester Maternal Data Information POORNIMA Calculator Estimated Delivery Date Method Current WG Current Estimate 12/31/24 LMP (Certain) 35w 5d Other Estimates 12/28/24 Ultrasound #1 36w 1d # 2 Final POORNIMA Source: LMP Gestational age: 35 weeks 5 days [place] Doctor Who Attended Delivery: Perla Flannery Operative Report (OB) Cecarean Details Procedure Type: low transverse Date of Procedure: 12/01/24 Procedure Start Time: 20:32 Procedure Stop Time: 21:03 Time of Delivery: 20:37 Pre-Operative Diagnosis: Repeat Elective and Other (twin gestation , mono/di, active labor) Other Pre-Operative diagnosis: noen Post-Operative Diagnosis: Same as Pre-operative diagnosis Classification: AYO Type of Anesthesia: Spinal Antibiotic Given: Ancef 2 grams IV x1 Drain: Mayorga to straight drain Estimated Blood Loss: 400cc Findings Description of surgery: The patient is a 39 presented for repeat due to active labor at 35 weeks 3 days with mono/di twins. Spinal anesthesia was placed without difficulty. Mayorga catheter was placed. The patient was placed in the dorsal supine position with leftward tilt. Patient was prepped and draped in the normal sterile fashion. Pfannenstiel skin incision was made with the scalpel and carried through to the underlying layer of fascia with the scalpel. Fascia was nicked in the midline and the incision extended laterally. The rectus bellies were dissected off superiorly and inferiorly with out complication both sharply and bluntly. The peritoneum was entered digitally. The incision was stretched and a low transverse uterine incision was made with the scalpel. The 's head was delivered atraumatically followed by the anterior and posterior shoulders without complication the rest of the infant delivered. The cord was clamped and cut and the infant was handed off to awaiting nurse. The second was delivered in a similar fashion. The placenta was delivered spontaneously immediately following and was noted to be intact and have a three-vessel cord. The uterus was exteriorized cleared of all clots and debris, and the incision was closed in a single layer closure using #1 vicryll. The ovaries and fallopian tubes were noted to be within normal limits. The uterus was returned to the maternal abdomen and gutters were cleared of all clots and debris. The peritoneum was closed with 3-0 Monocryl in a running fashion. The Fascia was closed with 0 PDS in a running fashion. Subcutaneous tissue was copiously irrigated and the skin was closed with 3-0 Monocryl in a subcuticular fashion. Mepilex dressing was applied without complication. Patient was taken to recovery in stable condition. It was discussed with the patient that based on the clinical information obtained during this encounter, combined with her history, at this time I would recommend repeat for future deliveries if further pregnancies are desired. Surgical findings: viable male twin infants, normal uterus, tubes, and ovaries. Presentation: Vertex Amniotic Membrane Rupture Type: Artificial Amniotic Fluid Description: Clear Placental Delivery Description: Manual Removal Placenta Disposition: Sent to Pathology Specimen collected: Yes Description of specimen(s) removed: placenta Cord Vessel Description: 3 Vessels Cord Entanglement: None A gender: Male (more content not included)... Normal [facility] Protein+Creatinine Ratio,Uri neon 12-01-2024 PROT:CRE RATIO TNP Normal 0-200 [facility] Comment on above: Performed By: #### L 501.4405, L400.0001, L501.0900, L100.0500, L504.2610, L501.1105, L501.1400, L501.4100 ####[facility] [address] [place], [address] PROTEIN,UR.RAN. < 6.0 Normal <11.9 [facility] Comment on above: Performed By: #### L 501.4405, L400.0001, L501.0900, L100.0500, L504.2610, L501.1105, L501.1400, L501.4100 ####[facility] [address] [place], [address] UR CREAT 42.20 mg/dL Normal NO RANGE EST. [facility] Comment on above: Performed By: #### L 501.4405, L400.0001, L501.0900, L100.0500, L504.2610, L501.1105, L501.1400, L501.4100 ####[facility] [address] [place], [address] Serum Creatinine AND GFRon 0 - Creatinine [Mass/Vol] 0.75 mg/dL Normal 0.55-1.02 [facility] Comment on above: Result Comment: The validity of the calculated GFR GFRAA in patients over 70 years has not been determined. Clinical correlation is essential. Performed By: #### L 501.4405, L400.0001, L501.0900, L100.0500, L504.2610, L501.1105, L501.1400, L501.4100 #### [facility] [address] [place], [address] ECRCL 128.67 ml/min Normal [facility] Comment on above: Performed By: #### L 501.4405, L400.0001, L501.0900, L100.0500, L504.2610, L501.1105, L501.1400, L501.4100 #### [facility] [address] [facility] [id number] EST GFR - AA 112 mL/min Normal >60 [facility] Comment on above: Result Comment: Afri can Zimbabwean GFR Calc Performed By: #### L 501.4405, L400.0001, L501.0900, L100.0500, L504.2610, L501.1105, L501.1400, L501.4100 #### [facility] [address] [place], [address] (898) GFR/1.73 sq M.predicted among non-blacks MDRD (S/P/Bld) [Vol rate/Area] 93 mL/min/{1.73_m2} Normal >60 [facility] Comment on above: Result Comment: Non- GFR Calc Performed By: #### L 501.4405, L400.0001, L501.0900, L100.0500, L504.2610, L501.1105, L501.1400, L501.4100 #### [facility] [address] [place], [place], [id number] Surgery Specimen Level Von 0 12-01-2024 Surgery Specimen Level V Patient Age/Sex Location Account Attending Physician SUSIE LOZANO 39/F [id number] Jose Lu Specimen: [id number] Received: 12/02/24 Status: JAIME Uriarte Num: [id number] Spec Type: PLACENTA Subm Dr: Dr. Shaila Ruelas DO [facility] OPERATION: Delivery PRE-OP DIAGNOSIS: Repeat section, TWINS TISSUE SUBMITTED: Placenta MICROSCOPIC DIAGNOSIS Twin placenta: Monochorionic and diamniotic twin placenta. Placental disc - third trimester placenta (986gm). - Focal area of infarction (toward placenta B measuring 2.0cm in greatest dimension). Placenta A Membranes - no pathologic diagnosis. Umbilical cord - two blood vessels toward maternal end and three blood vessels toward end Placenta B Membranes - no pathologic diagnosis. Umbilical cord -three blood vessels, no pathologic diagnosis. SJ: 12/06/2024 MICROSCOPIC DESCRIPTION Slides are reviewed. GROSS DESCRIPTION SPECIMEN: TWIN PLACENTA / CLINICAL INFORMATION: A. Weight: A - 3.485 kg; B - 3.27kg B. Gestational Age: 35 weeks C. Sex: A- Male, B- Male The specimen consists of a twin placenta consisting of a single placental disc, two amniotic sacs, and two umbilical cords. Dividing membranous septum is inserted in the middle of the placental disc. Umbilical cords are not identified as placenta A or B. They are arbitrarily assigned as A B. PLACENTAL WEIGHT (POST FIXATION): 986gm, also present in the container a detached piece of placental tissue weighing 17 gm. PLACENTAL DIMENSIONS: 23.0 x 21.0 x 4.5cm, detached piece of tissue measures 6 x 3 x 2 cm PLACENTAL SHAPE: Ovoid PLACENTAL WEIGHT FOR GESTATIONAL AGE: Within 10-99th percentile PLACENTA A: Patient Age/Sex Location Account Attending Physician SUSIE LOZANO 39/F WP [id number] Jose Lu MEMBRANES - Present A. Insertion: Marginal B. Site of rupture from edge: at margin of placental disc C. Color of membrane: Argueta-anderson D. Abnormalities: Sections reveal two blood vessels toward the maternal end and three blood vessels toward the end. UMBILICAL CORD - Present A. Color: Argueta-anderson B. Insertion: Marginal C. Length: 34cm D. Diameter: 1.2cm E. Number of vessels: Three F. Abnormalities: None PLACENTA B: MEMBRANES - Present A. Insertion: Marginal B. Site of rupture from edge: Membranes are fragmented. Distance of rupture cannot be assessed. C. Color of membrane: Argueta-anderosn D. Abnormalities: None UMBILICAL CORD - Present A. Color: Argueta-anderson B. Insertion: Marginal C. Length: 33cm D. Diameter: 1.4cm E. Number of vessels: Three F. Abnormalities: None PLACENTAL DISC - Present A. Color of surface: Argueta-anderson B. surface abnormalities: None C. Maternal cotyledons: disrupted, completeness of placenta cannot be assessed. D. Attached retro placental clot: None E. Cut surface: Dark red and spongy F. Lesions: Sections of placental disc reveal a argueta indurated area close to surface measuring 2.0cm in greatest dimension. This area is present close to Placenta B portion of placental disc G. Separate clot: Also present in the container are multiple detached blood clots weighing in aggregate 41.0gm and measuring in aggregate 7.0 x 5.0 x 3.0cm. SECTIONS SUBMITTED: 12 cassettes 1 - Dividing membranous septum, 2-6 - placenta A (2 - membrane roll, 3 - umbilical cord, end notched - inked black, 4-6 - body of the placenta including maternal and surfaces), 7-11 - placenta B (7 - membrane roll, 8 - umbilical cord, end notched - inked black, 9-11 - body of the placenta including maternal and surfaces) and lesion, 12- detached piece of placental tissue. SJ. 12/03/2024 TC:5 CPT: 46336 x2 Patient Age/Sex Location Account Attending Physician SUSIE LOZANO 39/F [id number] Jose Lu Signed (signature on file) Dr. Matthew Guillen MD 12/06/24 1342 --- (more content not included)... Normal [facility] Comment on above: Performed By: #### P SUV ####[facility] [address] [place], [place], [id number] Type AND Screenon 12-01-2024 ABO and Rh group Nom (Bld) Blood group O Rh(D) positive Normal [facility] Comment on above: Order Comment: SC-SE CTION Performed By: #### B TS ####[facility] [address] [place], [place], [id number] Uric Acidon 12-01-2024 URIC 4.7 mg/dL Normal 2.6-6.0 [facility] Comment on above: Result Comment: The drugs N-Acetylcysteine and Metamizole may falsely depress this assay. Performed By: #### L 501.4405, L400.0001, L501.0900, L100.0500, L504.2610, L501.1105, L501.1400, L501.4100 #### [facility] [address] [place], [place], [phone] Urinalysis, Completeon 12-01 AMORPHOUS 1+ Normal [facility] Comment on above: Order Comment: CLEAN CATCH Performed By: #### L 501.4405, L400.0001, L501.0900, L100.0500, L504.2610, L501.1105, L501.1400, L501.4100 ####[facility] [address] [place], [address] BACTERIA 1+ /hpf Normal None Seen [facility] Comment on above: Order Comment: CLEAN CATCH Performed By: #### L 501.4405, L400.0001, L501.0900, L100.0500, L504.2610, L501.1105, L501.1400, L501.4100 ####[facility] [address] [place], [address] EPI,SQUAMOUS 0-5 SEEN Normal 5-10 [facility] Comment on above: Order Comment: CLEAN CATCH Performed By: #### L 501.4405, L400.0001, L501.0900, L100.0500, L504.2610, L501.1105, L501.1400, L501.4100 ####[facility] [address] [place], [address] Mucus Ql (Urine sed) 0 SEEN Normal [facility] Comment on above: Order Comment: CLEAN CATCH Performed By: #### L 501.4405, L400.0001, L501.0900, L100.0500, L504.2610, L501.1105, L501.1400, L501.4100 ####[facility] [address] [place], [address] RBC 0 SEEN Normal 0-5 [facility] Comment on above: Order Comment: CLEAN CATCH Performed By: #### L 501.4405, L400.0001, L501.0900, L100.0500, L504.2610, L501.1105, L501.1400, L501.4100 ####[facility] [address] [place], [address] WBC 0 SEEN Normal 0-5 [facility] Comment on above: Order Comment: CLEAN CATCH Performed By: #### L 501.4405, L400.0001, L501.0900, L100.0500, L504.2610, L501.1105, L501.1400, L501.4100 ####[facility] [address] [place], [address] Public Address Announcer Office Visit Reporton 11-29-2024 Public Address Announcer Office Visit Report [facility] [address], [address] [place] [address] OFFICE VISIT Date of Service: 11/29/24 MR#: [id number] Acct: [id number] Name: SUSIE LOZANO Rep #: [id number] 7 : 1985 Provider: Dr. Shaila Ny DO Age/Sex: 39/F Location: [facility] Status: Signed Intake Vital Signs 09/24/24 12:32 11/23/24 10:34 11/29/24 13:06 Height 5 ft 7 in 5 ft 7 in 5 ft 7 in Weight: 233 lb 2 oz BMI 36.5 BP 121/87 H Intake Visit Reasons: 35 wk ob twins Onion Tier Required: No Is patient in pain?: No Allergies No Known Allergies Allergy (Verified 11/29/24 13:09) Medications ???Medication ???Instructions ???Recorded ???Confirmed ???Type PNV 153-FA 400 mcg-om3 35 mg-dha tab PO 05/18/24 11/29/24 History 25 mg-epa 5 mg-fish oil chew tablet ondansetron HCl 4 mg tablet 4 mg PO Q8H PRN nausea and 05/24/24 11/29/24 Rx vomiting #30 tabs hydrocortisone 1 %-pramoxine 1 % 1 applic MA TID-QID PRN 07/19/24 11/29/24 Rx rectal foam (Proctofoam HC) hemorrhoids #10 grams hydroxyzine pamoate 50 mg capsule 50 mg PO QHS #30 caps 11/16/24 11/29/24 Rx Last Menstrual Period: 03/26/24 Zika: Zika virus screening: Negative : No PFSH PFSH Medical History Hemorrhoids during Amenorrhea Psychosomatic pain Pelvic pain Anxiety History of LGSIL (low grade squamous intraepithelial dysplasia) Surgical History H/O breast augmentation H/O foot surgery History of tonsillectomy H/O: Social History adopted: No household members: spouse and children number of children: 3 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 exposures/hazards: No pets and animals: Yes pets and animals: dog(s) history of recent travel: No sexually active: Yes Smoking Status: Never smoker alcohol intake: never substance use type: does not use well-balanced diet: daily or most days caffeine: No eating out: rarely or never during the past year weight has: remained stable what type of physical activity do you participate in: walking and other details: Greysox ball frequency: 1-2 times per week duration: > 90 minutes/day velia/methodist: Pentecostalism seatbelt use: always do you feel safe at home: Yes 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 Date Name GA/Weeks Outcome Route Bth Weight Gen Labor Lgth Anesthesia Del Locatn Provider FOB Unknown 2011 Macy 7 lbs 13 oz Female [facility] Unknown 2014 Rip 9 lbs 1 oz Male [place] 10/13/18 [place] 39 live - full term 7#13oz Female spinal [place] Delivery Date: 10/13/18 Last Updated by: Bridget Glez rpt cs prior didn't go well HPI 35 wk ob twins Details: SUSIE LOZANO is a 39 year old who presents for routine OB visit. OB Visit POORNIMA Calculator Estimated Delivery Date Method Current WG Current Estimate 12/31/24 LMP (Certain) 35w 3d Other Estimates 12/28/24 Ultrasound #1 35w 6d # 2 Expected Delivery Route/Plan RLTCS with SM Labor Preferences- CB/BF classes: [] labor support person: [] labor intervention preferences: [] pain management options preferred: [] cut cord/dad catch: [] : [] PP control planned: [] discussed possible routes of delivery and associated risks: [] special requests: [] Specific Issue/Plans Covid status: [] Flu vaccine: [] Tdap vaccine: Rhogam: [] LARC form signed: [] Problem list reviewed and updated with the most current plan of care details and appropriate orders placed. Relevant counseling for the gestational age provided. Continue routine care and follow up unless otherwise noted in visit notes/problem list details Initial Weight: Not Recorded Date -???-???-???-???-???-???-?? ?-???-???-???-???-???- EGA Weight BP Urine Prot -???-???-???-???-???-???-?? ?-???-???-???-???-???- Glucose FHR FuHt Pres Dilation -???-???-???-???-???-???-?? ?-???-???-???-???-???- Effaced St Visit Note 05/24/ -???-???-???-???-???-???-?? ?-???-???-???-???-???- 8w 3d 169 lb 8 oz 117/77 -???-???-???-???-???-???-?? ?-???-???-???-???-???- A 139 -???-???-???-???-???-???-?? ?-???-???-???-???-???- B 186 A -???-???-???-???-???-???-?? ?-???-???-???-???-???- B -???-???-???-???-???-???-?? ?-???-???-???-???-???- A -???-???-???-???-??? (more content not included)... Normal [facility] Public Address Announcer Office Visit Reporton 11-23-2024 Public Address Announcer Office Visit Report [facility] [address], [address] [place] [address] OFFICE VISIT Date of Service: 11/23/24 MR#: [id number] Acct: [id number] Name: SUSIE LOZANO Rep #: [id number] 5 : 1985 Provider: Dr. Charlene slade MD Age/Sex: 39/F Location: [facility] Status: Signed Intake Vital Signs 07/19/24 10:06 11/16/24 11:07 11/23/24 10:34 Height 5 ft 7 in 5 ft 7 in 5 ft 7 in Weight: 224 lb BMI 35.0 BP 127/84 H Intake Visit Reasons: 34 wk ob *twins* Onion Tier Required: No Is patient in pain?: No Feel stressed/tense/nervous/anxi ous/difficulty sleeping: not at all Allergies No Known Allergies Allergy (Verified 11/23/24 10:35) Medications ???Medication ???Instructions ???Recorded ???Confirmed ???Type PNV 153-FA 400 mcg-om3 35 mg-dha tab PO 05/18/24 11/23/24 History 25 mg-epa 5 mg-fish oil chew tablet ondansetron HCl 4 mg tablet 4 mg PO Q8H PRN nausea and 05/24/24 11/23/24 Rx vomiting #30 tabs hydrocortisone 1 %-pramoxine 1 % 1 applic MA TID-QID PRN 07/19/24 11/23/24 Rx rectal foam (Proctofoam HC) hemorrhoids #10 grams hydroxyzine pamoate 50 mg capsule 50 mg PO QHS #30 caps 11/16/24 11/23/24 Rx Last Menstrual Period: 03/26/24 Zika: Zika virus screening: Negative : No Have you fallen in the past year?: No PFSH PFSH Medical History Hemorrhoids during Amenorrhea Psychosomatic pain Pelvic pain Anxiety History of LGSIL (low grade squamous intraepithelial dysplasia) Surgical History H/O breast augmentation H/O foot surgery History of tonsillectomy H/O: Social History adopted: No household members: spouse and children number of children: 3 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 exposures/hazards: No pets and animals: Yes pets and animals: dog(s) history of recent travel: No sexually active: Yes Smoking Status: Never smoker alcohol intake: never substance use type: does not use well-balanced diet: daily or most days caffeine: No eating out: rarely or never during the past year weight has: remained stable what type of physical activity do you participate in: walking and other details: Greysox ball frequency: 1-2 times per week duration: > 90 minutes/day velia/methodist: Pentecostalism seatbelt use: always do you feel safe at home: Yes 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 Date Name GA/Weeks Outcome Route Bth Weight Infant Gen Labor Lgth Anesthesia Del Locatn Provider FOB Unknown 2011 Macy 7 lbs 13 oz Female [facility] Unknown 2014 Rip 9 lbs 1 oz Male [place] 10/13/18 [place] 39 live - full term 7#13oz Female spinal [place] Delivery Date: 10/13/18 Last Updated by: Bridget Glez rpt cs prior didn't go well HPI 34 wk ob *twins* Details: SUSIE LOZANO is a 39 year old who presents for routine OB visit. OB Visit POORNIMA Calculator Estimated Delivery Date Method Current WG Current Estimate 12/31/24 LMP (Certain) 34w 4d Other Estimates 12/28/24 Ultrasound #1 35w 0d # 2 Expected Delivery Route/Plan RLTCS with Labor Preferences- CB/BF classes: [] labor support person: [] labor intervention preferences: [] pain management options preferred: [] cut cord/dad catch: [] : [] PP control planned: [] discussed possible routes of delivery and associated risks: [] special requests: [] Specific Issue/Plans Covid status: [] Flu vaccine: [] Tdap vaccine: Rhogam: [] LARC form signed: [] Problem list reviewed and updated with the most current plan of care details and appropriate orders placed. Relevant counseling for the gestational age provided. Continue routine care and follow up unless otherwise noted in visit notes/problem list details Initial Weight: Not Recorded Date -???-???-???-???-???-???-?? ?-???-???-???-???-???- EGA Weight BP Urine Prot -???-???-???-???-???-???-?? ?-???-???-???-???-???- Glucose FHR FuHt Pres Dilation -???-???-???-???-???-???-?? ?-???-???-???-???-???- Effaced St Visit Note 05/24/24 -???-???-???-???-???-???-?? ?-???-???-???-???-???- 8w 3d 169 lb 8 oz 117/77 -???-???-???-???-???-???-?? ?-???-???-???-???-???- A 139 -???-???-???-???-???-???-?? ?-???-???-???-???-???- B 186 A -???-???-???-???-???-???-?? ?-?? (more content not included)... [facility] Public Address Announcer Office Visit Reporton 11-16-2024 Public Address Announcer Office Visit Report [facility] [address], [address] [place] [address] OFFICE VISIT Date of Service: 11/16/24 MR#: [id number] Acct: [id number] Name: SUSIE LOZANO Rep #: [id number] 1 : 1985 Provider: Dr. Shaila Ny DO Age/Sex: 39/F Location: [facility] Status: Signed Intake Vital Signs 09/24/24 12:30 11/09/24 13:21 11/16/24 11:02 11/16/24 11:07 Height 5 ft 7 in 5 ft 7 in 5 ft 7 in 5 ft 7 in Weight: 222 lb BMI 34.7 BP 121/79 H Intake Visit Reasons: 33 week ob twins Onion Tier Required: No Is patient in pain?: No Allergies No Known Allergies Allergy (Verified 11/16/24 11:03) Medications ???Medication ???Instructions ???Recorded ???Confirmed ???Type PNV 153-FA 400 mcg-om3 35 mg-dha tab PO 05/18/24 11/16/24 History 25 mg-epa 5 mg-fish oil chew tablet ondansetron HCl 4 mg tablet 4 mg PO Q8H PRN nausea and 05/24/24 11/16/24 Rx vomiting #30 tabs hydrocortisone 1 %-pramoxine 1 % 1 applic MA TID-QID PRN 07/19/24 11/16/24 Rx rectal foam (Proctofoam HC) hemorrhoids #10 grams hydroxyzine pamoate 50 mg capsule 50 mg PO QHS #30 caps 11/16/24 11/16/24 Rx Last Menstrual Period: 03/26/24 Zika: Zika virus screening: Negative : No Have you fallen in the past year?: No PFSH PFSH Medical History Hemorrhoids during Amenorrhea Psychosomatic pain Pelvic pain Anxiety History of LGSIL (low grade squamous intraepithelial dysplasia) Surgical History H/O breast augmentation H/O foot surgery History of tonsillectomy H/O: Social History adopted: No household members: spouse and children number of children: 3 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 exposures/hazards: No pets and animals: Yes pets and animals: dog(s) history of recent travel: No sexually active: Yes Smoking Status: Never smoker alcohol intake: never substance use type: does not use well-balanced diet: daily or most days caffeine: No eating out: rarely or never during the past year weight has: remained stable what type of physical activity do you participate in: walking and other details: Greysox ball frequency: 1-2 times per week duration: > 90 minutes/day velia/methodist: Pentecostalism seatbelt use: always do you feel safe at home: Yes 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 Date Name GA/Weeks Outcome Route Bth Weight Infant Gen Labor Lgth Anesthesia Del Locatn Provider FOB Unknown 2011 Macy 7 lbs 13 oz Female [facility] Unknown 2014 Rip 9 lbs 1 oz Male [place] 10/13/18 [place] 39 live - full term 7#13oz Female spinal [place] Delivery Date: 10/13/18 Last Updated by: Bridget Glez rpt cs prior didn't go well HPI 33 week ob twins Details: SUSIE LOZANO is a 39 year old who presents for routine OB visit. OB Visit POORNIMA Calculator Estimated Delivery Date Method Current WG Current Estimate 12/31/24 LMP (Certain) 33w 4d Other Estimates 12/28/24 Ultrasound #1 34w 0d # 2 Expected Delivery Route/Plan RLTCS with Labor Preferences- CB/BF classes: [] labor support person: [] labor intervention preferences: [] pain management options preferred: [] cut cord/dad catch: [] : [] PP control planned: [] discussed possible routes of delivery and associated risks: [] special requests: [] Specific Issue/Plans Covid status: [] Flu vaccine: [] Tdap vaccine: Rhogam: [] LARC form signed: [] Problem list reviewed and updated with the most current plan of care details and appropriate orders placed. Relevant counseling for the gestational age provided. Continue routine care and follow up unless otherwise noted in visit notes/problem list details Initial Weight: Not Recorded Date -???-???-???-???-???-???-?? ?-???-???-???-???-???- EGA Weight BP Urine Prot -???-???-???-???-???-???-?? ?-???-???-???-???-???- Glucose FHR FuHt Pres Dilation -???-???-???-???-???-???-?? ?-???-???-???-???-???- Effaced St Visit Note 05/24/24 -???-???-???-???-???-???-?? ?-???-???-???-???-???- 8w 3d 169 lb 8 oz 117/77 -???-???-???-???-???-???-?? ?-???-???-???-???-???- A 139 -???-???-???-???-???-???-?? ?-???-???-???-???-???- B 186 A -???-???-???-???-???-???-?? ?-???-???-???-???-???- B -???-???-???-???-???-? (more content not included)... [facility] CBC W/Diff, Automatedon 12-1 1-2024 PATH REV Reviewed [facility] Comment on above: Result Comment: Leuk ocytosis with Neutrophilic left shift. Clinical correlation necessary. Matthew Guillen M.D. 11/10/24 AMENDED REPORT 11/10/24 3086 PATH REV previously reported as: March Performed By: #### L 501.4405, L400.0001, L501.0900, L100.0500, L504.2610, L501.1105, L501.1400, L501.4100 #### [facility] [address] [place], [address] Public Address Announcer Office Visit Reporton 11-09-2024 Public Address Announcer Office Visit Report [facility] [address], [address] [place] [address] OFFICE VISIT Date of Service: 11/09/24 MR#: [id number] Acct: [id number] Name: SUSIE LOZANO Rep #: [id number] 2 : 1985 Provider: Dr. Charlene slade MD Age/Sex: 39/F Location: [facility] Status: Signed Intake Vital Signs 07/19/24 10:06 08/17/24 11:40 10/28/24 23:21 11/09/24 13:18 11/09/24 13:21 Height 5 ft 7 in 5 ft 7 in 5 ft 7 in 5 ft 7 in 5 ft 7 in Weight: 223 lb 4 oz BMI 34.9 BP 114/77 Intake Visit Reasons: 32 wk ob *Twins* Onion Tier Required: No Is patient in pain?: No Feel stressed/tense/nervous/anxi ous/difficulty sleeping: not at all Allergies No Known Allergies Allergy (Verified 11/09/24 13:18) Medications ???Medication ???Instructions ???Recorded ???Confirmed ???Type PNV 153-FA 400 mcg-om3 35 mg-dha tab PO 05/18/24 11/09/24 History 25 mg-epa 5 mg-fish oil chew tablet ondansetron HCl 4 mg tablet 4 mg PO Q8H PRN nausea and 05/24/24 11/09/24 Rx vomiting #30 tabs hydrocortisone 1 %-pramoxine 1 % 1 applic MA TID-QID PRN 07/19/24 11/09/24 Rx rectal foam (Proctofoam HC) hemorrhoids #10 grams Last Menstrual Period: 03/26/24 Zika: Zika virus screening: Negative : No Have you fallen in the past year?: No PFSH PFSH Medical History Hemorrhoids during Amenorrhea Psychosomatic pain Pelvic pain Anxiety History of LGSIL (low grade squamous intraepithelial dysplasia) Surgical History H/O breast augmentation H/O foot surgery History of tonsillectomy H/O: Social History adopted: No household members: spouse and children number of children: 3 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 exposures/hazards: No pets and animals: Yes pets and animals: dog(s) history of recent travel: No sexually active: Yes Smoking Status: Never smoker alcohol intake: never substance use type: does not use well-balanced diet: daily or most days caffeine: No eating out: rarely or never during the past year weight has: remained stable what type of physical activity do you participate in: walking and other details: Greysox ball frequency: 1-2 times per week duration: > 90 minutes/day velia/methodist: Pentecostalism seatbelt use: always do you feel safe at home: Yes 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 Date Name GA/Weeks Outcome Route Bth Weight Infant Gen Labor Lgth Anesthesia Del Locatn Provider FOB Unknown 2011 Macy 7 lbs 13 oz Female [facility] Unknown 2014 Rip 9 lbs 1 oz Male [place] 10/13/18 Nicole 39 live - full term 7#13oz Female spinal [place] Delivery Date: 10/13/18 Last Updated by: Bridget Glez rpt cs prior didn't go well HPI 32 wk ob *Twins* Details: SUSIE LOZANO is a 39 year old who presents for routine OB visit. OB Visit POORNIMA Calculator Estimated Delivery Date Method Current WG Current Estimate 12/31/24 LMP (Certain) 32w 4d Other Estimates 12/28/24 Ultrasound #1 33w 0d # 2 Expected Delivery Route/Plan RLTCS with Labor Preferences- CB/BF classes: [] labor support person: [] labor intervention preferences: [] pain management options preferred: [] cut cord/dad catch: [] : [] PP control planned: [] discussed possible routes of delivery and associated risks: [] special requests: [] Specific Issue/Plans Covid status: [] Flu vaccine: [] Tdap vaccine: Rhogam: [] LARC form signed: [] Problem list reviewed and updated with the most current plan of care details and appropriate orders placed. Relevant counseling for the gestational age provided. Continue routine care and follow up unless otherwise noted in visit notes/problem list details Initial Weight: Not Recorded Date -???-???-???-???-???-???-?? ?-???-???-???-???-???- EGA Weight BP Urine Prot -???-???-???-???-???-???-?? ?-???-???-???-???-???- Glucose FHR FuHt Pres Dilation -???-???-???-???-???-???-?? ?-???-???-???-???-???- Effaced St Visit Note 05/24/24 -???-???-???-???-???-???-?? ?-???-???-???-???-???- 8w 3d 169 lb 8 oz 117/77 -???-???-???-???-???-???-?? ?-???-???-???-???-???- A 139 -???-???-???-???-???-???-?? ?-???-???-???-???-???- B 186 A -???-???-???-???-???-???-?? ?-???-???-???-???-???- B (more content not included)... Normal [facility] OB Triage Progress Noteon OB Triage Progress Note [facility] Medical Records Department [address] [place] [address] OB Triage Progress Note 10/29/24 0010 MR#: [id number] Acct: [id number] Name: SUSIE LOZANO Rep #: [id number] : 1985 39 From: Fatimah Gibson CNM PCP: Care Physician,No Primary Status:REG CLI Y DOS: Location: [place] [address] Progress Notes Date of Service: 10/29/24 Progress Note: Patient presents for triage evaluation secondary to low abdominal cramping at 30.6 weeks FHT: A 135 B 135 both with Moderate variability reactive no decelerations category I tracing [place]: rare Contractions Assessment and plan: Urine negative for UTI, ROm neg, Speculum exam shows cervix is closed. Reactive NST, reassuring maternal and status patient discharged to home to follow-up in office. See problem list details for additional plan information. Laboratory Studies: Laboratory Tests 10/28/24 Range/Units 23:20 Urine Color Yellow (Yellow) Urine Clarity Sl. Cloudy (Clear) Urine pH 6.0 (5.0 - 8.0) Ur Specific [place] 1.025 (1.002-1.030) Urine Protein 15 H (Negative) mg/dl Urine Glucose (UA) 50 H (Normal) mg/dl Urine Ketones Negative (Negative) mg/dl Urine Occult Blood Negative (Negative) /ul Urine Nitrite Negative (Negative) Urine Bilirubin Negative (Negative) mg/dL Urine Urobilinogen Normal (Normal) mg/dl Ur Leukocyte Esterase Negative (Negative) /ul Vag Amniotic Fld Detect Negative (Negative) Charges/Coding Multi Select Codes Visit Charges Office Visit/Consults: 12027 OV L3 Est 20min Urinary/Genital Urinary/Genital CPT Codes: 76803-07 non-stress test Interp Assessment Plan (1) Uterine cramping: (2) Sterilization: COMMENT: plan BS at csection, 09/24/24 pt has now does not want to have BS (3) Thrombosed external hemorrhoid: COMMENT: s/p draining of hemorrhoid in GS. pt to follow up post for more surgery. (4) Single umbilical artery: COMMENT: twin A (5) Hemorrhoids during : QUALIFIERS: Trimester: second trimester Qualified Code(s): O22.42 - Hemorrhoids in , second trimester (6) Monochorionic diamniotic twin gestation: COMMENT: echo nl, growth q 4 weeks, weekly bpp at 32, deliver 37 (7) AMA (advanced maternal age) multigravida 35+: (8) History of 2 sections: COMMENT: RLTCS with SM 12/10 @ 7:15 (9) Hx of maternal blood transfusion, currently : COMMENT: after (10) Supervision of high-risk : COMMENT: , POORNIMA 12/31/24, boys Rip Rodriguez, Barbie Wero (11) : QUALIFIERS: Weeks of gestation: 30 weeks Qualified Code(s): Z3A.30 - 30 weeks gestation of COMMENT: low risk NIPT, declines carrier testing. anatomy reveiwed (12) Low grade squamous intraepithelial lesion (LGSIL): COMMENT: colposcopy 05/2021:neg. 05/2022:neg pap with positive HPV; rpt pap 2022 negative 10/29/24 0013 Date Fatimah Gibson CNM Cosignkennedy Signature (if applicable): Date CC: MARY JO Gibson; No Primary Care Physician Signed Normal [facility] (ROM) Rupture Of Membraneson 10-28-2024 ROM Negative Normal Negative [facility] Comment on above: Result Comment: Amni otic fluid not present indicates No Rupture of Membranes at time of specimen collection. Performed By: #### L 205.1000 #### [facility] [address] [place], [address] Urinalysis, Routine (Dipstic k)on 10-28-2024 BILIRUBIN URINE Negative Normal Negative [facility] Comment on above: Order Comment: OFELIA CTOR TO SPECIFY Performed By: #### L 400.2010 ####[facility] [address] [place], [address] Clarity (U) Sl. Cloudy Normal Clear [facility] Comment on above: Order Comment: OFELIA CTOR TO SPECIFY Performed By: #### L 400.2010 ####[facility] [address] [place], [address] Color (U) Yellow Normal Yellow [facility] Comment on above: Order Comment: OFELIA CTOR TO SPECIFY Performed By: #### L 400.2010 ####[facility] [address] [place], [address] GLUCOSE, UR 50 mg/dl Abnormal Normal [facility] Comment on above: Order Comment: OFELIA CTOR TO SPECIFY Performed By: #### L 400.2010 ####[facility] [address] [place], [address] KETONE UR Negative Normal Negative [facility] Comment on above: Order Comment: OFELIA CTOR TO SPECIFY Performed By: #### L 400.2010 ####[facility] [address] [place], [address] LEUK ESTERASE Negative Normal Negative [facility] Comment on above: Order Comment: OFELIA CTOR TO SPECIFY Performed By: #### L 400.2010 ####[facility] [address] [place], [address] Nitrite Ql (U) Negative Normal Negative [facility] Comment on above: Order Comment: COLLE CTOR TO SPECIFY Performed By: #### L 400.2010 ####[facility] [address] [place], [address] OCCULT BLOOD-UR Negative Normal Negative [facility] Comment on above: Order Comment: COLLE CTOR TO SPECIFY Performed By: #### L 400.2010 ####[facility] [address] [place], [address] pH UR 6.0 Normal 5.0 - 8.0 [facility] Comment on above: Order Comment: COLLE CTOR TO SPECIFY Performed By: #### L 400.2010 ####[facility] [address] [place], [address] PROT DIPSTX 15 mg/dl Abnormal Negative [facility] Comment on above: Order Comment: COLLE CTOR TO SPECIFY Performed By: #### L 400.2010 ####[facility] [address] [place], [address] SP.GR. DIPSTX 1.025 Normal 1.002-1.030 [facility] Comment on above: Order Comment: COLLE CTOR TO SPECIFY Performed By: #### L 400.2010 ####[facility] [address] [place], [address] UROBILI Normal Normal Normal [facility] Comment on above: Order Comment: COLLE CTOR TO SPECIFY Performed By: #### L 400.2010 ####[facility] [address] [place], [address] CBC W/Diff, Automatedon 11-2 Absolute Lymph 2.00 X10 3/uL Normal 0.83-4.51 [facility] Comment on above: Performed By: #### L 501.4405, L400.0001, L501.0900, L100.0500, L504.2610, L501.1105, L501.1400, L501.4100 #### [facility] [address] [place], [address] Absolute Neut 14.4 X10 3/uL High 2.0-7.7 [facility] Comment on above: Performed By: #### L 501.4405, L400.0001, L501.0900, L100.0500, L504.2610, L501.1105, L501.1400, L501.4100 #### [facility] [address] [place], [address] Basophils/100 WBC (Bld) 0.4 % Normal 0-1 [facility] Comment on above: Performed By: #### L 501.4405, L400.0001, L501.0900, L100.0500, L504.2610, L501.1105, L501.1400, L501.4100 #### [facility] [address] [place], [address] Eosinophils/100 WBC (Bld) 1.9 % Normal 0-5 [facility] Comment on above: Performed By: #### L 501.4405, L400.0001, L501.0900, L100.0500, L504.2610, L501.1105, L501.1400, L501.4100 #### [facility] [address] [place], [address] Erythrocyte distribution width (RBC) [Ratio] 12.5 % Normal 11.6-14.6 [facility] Comment on above: Performed By: #### L 501.4405, L400.0001, L501.0900, L100.0500, L504.2610, L501.1105, L501.1400, L501.4100 #### [facility] [address] [place], [address] Hematocrit (Bld) [Volume fraction] 38.5 % Normal 37-47 [facility] Comment on above: Performed By: #### L 501.4405, L400.0001, L501.0900, L100.0500, L504.2610, L501.1105, L501.1400, L501.4100 #### [facility] [address] [place], [address] Hemoglobin (Bld) [Mass/Vol] 12.9 g/dL Normal 12.0-15.0 [facility] Comment on above: Performed By: #### L 501.4405, L400.0001, L501.0900, L100.0500, L504.2610, L501.1105, L501.1400, L501.4100 #### [facility] [address] [place], [address] IG% 4.000 High 0.0-0.9 [facility] Comment on above: Result Comment: IG% - Immature Granulocytes (promyelocytes, myelocytes and metamyelocytes) > 1% indicates that a LEFT SHIFT is Present. Performed By: #### L 501.4405, L400.0001, L501.0900, L100.0500, L504.2610, L501.1105, L501.1400, L501.4100 #### [facility] [address] [place], [address] Lymphocytes/100 WBC (Bld) 10.5 % Low 19-41 [facility] Comment on above: Performed By: #### L 501.4405, L400.0001, L501.0900, L100.0500, L504.2610, L501.1105, L501.1400, L501.4100 #### [facility] [address] [place], [address] MCH (RBC) [Entitic mass] 31.2 pg Normal 27.0-32.0 [facility] Comment on above: Performed By: #### L 501.4405, L400.0001, L501.0900, L100.0500, L504.2610, L501.1105, L501.1400, L501.4100 #### [facility] [address] [place], [address] MCHC (RBC) [Mass/Vol] 33.5 g/dL Normal 32-36 [facility] Comment on above: Performed By: #### L 501.4405, L400.0001, L501.0900, L100.0500, L504.2610, L501.1105, L501.1400, L501.4100 #### [facility] [address] [place], [address] MCV (RBC) [Entitic vol] 93.0 fL Normal 81-99 [facility] Comment on above: Performed By: #### L 501.4405, L400.0001, L501.0900, L100.0500, L504.2610, L501.1105, L501.1400, L501.4100 #### [facility] [address] [place], [address] Monocytes/100 WBC (Bld) 7.6 % Normal 0-10 [facility] Comment on above: Performed By: #### L 501.4405, L400.0001, L501.0900, L100.0500, L504.2610, L501.1105, L501.1400, L501.4100 #### [facility] [address] [place], [address] Neutrophils/100 WBC (Bld) 75.6 % High 47-70 [facility] Comment on above: Performed By: #### L 501.4405, L400.0001, L501.0900, L100.0500, L504.2610, L501.1105, L501.1400, L501.4100 #### [facility] [address] [place], [address] Nucleated RBC (Bld) [#/Vol] 0 10*3/uL Normal 0-5 [facility] Comment on above: Performed By: #### L 501.4405, L400.0001, L501.0900, L100.0500, L504.2610, L501.1105, L501.1400, L501.4100 #### [facility] [address] [place], [address] Platelet mean volume (Bld) [Entitic vol] 9.8 fL Normal 6.2-12.0 [facility] Comment on above: Performed By: #### L 501.4405, L400.0001, L501.0900, L100.0500, L504.2610, L501.1105, L501.1400, L501.4100 #### [facility] [address] [place], [address] Platelets (Bld) [#/Vol] 220 10*3/uL Normal 150-450 [facility] Comment on above: Performed By: #### L 501.4405, L400.0001, L501.0900, L100.0500, L504.2610, L501.1105, L501.1400, L501.4100 #### [facility] [address] [place], [address] RBC (Bld) [#/Vol] 4.14 10*6/uL Low 4.2-5.4 [facility] Comment on above: Performed By: #### L 501.4405, L400.0001, L501.0900, L100.0500, L504.2610, L501.1105, L501.1400, L501.4100 #### [facility] [address] [place], [address] RDW SD 42.8 fl Normal 35.1-43.9 [facility] Comment on above: Performed By: #### L 501.4405, L400.0001, L501.0900, L100.0500, L504.2610, L501.1105, L501.1400, L501.4100 #### [facility] [address] [place], [address] WBC (Bld) [#/Vol] 19.0 10*3/uL High 4.4-11.0 [facility] Comment on above: Performed By: #### L 501.4405, L400.0001, L501.0900, L100.0500, L504.2610, L501.1105, L501.1400, L501.4100 #### [facility] [address] [place], [address] Public Address Announcer Office Visit Reporton 10-26-2024 Public Address Announcer Office Visit Report [facility]'[address], [address] [place] [address] OFFICE VISIT Date of Service: 10/26/24 MR#: [id number] Acct: [id number] Name: SUSIE LOZANO Rep #: [id number] : 1985 Provider: Dr. Charlene slade MD Age/Sex: 39/F Location: [facility] Status: Signed Intake Vital Signs 07/19/24 09:27 07/19/24 10:06 10/12/24 10:50 10/26/24 11:31 Height 5 ft 7 in 5 ft 7 in 5 ft 7 in 5 ft 7 in Weight: 217 lb 8 oz BMI 34.0 BP 122/80 H Intake Visit Reasons: 30 wk ob *Twins* Onion Tier Required: No Is patient in pain?: No Feel stressed/tense/nervous/anxi ous/difficulty sleeping: not at all Allergies No Known Allergies Allergy (Verified 10/26/24 11:36) Medications ???Medication ???Instructions ???Recorded ???Confirmed ???Type PNV 153-FA 400 mcg-om3 35 mg-dha tab PO 05/18/24 10/26/24 History 25 mg-epa 5 mg-fish oil chew tablet ondansetron HCl 4 mg tablet 4 mg PO Q8H PRN nausea and 05/24/24 10/26/24 Rx vomiting #30 tabs hydrocortisone 1 %-pramoxine 1 % 1 applic MA TID-QID PRN 07/19/24 10/26/24 Rx rectal foam (Proctofoam HC) hemorrhoids #10 grams Last Menstrual Period: 03/26/24 Zika: Zika virus screening: Negative : No Have you fallen in the past year?: No PFSH PFSH Medical History Hemorrhoids during Amenorrhea Psychosomatic pain Pelvic pain Anxiety History of LGSIL (low grade squamous intraepithelial dysplasia) Surgical History H/O breast augmentation H/O foot surgery History of tonsillectomy H/O: Social History adopted: No household members: spouse and children number of children: 3 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 exposures/hazards: No pets and animals: Yes pets and animals: dog(s) history of recent travel: No sexually active: Yes Smoking Status: Never smoker alcohol intake: never substance use type: does not use well-balanced diet: daily or most days caffeine: No eating out: rarely or never during the past year weight has: remained stable what type of physical activity do you participate in: walking and other details: Greysox ball frequency: 1-2 times per week duration: > 90 minutes/day velia/methodist: Pentecostalism seatbelt use: always do you feel safe at home: Yes 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 Date Name GA/Weeks Outcome Route Bth Weight Gen Labor Lgth Anesthesia Del Locatn Provider FOB Unknown 2011 Macy 7 lbs 13 oz Female [facility] Unknown 2014 Rip 9 lbs 1 oz Male [place] 10/13/18 Nicole 39 live - full term 7#13oz Female spinal [place] Delivery Date: 10/13/18 Last Updated by: Bridget Glez rpt cs prior didn't go well HPI 30 wk ob *Twins* Details: SUSIE LOZANO is a 39 year old who presents for routine OB visit. OB Visit POORNIMA Calculator Estimated Delivery Date Method Current WG Current Estimate 12/31/24 LMP (Certain) 30w 4d Other Estimates 12/28/24 Ultrasound #1 31w 0d # 2 Expected Delivery Route/Plan RLTCS with Labor Preferences- CB/BF classes: [] labor support person: [] labor intervention preferences: [] pain management options preferred: [] cut cord/dad catch: [] : [] PP control planned: [] discussed possible routes of delivery and associated risks: [] special requests: [] Specific Issue/Plans Covid status: [] Flu vaccine: [] Tdap vaccine: Rhogam: [] LARC form signed: [] Problem list reviewed and updated with the most current plan of care details and appropriate orders placed. Relevant counseling for the gestational age provided. Continue routine care and follow up unless otherwise noted in visit notes/problem list details Initial Weight: Not Recorded Date -???-???-???-???-???-???-?? ?-???-???-???-???-???- EGA Weight BP Urine Prot -???-???-???-???-???-???-?? ?-???-???-???-???-???- Glucose FHR FuHt Pres Dilation -???-???-???-???-???-???-?? ?-???-???-???-???-???- Effaced St Visit Note 05/24/24 -???-???-???-???-???-???-?? ?-???-???-???-???-???- 8w 3d 169 lb 8 oz 117/77 -???-???-???-???-???-???-?? ?-???-???-???-???-???- A 139 -???-???-???-???-???-???-?? ?-???-???-???-???-???- B 186 A -???-???-???-???-???-???-?? ?-???-???-???-???-???- B -???-???-???-???-???-??? (more content not included)... Normal [facility] CBC W/Diff, Automatedon 11- Absolute Lymph 1.60 X10 3/uL Normal 0.83-4.51 [facility] Comment on above: Performed By: #### L 3890.6005, L509.8000, L100.0100, L501.0250 ####[facility] [address] [place], [address] Absolute Neut 11.0 X10 3/uL High 2.0-7.7 [facility] Comment on above: Performed By: #### L 3890.6005, L509.8000, L100.0100, L501.0250 ####[facility] [address] [place], [address] Basophils/100 WBC (Bld) 0.3 % Normal 0-1 [facility] Comment on above: Performed By: #### L 3890.6005, L509.8000, L100.0100, L501.0250 ####[facility] [address] [place], [address] Eosinophils/100 WBC (Bld) 2.0 % Normal 0-5 [facility] Comment on above: Performed By: #### L 3890.6005, L509.8000, L100.0100, L501.0250 ####[facility] [address] [place], [address] Erythrocyte distribution width (RBC) [Ratio] 12.8 % Normal 11.6-14.6 [facility] Comment on above: Performed By: #### L 3890.6005, L509.8000, L100.0100, L501.0250 ####[facility] [address] [place], [address] Hematocrit (Bld) [Volume fraction] 36.7 % Low 37-47 [facility] Comment on above: Performed By: #### L 3890.6005, L509.8000, L100.0100, L501.0250 ####[facility] [address] [place], [address] Hemoglobin (Bld) [Mass/Vol] 12.7 g/dL Normal 12.0-15.0 [facility] Comment on above: Performed By: #### L 3890.6005, L509.8000, L100.0100, L501.0250 ####[facility] [address] [place], [address] IG% 2.600 High 0.0-0.9 [facility] Comment on above: Result Comment: IG% - Immature Granulocytes (promyelocytes, myelocytes and metamyelocytes) > 1% indicates that a LEFT SHIFT is Present. Performed By: #### L 3890.6005, L509.8000, L100.0100, L501.0250 ####[facility] [address] [place], [address] Lymphocytes/100 WBC (Bld) 11.0 % Low 19-41 [facility] Comment on above: Performed By: #### L 3890.6005, L509.8000, L100.0100, L501.0250 ####[facility] [address] [place], [address] MCH (RBC) [Entitic mass] 32.1 pg High 27.0-32.0 [facility] Comment on above: Performed By: #### L 3890.6005, L509.8000, L100.0100, L501.0250 ####[facility] [address] [place], [address] MCHC (RBC) [Mass/Vol] 34.6 g/dL Normal 32-36 [facility] Comment on above: Performed By: #### L 3890.6005, L509.8000, L100.0100, L501.0250 ####[facility] [address] [place], [address] MCV (RBC) [Entitic vol] 92.7 fL Normal 81-99 [facility] Comment on above: Performed By: #### L 3890.6005, L509.8000, L100.0100, L501.0250 ####[facility] [address] [place], [address] Monocytes/100 WBC (Bld) 8.0 % Normal 0-10 [facility] Comment on above: Performed By: #### L 3890.6005, L509.8000, L100.0100, L501.0250 ####[facility] [address] [place], [address] Neutrophils/100 WBC (Bld) 76.1 % High 47-70 [facility] Comment on above: Performed By: #### L 3890.6005, L509.8000, L100.0100, L501.0250 ####[facility] [address] [place], [address] Nucleated RBC (Bld) [#/Vol] 0 10*3/uL Normal 0-5 [facility] Comment on above: Performed By: #### L 3890.6005, L509.8000, L100.0100, L501.0250 ####[facility] [address] [place], [address] Platelet mean volume (Bld) [Entitic vol] 9.9 fL Normal 6.2-12.0 [facility] Comment on above: Performed By: #### L 3890.6005, L509.8000, L100.0100, L501.0250 ####[facility] [address] [place], [address] Platelets (Bld) [#/Vol] 195 10*3/uL Normal 150-450 [facility] Comment on above: Performed By: #### L 3890.6005, L509.8000, L100.0100, L501.0250 ####[facility] [address] [place], [address] RBC (Bld) [#/Vol] 3.96 10*6/uL Low 4.2-5.4 [facility] Comment on above: Performed By: #### L 3890.6005, L509.8000, L100.0100, L501.0250 ####[facility] [address] [place], [address] RDW SD 43.7 fl Normal 35.1-43.9 [facility] Comment on above: Performed By: #### L 3890.6005, L509.8000, L100.0100, L501.0250 ####[facility] [address] [place], [address] WBC (Bld) [#/Vol] 14.5 10*3/uL High 4.4-11.0 [facility] Comment on above: Performed By: #### L 3890.6005, L509.8000, L100.0100, L501.0250 ####[facility] [id number] [place], [address] Glucose Challenge Gest 1H 50 jose 10-12-2024 GLU GEST 50g 1H 134 mg/dL Normal 70-140 [facility] Comment on above: Performed By: #### L 3890.6005, L509.8000, L100.0100, L501.0250 ####[facility] [id number] [place], [address] HIV - WCHon 10-12-2024 HIV Non-Reactive Normal Nonreactive [facility] Comment on above: Performed By: #### L 3890.6005, L509.8000, L100.0100, L501.0250 ####[facility] [id number] [place], [address] L509.8000on 10-12-2024 Syphilis Abs Non-Reactive Normal [facility] Comment on above: Performed By: #### L 3890.6005, L509.8000, L100.0100, L501.0250 ####[facility] [id number] [place], [address] Public Address Announcer Office Visit Reporton 10-12-2024 Public Address Announcer Office Visit Report [facility]'[address], [address] [place] [address] OFFICE VISIT Date of Service: 10/12/24 MR#: [id number] Acct: [id number] Name: SUSIE LOZANO Rep #: [id number] : 1985 Provider: MARY JO Foley ams Age/Sex: 39/F Location: [facility] Status: Signed Intake Vital Signs 06/09/24 11:11 08/17/24 11:40 09/24/24 12:32 10/12/24 10:50 Height 5 ft 7 in 5 ft 7 in 5 ft 7 in 5 ft 7 in Weight: 209 lb 4 oz BMI 32.8 BP 123/74 H Intake Visit Reasons: 28 WK OB *Twins* Onion Tier Required: No Is patient in pain?: No Feel stressed/tense/nervous/anxi ous/difficulty sleeping: not at all Allergies No Known Allergies Allergy (Verified 10/12/24 10:51) Medications ???Medication ???Instructions ???Recorded ???Confirmed ???Type PNV 153-FA 400 mcg-om3 35 mg-dha tab PO 05/18/24 10/12/24 History 25 mg-epa 5 mg-fish oil chew tablet ondansetron HCl 4 mg tablet 4 mg PO Q8H PRN nausea and 05/24/24 10/12/24 Rx vomiting #30 tabs hydrocortisone 1 %-pramoxine 1 % 1 applic MA TID-QID PRN 07/19/24 10/12/24 Rx rectal foam (Proctofoam HC) hemorrhoids #10 grams Last Menstrual Period: 03/26/24 Zika: Zika virus screening: Negative : No Have you fallen in the past year?: No PFSH PFSH Medical History Hemorrhoids during Amenorrhea Psychosomatic pain Pelvic pain Anxiety History of LGSIL (low grade squamous intraepithelial dysplasia) Surgical History H/O breast augmentation H/O foot surgery History of tonsillectomy H/O: Social History adopted: No household members: spouse and children number of children: 3 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 exposures/hazards: No pets and animals: Yes pets and animals: dog(s) history of recent travel: No sexually active: Yes Smoking Status: Never smoker alcohol intake: never substance use type: does not use well-balanced diet: daily or most days caffeine: No eating out: rarely or never during the past year weight has: remained stable what type of physical activity do you participate in: walking and other details: [place] ball frequency: 1-2 times per week duration: > 90 minutes/day velia/methodist: Pentecostalism seatbelt use: always do you feel safe at home: Yes 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 Date Name GA/Weeks Outcome Route Bth Weight Gen Labor Lgth Anesthesia Del Locatn Provider FOB Unknown 2011 Macy 7 lbs 13 oz Female [facility] Unknown 2014 Rip 9 lbs 1 oz Male [place] 10/13/18 Nicole 39 live - full term 7#13oz Female spinal [place] Delivery Date: 10/13/18 Last Updated by: Bridget Glez rpt cs prior didn't go well HPI 28 WK OB *Twins* Details: SUSIE VELÁZQUEZ is a 39 year old who presents for routine OB visit. OB Visit POORNIMA Calculator Estimated Delivery Date Method Current WG Current Estimate 12/31/24 LMP (Certain) 28w 4d Other Estimates 12/28/24 Ultrasound #1 29w 0d # 2 Expected Delivery Route/Plan RLTCS with Labor Preferences- CB/BF classes: [] labor support person: [] labor intervention preferences: [] pain management options preferred: [] cut cord/dad catch: [] : [] PP control planned: [] discussed possible routes of delivery and associated risks: [] special requests: [] Specific Issue/Plans Covid status: [] Flu vaccine: [] Tdap vaccine: Rhogam: [] LARC form signed: [] Problem list reviewed and updated with the most current plan of care details and appropriate orders placed. Relevant counseling for the gestational age provided. Continue routine care and follow up unless otherwise noted in visit notes/problem list details Initial Weight: Not Recorded Date -???-???-???-???-???-???-?? ?-???-???-???-???-???- EGA Weight BP Urine Prot -???-???-???-???-???-???-?? ?-???-???-???-???-???- Glucose FHR FuHt Pres Dilation -???-???-???-???-???-???-?? ?-???-???-???-???-???- Effaced St Visit Note 05/24/24 -???-???-???-???-???-???-?? ?-???-???-???-???-???- 8w 3d 169 lb 8 oz 117/77 -???-???-???-???-???-???-?? ?-???-???-???-???-???- A 139 -???-???-???-???-???-???-?? ?-???-???-???-???-???- B 186 A -???-???-???-???-???-???-?? ?-???-???-???-???-???- B -???-???-???-???-???-???-?? ?-?? (more content not included)... Normal [facility] Public Address Announcer Office Visit Reporton 09-14-2024 Public Address Announcer Office Visit Report [facility] [address], [address] [place] [address] OFFICE VISIT Date of Service: 09/14/24 MR#: [id number] Acct: [id number] Name: SUSIE VELÁZQUEZ Rep #: [id number] : 1985 Provider: Dr. Charlene slade MD Age/Sex: 39/F Location: [facility] Status: Signed Intake Vital Signs 06/09/24 11:11 08/17/24 11:40 09/14/24 12:29 Height 5 ft 7 in 5 ft 7 in 5 ft 7 in Weight: 202 lb BMI 31.6 BP 117/78 Intake Visit Reasons: 22 WK OB*twins* Onion Tier Required: No Is patient in pain?: No Allergies No Known Allergies Allergy (Verified 09/14/24 12:33) Medications ???Medication ???Instructions ???Recorded ???Confirmed ???Type PNV 153-FA 400 mcg-om3 35 mg-dha tab PO 05/18/24 09/14/24 History 25 mg-epa 5 mg-fish oil chew tablet ondansetron HCl 4 mg tablet 4 mg PO Q8H PRN nausea and 05/24/24 09/14/24 Rx vomiting #30 tabs hydrocortisone 1 %-pramoxine 1 % 1 applic MA TID-QID PRN 07/19/24 09/14/24 Rx rectal foam (Proctofoam HC) hemorrhoids #10 grams Last Menstrual Period: 03/26/24 Zika: Zika virus screening: Negative : No Have you fallen in the past year?: No PFSH PFSH Medical History Hemorrhoids during Amenorrhea Psychosomatic pain Pelvic pain Anxiety History of LGSIL (low grade squamous intraepithelial dysplasia) Surgical History H/O breast augmentation H/O foot surgery History of tonsillectomy H/O: Social History adopted: No household members: spouse and children number of children: 3 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 exposures/hazards: No pets and animals: Yes pets and animals: dog(s) history of recent travel: No sexually active: Yes Smoking Status: Never smoker alcohol intake: never substance use type: does not use well-balanced diet: daily or most days caffeine: No eating out: rarely or never during the past year weight has: remained stable what type of physical activity do you participate in: walking and other details: [place] ball frequency: 1-2 times per week duration: > 90 minutes/day velia/methodist: Pentecostalism seatbelt use: always do you feel safe at home: Yes 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 Date Name GA/Weeks Outcome Route Bth Weight Infant Gen Labor Lgth Anesthesia Del Locatn Provider FOB Unknown 2011 Macy 7 lbs 13 oz Female [facility] Unknown 2014 Rip 9 lbs 1 oz Male [place] 10/13/18 Nicole 39 live - full term 7#13oz Female spinal [place] Delivery Date: 10/13/18 Last Updated by: Bridget Glez rpt cs prior didn't go well HPI 22 WK OB*twins* Details: SUSIE VELÁZQUEZ is a 39 year old who presents for routine OB visit. OB Visit POORNIMA Calculator Estimated Delivery Date Method Current WG Current Estimate 12/31/24 LMP (Certain) 24w 4d Other Estimates 12/28/24 Ultrasound #1 25w 0d # 2 Expected Delivery Route/Plan RLTCS with Labor Preferences- CB/BF classes: [] labor support person: [] labor intervention preferences: [] pain management options preferred: [] cut cord/dad catch: [] : [] PP control planned: [] discussed possible routes of delivery and associated risks: [] special requests: [] Specific Issue/Plans Covid status: [] Flu vaccine: [] Tdap vaccine: Rhogam: [] LARC form signed: [] Problem list reviewed and updated with the most current plan of care details and appropriate orders placed. Relevant counseling for the gestational age provided. Continue routine care and follow up unless otherwise noted in visit notes/problem list details Initial Weight: Not Recorded Date -???-???-???-???-???-???-?? ?-???-???-???-???-???- EGA Weight BP Urine Prot -???-???-???-???-???-???-?? ?-???-???-???-???-???- Glucose FHR FuHt Pres Dilation -???-???-???-???-???-???-?? ?-???-???-???-???-???- Effaced St Visit Note 05/24/24 -???-???-???-???-???-???-?? ?-???-???-???-???-???- 8w 3d 169 lb 8 oz 117/77 -???-???-???-???-???-???-?? ?-???-???-???-???-???- A 139 -???-???-???-???-???-???-?? ?-???-???-???-???-???- B 186 A -???-???-???-???-???-???-?? ?-???-???-???-???-???- B -???-???-???-???-???-???-?? ?-???-???-???-???-???- A -???-???-???-???-???-???-?? ?-???-???-???-???-???- B A JV- twin gestati (more content not included)... Normal [facility] Public Address Announcer Office Visit Reporton 08-17-2024 Public Address Announcer Office Visit Report [facility] [address], [address] [place] [address] OFFICE VISIT Date of Service: 08/17/24 MR#: [id number] Acct: [id number] Name: SUSIE VELÁZQUEZ Rep #: [id number] : 1985 Provider: Dr. Shaila Ny DO Age/Sex: 38/F Location: [facility] Status: Signed Intake Vital Signs 06/09/24 11:11 08/05/24 14:45 08/17/24 11:40 Height 5 ft 7 in 5 ft 7 in 5 ft 7 in Weight: 191 lb BMI 29.9 BP 119/76 Intake Visit Reasons: 18 WK OB Onion Tier Required: No Is patient in pain?: No Allergies No Known Allergies Allergy (Verified 08/17/24 11:45) Medications ???Medication ???Instructions ???Recorded ???Confirmed ???Type PNV 153-FA 400 mcg-om3 35 mg-dha tab PO 05/18/24 08/17/24 History 25 mg-epa 5 mg-fish oil chew tablet ondansetron HCl 4 mg tablet 4 mg PO Q8H PRN nausea and 05/24/24 08/17/24 Rx vomiting #30 tabs hydrocortisone 1 %-pramoxine 1 % 1 applic MA TID-QID PRN 07/19/24 08/17/24 Rx rectal foam (Proctofoam HC) hemorrhoids #10 grams Last Menstrual Period: 03/26/24 Zika: Zika virus screening: Negative : No PFSH PFSH Medical History Hemorrhoids during Amenorrhea Psychosomatic pain Pelvic pain Anxiety History of LGSIL (low grade squamous intraepithelial dysplasia) Surgical History H/O breast augmentation H/O foot surgery History of tonsillectomy H/O: Social History adopted: No household members: spouse and children number of children: 3 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 exposures/hazards: No pets and animals: Yes pets and animals: dog(s) history of recent travel: No sexually active: Yes Smoking Status: Never smoker alcohol intake: never substance use type: does not use well-balanced diet: daily or most days caffeine: No eating out: rarely or never during the past year weight has: remained stable what type of physical activity do you participate in: walking and other details: [place] ball frequency: 1-2 times per week duration: > 90 minutes/day velia/methodist: Pentecostalism seatbelt use: always do you feel safe at home: Yes 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 Date Name GA/Weeks Outcome Route Bth Weight Gen Labor Lgth Anesthesia Del Locatn Provider FOB Unknown 2011 Amcy 7 lbs 13 oz Female [facility] Unknown 2014 Rip 9 lbs 1 oz Male [place] 10/13/18 Nicole 39 live - full term 7#13oz Female spinal [place] Delivery Date: 10/13/18 Last Updated by: Bridget Glez rpt cs prior didn't go well HPI 18 WK OB Details: SUSIE VELÁZQUEZ is a 38 year old who presents for routine OB visit. OB Visit POORNIMA Calculator Estimated Delivery Date Method Current WG Current Estimate 12/31/24 LMP (Certain) 20w 4d Other Estimates 12/28/24 Ultrasound #1 21w 0d # 2 Expected Delivery Route/Plan RLTCS Labor Preferences- CB/BF classes: [] labor support person: [] labor intervention preferences: [] pain management options preferred: [] cut cord/dad catch: [] : [] PP control planned: [] discussed possible routes of delivery and associated risks: [] special requests: [] Specific Issue/Plans Covid status: [] Flu vaccine: [] Tdap vaccine: [] Rhogam: [] LARC form signed: [] Problem list reviewed and updated with the most current plan of care details and appropriate orders placed. Relevant counseling for the gestational age provided. Continue routine care and follow up unless otherwise noted in visit notes/problem list details Initial Weight: Not Recorded Date -???-???-???-???-???-???-?? ?-???-???-???-???-???- EGA Weight BP Urine Prot -???-???-???-???-???-???-?? ?-???-???-???-???-???- Glucose FHR FuHt Pres Dilation -???-???-???-???-???-???-?? ?-???-???-???-???-???- Effaced St Visit Note 05/24/24 -???-???-???-???-???-???-?? ?-???-???-???-???-???- 8w 3d 169 lb 8 oz 117/77 -???-???-???-???-???-???-?? ?-???-???-???-???-???- A 139 -???-???-???-???-???-???-?? ?-???-???-???-???-???- B 186 A -???-???-???-???-???-???-?? ?-???-???-???-???-???- B -???-???-???-???-???-???-?? ?-???-???-???-???-???- A -???-???-???-???-???-???-?? ?-???-???-???-???-???- B A JV- twin gestation p resent. suspect mono/di but we discussed gen (more content not included)... Normal [facility] Surgery Visit Reporton 08-05 Surgery Visit Report [facility] [address] [place] [address] OFFICE VISIT Date of Service: 08/05/24 MR#: [id number] Acct: [id number] Name: SUSIE VELÁZQUEZ Rep #: [id number] : 1985 Provider: GHASSAN kumar Age/Sex: 38/F Location: [facility] Status: Signed Intake Vital Signs 07/19/24 10:06 08/05/24 14:45 Height 5 ft 7 in 5 ft 7 in Weight: 187 lb 4 oz BMI 29.3 BP 137/96 H Blood Pressure Location Rt brachial Position Sitting Respiration 18 Pulse 97 Pulse Source Monitor Temp 97.3 F L Temp Source Temporal Pulse Oximetry (%) 97 Oxygen Delivery Method room air Intake Visit Reasons: THROMBOSED HEMORRHOIDS Chief Complaint: Hemorrhoids Onion Tier Required: No Is patient in pain?: Yes Allergies No Known Allergies Allergy (Verified 08/05/24 14:46) Medications ???Medication ???Instructions ???Recorded ???Confirmed ???Type PNV 153-FA 400 mcg-om3 35 mg-dha tab PO 05/18/24 08/05/24 History 25 mg-epa 5 mg-fish oil chew tablet ondansetron HCl 4 mg tablet 4 mg PO Q8H PRN nausea and 05/24/24 08/05/24 Rx vomiting #30 tabs hydrocortisone 1 %-pramoxine 1 % 1 applic MA TID-QID PRN 07/19/24 08/05/24 Rx rectal foam (Proctofoam HC) hemorrhoids #10 grams PFSH Medical History (Updated 08/09/24 @ 14:08 by Nessa RODRIGUEZ, PAParishC) Hemorrhoids during Amenorrhea Psychosomatic pain Pelvic pain Anxiety History of LGSIL (low grade squamous intraepithelial dysplasia) Surgical History H/O breast augmentation H/O foot surgery History of tonsillectomy H/O: Social History adopted: No household members: spouse and children number of children: 3 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 exposures/hazards: No pets and animals: Yes pets and animals: dog(s) history of recent travel: No sexually active: Yes Smoking Status: Never smoker alcohol intake: never substance use type: does not use well-balanced diet: daily or most days caffeine: No eating out: rarely or never during the past year weight has: remained stable what type of physical activity do you participate in: walking and other details: volley ball frequency: 1-2 times per week duration: > 90 minutes/day velia/methodist: Pentecostalism seatbelt use: always do you feel safe at home: Yes 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 Patient notes she has been dealing with hemorrhoids for 12 years now. She notes painful hemorrhoids. She notes her stool has been soft. She states she had noted bleeding while using the toilet 2 weeks ago. She notes that she had moderate amount of clots within the toilet. 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 She is also in the process of moving to [place] ad will be looking for a nursing job down there after she delivers the twins. She is approximately 17 weeks with twin boys. ROS General General: No weight change, appetite, fatigue, colon cancer, breast cancer or weakness HEENT HEENT: No difficulty swallowing, eye injury, eye surgery, swollen glands or hoarseness Endo Endocrine: No thyroid disease, diabetes mellitus, thyroid cancer, Hair loss, heat intolerance or cold intolerance Skin Skin: No rash or changing moles Breast Breast: No left breast lump, right breast lump, nipple discharge, breast pain, abnormal mammogram, abnormal US or breast enlargement Musc Musculoskeletal: No back problems, arthritis, rheumatoid arthritis, gout or joint pain Cardio Cardiovascular: No murmur, pacemaker, heart disease, atrial fibrillation, high blood pressure, heart attack, heart stent, palpitations, shortness of breat with exertion or chest pain Psych Psychiatric: No depression, anxiety or hearing voices Resp Respiratory: No shortness of breath, No sleep apnea, No cough, No COPD, No asthma, No emphysema and No wheezing Gastro Gastrointestinal: No abdominal pain, No nausea or vomiting, No diarrhea, No constipation, No blood in stool, No acid reflux, Yes hemorrhoids, No ulcers, No gallbladder problem and No black,tarry stools Tyler Hematologic: No blood thinners, No blood disorders, No bleeding, No anemia and No blood clots Neuro Neurologic: No system reviewed and no additional complaints, except as documented, No as per HPI, No abnormal gait, No abnormal hearing, No abnormal movements, No abnormal speech, No behavioral changes, No burning sensations, No confusion, No convulsions, No disequilibrium, No dizzines (more content not included)... Normal [facility] Public Address Announcer Office Visit Reporton 07-19-2024 Public Address Announcer Office Visit Report [facility] [address], [address] [place] [address] OFFICE VISIT Date of Service: 07/19/24 MR#: [id number] Acct: [id number] Name: SUSIE VELÁZQUEZ Rep #: [id number] : 1985 Provider: Dr. Shaila Ny, Age/Sex: 38/F Location: [facility] Status: Signed Intake Vital Signs 06/09/24 11:11 07/19/24 09:25 07/19/24 09:27 Height 5 ft 7 in 5 ft 7 in 5 ft 7 in Weight: 182 lb 8 oz BMI 28.5 BP 112/75 Intake Visit Reasons: 14 WK OB Onion Tier Required: No Is patient in pain?: No Allergies No Known Allergies Allergy (Verified 07/19/24 09:25) Medications ???Medication ???Instructions ???Recorded ???Confirmed ???Type PNV 153-FA 400 mcg-om3 35 mg-dha tab PO 05/18/24 07/19/24 History 25 mg-epa 5 mg-fish oil chew tablet ondansetron HCl 4 mg tablet 4 mg PO Q8H PRN nausea and 05/24/24 07/19/24 Rx vomiting #30 tabs hydrocortisone 1 %-pramoxine 1 % 1 applic MA TID-QID PRN 07/19/24 07/19/24 Rx rectal foam (Proctofoam HC) hemorrhoids #10 grams Last Menstrual Period: 03/26/24 Zika: Zika virus screening: Negative : No PFSH PFSH Medical History Amenorrhea Psychosomatic pain Pelvic pain Anxiety History of LGSIL (low grade squamous intraepithelial dysplasia) Surgical History H/O breast augmentation H/O foot surgery History of tonsillectomy H/O: Social History adopted: No household members: spouse and children number of children: 3 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 exposures/hazards: No pets and animals: Yes pets and animals: dog(s) history of recent travel: No sexually active: Yes Smoking Status: Never smoker alcohol intake: never substance use type: does not use well-balanced diet: daily or most days caffeine: No eating out: rarely or never during the past year weight has: remained stable what type of physical activity do you participate in: walking and other details: volley ball frequency: 1-2 times per week duration: > 90 minutes/day velia/methodist: Pentecostalism seatbelt use: always do you feel safe at home: Yes 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 Date Name GA/Weeks Outcome Route Bth Weight Infant Gen Labor Lgth Anesthesia Del Locatn Provider FOB Unknown 2011 Macy 7 lbs 13 oz Female [facility] Unknown 2014 Rip 9 lbs 1 oz Male [place] 10/13/18 Nicole 39 live - full term 7#13oz Female spinal [place] Delivery Date: 10/13/18 Last Updated by: Bridget Glez rpt cs prior didn't go well HPI 14 WK OB Details: SUSIE VELÁZQUEZ is a 38 year old who presents for routine OB visit. OB Visit POORNIMA Calculator Estimated Delivery Date Method Current WG Current Estimate 12/31/24 LMP (Certain) 16w 3d Other Estimates 12/28/24 Ultrasound #1 16w 6d # 2 Expected Delivery Route/Plan RLTCS Labor Preferences- CB/BF classes: [] labor support person: [] labor intervention preferences: [] pain management options preferred: [] cut cord/dad catch: [] : [] PP control planned: [] discussed possible routes of delivery and associated risks: [] special requests: [] Specific Issue/Plans Covid status: [] Flu vaccine: [] Tdap vaccine: [] Rhogam: [] LARC form signed: [] Problem list reviewed and updated with the most current plan of care details and appropriate orders placed. Relevant counseling for the gestational age provided. Continue routine care and follow up unless otherwise noted in visit notes/problem list details Initial Weight: Not Recorded Date -???-???-???-???-???-???-?? ?-???-???-???-???-???- EGA Weight BP Urine Prot -???-???-???-???-???-???-?? ?-???-???-???-???-???- Glucose FHR FuHt Pres Dilation -???-???-???-???-???-???-?? ?-???-???-???-???-???- Effaced St Visit Note 05/24/24 -???-???-???-???-???-???-?? ?-???-???-???-???-???- 8w 3d 169 lb 8 oz 117/77 -???-???-???-???-???-???-?? ?-???-???-???-???-???- A 139 -???-???-???-???-???-???-?? ?-???-???-???-???-???- B 186 A -???-???-???-???-???-???-?? ?-???-???-???-???-???- B -???-???-???-???-???-???-?? ?-???-???-???-???-???- A -???-???-???-???-???-???-?? ?-???-???-???-???-???- B A JV- twin gestation p resent. suspect mono/di but we discussed genetic test and MFM will tel (more content not included)... Normal [facility] Progress Noteon 06-22-2024 Manager [employer]ental Authentication Interface Message Text Maternal Medicine Consult Date of Service: 06/22/2024 Referring Provider: Charlene Sands Primary Care Provider: [facility], MD Francis Reason for Consult: Dr. Charlene Sands requests that Susie be evaluated due to diagnosis of monochorionic diamniotic (MC/DI) twin . Susie is a 38 y.o. at 12w4d gestation who presents for evaluation of MC/DI twin . She is here with her significant other and her two youngest children. She has known since 8 weeks GA and reports no concerns today HPI OB History Para Term AB Living 6 3 3 0 2 3 SAB IAB Ectopic Multiple Live Births 2 0 0 0 2 # Outcome Date GA Lbr Hari/2nd Weight Sex Type Anes PTL Lv 6 Current 5 Term 10/13/19 39w0d 3.544 kg F CS-LTranv Spinal N VITALY 4 Term 04/10/15 41w0d 4.111 kg M Comments: hemorrhage, 4 degree tear 3 2013 2 SAB 2012 1 Term 02/17/12 3.544 kg F CS-LTranv VITALY Comments: oligo; breech Past Medical History: Diagnosis Date Encounter for blood transfusion 2014 post Vaginal Pap smear, abnormal abnormal years ago but normal since Past Surgical History: Procedure Laterality Date BREAST ENHANCEMENT SURGERY BUNIONECTOMY SECTION, LOW TRANSVERSE TONSILLECTOMY Allergies Allergen Reactions Hydromorphone Nausea And Vomiting Social History Socioeconomic History Marital status: Spouse name: None Number of children: None Years of education: None Highest education level: None Tobacco Use Smoking status: Never Smokeless tobacco: Never Substance and Sexual Activity Alcohol use: Not Currently Drug use: Never Infections Live with someone with or exposed to TB No History of STI's Rash or viral illness since last menstruation No 2nd STI GBS 3rd STI Hx of Chicken Pox Yes Other infections Partner has hx of genital herpes No Genetics Age is > than 35y as of estimated date Yes Thalassemia No Neural Tube Defect No Congenital Heart Defect No Down Syndrome No Matthias-Sachs No Aspen Disease No Sickle Cell Disease or Trait No Hemophilia, Thrombophilia No Muscular Dystrophy No Cystic Fibrosis No Andres's Chorea No Intellectual Disability/Autism No Metabolic Disorder No Recurrent Loss, or a Stillbirth Yes Inherited Genetic or Chromosomal Disorder Yes FOB's cousin with chromosomal disorder Illicit; Rec.drugs; Alcohol since last menses No Family History Problem Relation Age of Onset Colon Cancer Maternal Grandmother Outpatient Encounter Medications as of 06/22/2024 Medication Sig Dispense Refill ondansetron (ZOFRAN) 4 MG tablet Take 1 Tablet (4 mg) by mouth every 8 hours as needed Xlgdlbwf-Zeb-Gz-FA (PRE- FORMULA PO) Take by mouth No facility-administered encounter medications on file as of 06/22/2024. Review of Systems negative Physical Exam Vitals: 06/22/24 0948 BP: 118/60 Pulse: 68 Resp: 18 Vitals: 06/22/24 0948 Weight: 78.8 kg (173 lb 11.2 oz) Height: 170.2 cm Body mass index is 27.21 kg/m . Gen very pleasant family Laboratory Test Results: Reviewed labs from her records Ultrasound Results: - Please see Ultrasound test for full details. 1. Monochorionic diamniotic twin gestation at 12w 4d with an POORNIMA of 12/31/2024. 2. [place] rump length measurement are consistent with supplied dating. 3. Fetus 1: First trimester nuchal translucency measured 1.70mm Fetus 2: First trimester nuchal translucency measured 1.6mm Suspected SUA Twin B other first trimester anatomy seen and normal with intertwin membrane visualized today 4. The nuchal translucency appeared normal for this gestational age. Assessment/Plan: Susie Velázquez is a 38 y.o. at 12w4d with: Active Non-Hospital Problems Diagnosis Date Noted Monochorionic diamniotic twin gestation in first trimester 06/22/2024 Priority: High Spontaneous twins FOB first MFM consult on 06/22/24 Low risk NIPT both male See recommendations Recommend early GCT Recommend bASA daily starting prior to 16 weeks [place] History of delivery affecting 06/22/2024 G1/G3 had with G2 and PPH didn't go well Plans on RCD Multigravida of advanced maternal age in first trimester 06/22/2024 Normal NIPT did not do carrier screening first for both, would offer Horizon with OB History of hemorrhage, currently 06/22/2024 G2 at the time of RH positive and negative antibody screen History of macrosomia in in prior , currently 06/22/2024 G2 recommend early GCT given AMA and twins Single umbilical artery, maternal, antepartum 06/22/2024 Twin B suspected on early anatomy Consultation performed today for Monochorionic diamniotic twins The findings on ultrasound today are consistent with a monochorionic twin . Both NT early were normal and the mason (more content not included)... Normal [facility] Public Address Announcer Office Visit Reporton 06-09-2024 Public Address Announcer Office Visit Report [facility] [address] [place], [place] [address] OFFICE VISIT Date of Service: 06/09/24 MR#: [id number] Acct: [id number] Name: SUSIE VELÁZQUEZ Rep #: [id number] : 1985 Provider: Dr. Charlene slade MD Age/Sex: 38/F Location: [facility] Status: Signed Intake Vital Signs 05/24/24 10:40 06/09/24 11:09 06/09/24 11:11 Height 5 ft 7 in 5 ft 7 in 5 ft 7 in Weight: 170 lb BMI 26.6 BP 116/78 Intake Visit Reasons: 10 Wk Onion Tier Required: No Is patient in pain?: No Allergies No Known Allergies Allergy (Verified 06/09/24 11:09) Medications ???Medication ???Instructions ???Recorded ???Confirmed ???Type PNV 153-FA 400 mcg-om3 35 mg-dha tab PO 05/18/24 06/09/24 History 25 mg-epa 5 mg-fish oil chew tablet ondansetron HCl 4 mg tablet 4 mg PO Q8H PRN nausea and 05/24/24 06/09/24 Rx vomiting #30 tabs Last Menstrual Period: 03/26/24 Zika: Zika virus screening: Negative : No Have you fallen in the past year?: No PFSH PFSH Medical History Amenorrhea Psychosomatic pain Pelvic pain Anxiety History of LGSIL (low grade squamous intraepithelial dysplasia) Surgical History H/O breast augmentation H/O foot surgery History of tonsillectomy H/O: Social History adopted: No household members: spouse and children number of children: 3 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 exposures/hazards: No pets and animals: Yes pets and animals: dog(s) history of recent travel: No sexually active: Yes Smoking Status: Never smoker alcohol intake: never substance use type: does not use well-balanced diet: daily or most days caffeine: No eating out: rarely or never during the past year weight has: remained stable what type of physical activity do you participate in: walking and other details: volley ball frequency: 1-2 times per week duration: > 90 minutes/day velia/methodist: Pentecostalism seatbelt use: always do you feel safe at home: Yes 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 Date Name GA/Weeks Outcome Route Bth Weight Gen Labor Lgth Anesthesia Del Locatn Provider FOB Unknown 2011 Macy 7 lbs 13 oz Female [facility] Unknown 2014 Rip 9 lbs 1 oz Male [place] 10/13/18 [place] 39 live - full term 7#13oz Female spinal [place] Delivery Date: 10/13/18 Last Updated by: Bridget Glez rpt cs prior didn't go well HPI 10 Wk Details: SUSIE VELÁZQUEZ is a 38 year old who presents for routine OB visit. OB Visit POORNIMA Calculator Estimated Delivery Date Method Current WG Current Estimate 12/31/24 LMP (Certain) 10w 5d Other Estimates 12/28/24 Ultrasound #1 11w 1d # 2 Expected Delivery Route/Plan RLTCS Labor Preferences- CB/BF classes: [] labor support person: [] labor intervention preferences: [] pain management options preferred: [] cut cord/dad catch: [] : [] PP control planned: [] discussed possible routes of delivery and associated risks: [] special requests: [] Specific Issue/Plans Covid status: [] Flu vaccine: [] Tdap vaccine: [] Rhogam: [] LARC form signed: [] Problem list reviewed and updated with the most current plan of care details and appropriate orders placed. Relevant counseling for the gestational age provided. Continue routine care and follow up unless otherwise noted in visit notes/problem list details Initial Weight: Not Recorded Date -???-???-???-???-???-???-?? ?-???-???-???-???-???- EGA Weight BP Urine Prot -???-???-???-???-???-???-?? ?-???-???-???-???-???- Glucose FHR FuHt Pres Dilation -???-???-???-???-???-???-?? ?-???-???-???-???-???- Effaced St Visit Note 05/24/ -???-???-???-???-???-???-?? ?-???-???-???-???-???- 8w 3d 169 lb 8 oz 117/77 -???-???-???-???-???-???-?? ?-???-???-???-???-???- A 139 -???-???-???-???-???-???-?? ?-???-???-???-???-???- B 186 A -???-???-???-???-???-???-?? ?-???-???-???-???-???- B -???-???-???-???-???-???-?? ?-???-???-???-???-???- A -???-???-???-???-???-???-?? ?-???-???-???-???-???- B A JV- twin gestation p resent. suspect mono/di but we discussed genetic test and MFM will tell best. RTO in 2-3 weeks for heart tones. -???-???-???-???-???-???-?? ?-???-???-???-???-???- B 06/09 (more content not included)... Normal [facility] CBC W/Diff, Automatedon 07-0 5-2023 Absolute Lymph 1.87 X10 3/uL Normal 0.83-4.51 [facility] Comment on above: Performed By: #### L 501.4405, L400.0001, L501.0900, L100.0500, L504.2610, L501.1105, L501.1400, L501.4100 #### [facility] [address] [place], [address] Absolute Neut 10.2 X10 3/uL High 2.0-7.7 [facility] Comment on above: Performed By: #### L 501.4405, L400.0001, L501.0900, L100.0500, L504.2610, L501.1105, L501.1400, L501.4100 #### [facility] [address] [place], [address] Basophils/100 WBC (Bld) 0.4 % Normal 0-1 [facility] Comment on above: Performed By: #### L 501.4405, L400.0001, L501.0900, L100.0500, L504.2610, L501.1105, L501.1400, L501.4100 #### [facility] [address] [place], [address] Eosinophils/100 WBC (Bld) 1.6 % Normal 0-5 [facility] Comment on above: Performed By: #### L 501.4405, L400.0001, L501.0900, L100.0500, L504.2610, L501.1105, L501.1400, L501.4100 #### [facility] [address] [place], [address] Erythrocyte distribution width (RBC) [Ratio] 12.5 % Normal 11.6-14.6 [facility] Comment on above: Performed By: #### L 501.4405, L400.0001, L501.0900, L100.0500, L504.2610, L501.1105, L501.1400, L501.4100 #### [facility] [address] [facility] [place] [place], [address] Hematocrit (Bld) [Volume fraction] 39.2 % Normal 37-47 [facility] Comment on above: Performed By: #### L 501.4405, L400.0001, L501.0900, L100.0500, L504.2610, L501.1105, L501.1400, L501.4100 #### [facility] [address] [facility] [place], [address] Hemoglobin (Bld) [Mass/Vol] 13.2 g/dL Normal 12.0-15.0 [facility] Comment on above: Performed By: #### L 501.4405, L400.0001, L501.0900, L100.0500, L504.2610, L501.1105, L501.1400, L501.4100 #### [facility] [address] [facility] [place], [address] IG% 0.600 Normal 0.0-0.9 [facility] Comment on above: Result Comment: IG% - Immature Granulocytes (promyelocytes, myelocytes and metamyelocytes) > 1% indicates that a LEFT SHIFT is Present. Performed By: #### L 501.4405, L400.0001, L501.0900, L100.0500, L504.2610, L501.1105, L501.1400, L501.4100 #### [facility] [address] [facility] [place], [address] Lymphocytes/100 WBC (Bld) 13.9 % Low 19-41 [facility] Comment on above: Performed By: #### L 501.4405, L400.0001, L501.0900, L100.0500, L504.2610, L501.1105, L501.1400, L501.4100 #### [facility] [address] [place], [address] MCH (RBC) [Entitic mass] 30.6 pg Normal 27.0-32.0 [facility] Comment on above: Performed By: #### L 501.4405, L400.0001, L501.0900, L100.0500, L504.2610, L501.1105, L501.1400, L501.4100 #### [facility] [address] [facility] [place], [address] MCHC (RBC) [Mass/Vol] 33.7 g/dL Normal 32-36 [facility] Comment on above: Performed By: #### L 501.4405, L400.0001, L501.0900, L100.0500, L504.2610, L501.1105, L501.1400, L501.4100 #### [facility] [address] [place], [address] MCV (RBC) [Entitic vol] 90.7 fL Normal 81-99 [facility] Comment on above: Performed By: #### L 501.4405, L400.0001, L501.0900, L100.0500, L504.2610, L501.1105, L501.1400, L501.4100 #### [facility] [address] [place], [address] Monocytes/100 WBC (Bld) 7.7 % Normal 0-10 [facility] Comment on above: Performed By: #### L 501.4405, L400.0001, L501.0900, L100.0500, L504.2610, L501.1105, L501.1400, L501.4100 #### [facility] [address] [place], [address] Neutrophils/100 WBC (Bld) 75.8 % High 47-70 [facility] Comment on above: Performed By: #### L 501.4405, L400.0001, L501.0900, L100.0500, L504.2610, L501.1105, L501.1400, L501.4100 #### [facility] [address] [place], [address] Nucleated RBC (Bld) [#/Vol] 0 10*3/uL Normal 0-5 [facility] Comment on above: Performed By: #### L 501.4405, L400.0001, L501.0900, L100.0500, L504.2610, L501.1105, L501.1400, L501.4100 #### [facility] [address] [facility] [place], [address] Platelet mean volume (Bld) [Entitic vol] 10.1 fL Normal 6.2-12.0 [facility] Comment on above: Performed By: #### L 501.4405, L400.0001, L501.0900, L100.0500, L504.2610, L501.1105, L501.1400, L501.4100 #### [facility] [address] [place], [address] Platelets (Bld) [#/Vol] 265 10*3/uL Normal 150-450 [facility] Comment on above: Performed By: #### L 501.4405, L400.0001, L501.0900, L100.0500, L504.2610, L501.1105, L501.1400, L501.4100 #### [facility] [address] [place], [address] RBC (Bld) [#/Vol] 4.32 10*6/uL Normal 4.2-5.4 [facility] Comment on above: Performed By: #### L 501.4405, L400.0001, L501.0900, L100.0500, L504.2610, L501.1105, L501.1400, L501.4100 #### [facility] [address] [place], [address] RDW SD 41.1 fl Normal 35.1-43.9 [facility] Comment on above: Performed By: #### L 501.4405, L400.0001, L501.0900, L100.0500, L504.2610, L501.1105, L501.1400, L501.4100 #### [facility] [address] [place], [address] WBC (Bld) [#/Vol] 13.4 10*3/uL High 4.4-11.0 [facility] Comment on above: Performed By: #### L 501.4405, L400.0001, L501.0900, L100.0500, L504.2610, L501.1105, L501.1400, L501.4100 #### [facility] [address] [place], [address] HIV - WCHon 06-04-2024 HIV Non-Reactive Normal Nonreactive [facility] Comment on above: Order Comment: Reaso n for Exam: Performed By: #### L 501.4405, L400.0001, L501.0900, L100.0500, L504.2610, L501.1105, L501.1400, L501.4100 #### [facility] [address] [place], [address] Hepatitis B Surface Antigeno n 06-04-2024 HEP B Surf Ag Non-Reactive Normal Nonreactive [facility] Comment on above: Order Comment: Reaso n for Exam: Performed By: #### L 501.4405, L400.0001, L501.0900, L100.0500, L504.2610, L501.1105, L501.1400, L501.4100 #### [facility] [address] [place], [place], [id number] Hepatitis C Antibodyon 06-04 Hepatitis C AB Non-Reactive Normal Nonreactive [facility] Comment on above: Order Comment: Reaso n for Exam: Result Comment: Non Reactive: < 0.8 Equivocal: >/= 0.8 to < 1.0 Reactive: >/= 1.[address] [facility] requires that a reactive/equivocal HCV antibody result be sent out for confirmation. HCV Quant by PCR testing. Performed By: #### L 501.4405, L400.0001, L501.0900, L100.0500, L504.2610, L501.1105, L501.1400, L501.4100 #### [facility] [address] [place], [address] L509.8000on 06-04-2024 Syphilis Abs Non-Reactive Normal [facility] Comment on above: Order Comment: Reaso n for Exam: Performed By: #### L 501.4405, L400.0001, L501.0900, L100.0500, L504.2610, L501.1105, L501.1400, L501.4100 #### [facility] [address] [place], [address] NATERAon 06-04-2024 NATURA SEE SCANNED REPORT Normal [facility] Comment on above: Order Comment: Comme nts: NIPT only, with gender Performed By: #### L 501.4405, L400.0001, L501.0900, L100.0500, L504.2610, L501.1105, L501.1400, L501.4100 #### [facility] [address] [place], [address] Rubella IgGon 06-04-2024 Rubella IgG Reactive Normal Nonreactive [facility] Comment on above: Order Comment: Reaso n for Exam: Result Comment: Anti body Results Interpretation of Immune Status Non Reactive Presumed Non-Immune Equivocal Equivocal Reactive Presumed Immune Performed By: #### L 501.4405, L400.0001, L501.0900, L100.0500, L504.2610, L501.1105, L501.1400, L501.4100 #### [facility] [address] [place], [address] Type AND Screenon 06-04-2024 Ab SCREEN GEL Negative Normal [facility] Comment on above: Order Comment: PN Performed By: #### L 501.4405, L400.0001, L501.0900, L100.0500, L504.2610, L501.1105, L501.1400, L501.4100 #### [facility] [address] [place], [address] Chlamydia/GC JEB aptimaon CHLAMY,NUC ACID Negative Normal Negative [facility] Comment on above: Performed By: #### M 100.2200, L7000.1800 ####[facility] [address] [place], [address] GC BY NUC ACID Negative Normal Negative [facility] Comment on above: Result Comment: Perf ormed at: =G - [facility] [address] [id number] Roll Changer: Key Mulligan MD, Phone: [phone] Performed By: #### M 100.2200, L7000.1800 ####[facility] [address] [place], [address] Urine Cultureon 05-25-2024 URC Culture exhibits no growth. Normal [facility] Comment on above: Performed By: #### M 100.2200, L7000.1800 ####[facility] [address] [place], [address] Public Address Announcer Office Visit Reporton 05-24-2024 Public Address Announcer Office Visit Report [facility] [address] [place] [address] OFFICE VISIT Date of Service: 05/24/24 MR#: [id number] Acct: [id number] Name: SUSIE VELÁZQUEZ Rep #: [id number] : 1985 Provider: Dr. Shaila Ny DO Age/Sex: 38/F Location: [facility] Status: Signed Intake Vital Signs 07/28/23 12:53 05/24/24 10:40 05/24/24 10:40 Height 5 ft 7 in 5 ft 7 in 5 ft 7 in Weight: 169 lb 8 oz BMI 26.5 BP 117/77 Intake Visit Reasons: NOB LMP 03/26 Onion Tier Required: No Is patient in pain?: No Allergies No Known Allergies Allergy (Verified 05/24/24 10:40) Medications ???Medication ???Instructions ???Recorded ???Confirmed ???Type PNV 153-FA 400 mcg-om3 35 mg-dha tab PO 05/18/24 05/24/24 History 25 mg-epa 5 mg-fish oil chew tablet ondansetron HCl 4 mg tablet 4 mg PO Q8H PRN nausea and 05/24/24 05/24/24 Rx vomiting #30 tabs Last Menstrual Period: 03/26/24 Zika: Zika virus screening: Negative : No PFSH PFSH Medical History Amenorrhea Psychosomatic pain Pelvic pain Anxiety History of LGSIL (low grade squamous intraepithelial dysplasia) Surgical History H/O breast augmentation H/O foot surgery History of tonsillectomy H/O: Social History adopted: No household members: spouse and children number of children: 3 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 exposures/hazards: No pets and animals: Yes pets and animals: dog(s) history of recent travel: No sexually active: Yes Smoking Status: Never smoker alcohol intake: never substance use type: does not use well-balanced diet: daily or most days caffeine: No eating out: rarely or never during the past year weight has: remained stable what type of physical activity do you participate in: walking and other details: volley ball frequency: 1-2 times per week duration: > 90 minutes/day velia/methodist: Pentecostalism seatbelt use: always do you feel safe at home: Yes 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 Date Name GA/Weeks Outcome Route Bth Weight Gen Labor Lgth Anesthesia Del Locatn Provider FOB Unknown 2011 Macy 7 lbs 13 oz Female [facility] Unknown 2014 Rip 9 lbs 1 oz Male [place] 10/13/18 [place] 39 live - full term 7#13oz Female spinal [place] Delivery Date: 10/13/18 Last Updated by: Bridget Glez rpt cs prior didn't go well HPI NOB LMP 03/26 Details: SUSIE VELÁZQUEZ is a 38 year old who presents for New OB visit. OB Visit POORNIMA Calculator Estimated Delivery Date Method Current WG Current Estimate 12/31/24 LMP (Certain) 8w 3d Other Estimates 12/28/24 Ultrasound #1 8w 6d # 2 Comments: HIV: Urine Culture: Sequential Screen: NIPT Screen: Estimated Due Date: 12/31/24 Expected Delivery Route/Plan Labor Preferences- CB/BF classes: [] labor support person: [] labor intervention preferences: [] pain management options preferred: [] cut cord/dad catch: [] : [] PP control planned: [] discussed possible routes of delivery and associated risks: [] special requests: [] Specific Issue/Plans Covid status: [] Flu vaccine: [] Tdap vaccine: [] Rhogam: [] LARC form signed: [] Problem list reviewed and updated with the most current plan of care details and appropriate orders placed. Relevant counseling for the gestational age provided. Continue routine care and follow up unless otherwise noted in visit notes/problem list details Initial Weight: Not Recorded Date -???-???-???-???-???-???-?? ?-???-???-???-???-???- EGA Weight BP Urine Prot -???-???-???-???-???-???-?? ?-???-???-???-???-???- Glucose FHR FuHt Pres Dilation -???-???-???-???-???-???-?? ?-???-???-???-???-???- Effaced St Visit Note 05/24/ -???-???-???-???-???-???-?? ?-???-???-???-???-???- 8w 3d 169 lb 8 oz 117/77 -???-???-???-???-???-???-?? ?-???-???-???-???-???- A 139 -???-???-???-???-???-???-?? ?-???-???-???-???-???- B 186 A -???-???-???-???-???-???-?? ?-???-???-???-???-???- B -???-???-???-???-???-???-?? ?-???-???-???-???-???- A -???-???-???-???-???-???-?? ?-???-???-???-???-???- B A JV- twin gestation p resent. suspect mono/di but we discussed genetic test and MFM will tell best. RTO in 2-3 week (more content not included)... Normal [facility] Absolute lymphocyte countOrd ered By: Dr. Luis on 03-04-2023 Lymphocytes Auto (Unsp spec) [#/Vol] 2.13 10*3/uL 0.83-4.51 [facility] Basophil percentageOrdered B y: Dr. Luis on 03-04-2023 Basophils/100 WBC (Bld) 1.1 % 0-1 [facility] Chloride [Moles/Vol] 111 mmol/L 98-107 [facility] Eosinophils/100 WBC (Bld) 11.5 % 0-5 [facility] Glucose [Mass/Vol] 96 mg/dL 74-106 [facility] Neutrophils (Bld) [#/Vol] 4.1 10*3/uL 2.0-7.7 [facility] Neutrophils/100 WBC (Bld) 52.0 % 47-70 [facility] Potassium [Moles/Vol] 3.7 mmol/L 3.5-5.1 [facility] Sodium [Moles/Vol] 140 mmol/L 136-145 [facility] WBC (Bld) [#/Vol] 7.9 10*3/uL 4.4-11.0 [facility] Blood erythrocytes count (nu mber/volume)Ordered By: Dr. Luis on 03-04-2023 RBC (Bld) [#/Vol] 4.38 10*6/uL 4.2-5.4 [facility] Blood hemoglobin measurement (mass/volume)Ordered By: Dr. Luis on 03-04-2023 Hemoglobin (Bld) [Mass/Vol] 13.5 g/dL 12.0-15.0 [facility] Blood lymphocytes/100 leukoc ytesOrdered By: Dr. Luis on 03-04-2023 Lymphocytes/100 WBC (Bld) 27.0 % 19-41 [facility] Blood monocytes/100 leukocyt esOrdered By: Dr. Luis on 03-04-2023 Monocytes/100 WBC (Bld) 8.1 % 0-10 [facility] Blood platelet mean volumeOr dered By: Dr. Luis on 03-04-2023 Platelet mean volume (Bld) [Entitic vol] 10.3 fL 6.2-12.0 [facility] Determination of erythrocyte mean corpuscular volume (MCV)Ordered By: Dr. Luis on 03-04-2023 MCV (RBC) [Entitic vol] 89.0 fL 81-99 [facility] Hematocrit Auto (Bld) [Volum e fraction]Ordered By: Dr. Luis on 03-04-2023 Hematocrit (Bld) [Volume fraction] 39.0 % 37-47 [facility] - Chemistry and C hemistry - challengeOrdered By: Dr. Luis on 03-04-2023 CO2 [Moles/Vol] 26.0 mmol/L 21.0-32.0 [facility] Urea nitrogen/Creatinine [Mass ratio] 13.3 mg/mg 10-20 [facility] - Hematology and Cell countsOrdered By: Dr. Luis on 03-04-2023 Erythrocyte distribution width (RBC) [Entitic vol] 40.7 fL 35.1-43.9 [facility] Erythrocyte distribution width (RBC) [Ratio] 12.4 % 11.6-14.6 [facility] Immature granulocytes/100 WBC (Bld) 0.300 % 0.0-0.9 [facility] Comment on above: IG% - Immature Granu locytes (promyelocytes, myelocytes and metamyelocytes) > 1% indicates that a LEFT SHIFT is Present. MCH (RBC) [Entitic mass] 30.8 pg 27.0-32.0 [facility] Nucleated RBC/100 WBC (Bld) [Ratio] 0 % 0-5 [facility] MCHC Auto (RBC) [Mass/Vol]Or dered By: Dr. Luis on 03-04-2023 MCHC (RBC) [Mass/Vol] 34.6 g/dL 32-36 [facility] No Panel InformationOrdered By: Dr. Luis on 03-04-2023 D-Dimer Quantitative (PE/DVT) 0.36 FEU/ug/m 0.27-0.49 [facility] Comment on above: NORMAL D-Dimer level (<0.50) indicates no DVT or PE. Estimated Creatinine Clearance Calc 93.12 ml/min [facility] Estimated GFR (MDRD) Amer 101 mL/min >60 [facility] Comment on above: GFR Calc Estimated GFR (MDRD) Non-Af Amer 84 mL/min >60 [facility] Comment on above: Non- GFR Calc Platelets bldOrdered By: Dr. Luis on 03-04-2023 Platelets (Bld) [#/Vol] 303 10*3/uL 150-450 [facility] Serum or plasma calcium mason urement (mass/volume)Ordered By: Dr. Luis on 03-04-2023 Calcium [Mass/Vol] 8.8 mg/dL 8.5-10.1 [facility] Serum or plasma creatinine m easurement (mass/volume)Ordered By: Dr. Luis on 03-04-2023 Creatinine [Mass/Vol] 0.82 mg/dL 0.55-1.02 [facility] Comment on above: The validity of the calculated GFR & GFRAA in patients over 70 years has not been determined. Clinical correlation is essential. Serum or plasma urea nitroge n measurement (mass/volume)Ordered By: Dr. Luis on 03-04-2023 Urea nitrogen [Mass/Vol] 11 mg/dL 7-18 [facility] Thin prep Papanicolaou smear with manual screeningOrdered By: Dr. Luis on 03-04-2023 Thin prep Papanicolaou smear with manual screening 3 5-15 [facility] Operative Reporton 3 Operative Report [facility] [address] [place], [place] [address] RECORD OF PROCEDURE PATIENT NAME: SUSIE VELÁZQUEZ DATE OF : 1985 MED REC #: [id number] PT LOCATION: OR PACU PT TYPE: OPS AGE: 37 SEX: F ADMISSION DATE: 02/05/2023 DATE OF SERVICE: 02/05/2023 SURGEON: Arik Gonzalez DPM 1ST MANAGER CLIENT SERVICE: Jessica Rios DPM, PGY2 ANESTHESIA: Local with sedation including 10 mL of 50:50 mix of 1% lidocaine and 0.25% Marcaine plain. HEMOSTASIS: Calf tourniquet set at 250 mmHg. ESTIMATED BLOOD LOSS: Less than 10 mL MATERIALS: Included 4-0 nylon. SPECIMENS: None. COMPLICATIONS: None. DISPOSITION: Patient stable to PACU with vital signs stable and vascular status intact. INDICATIONS FOR PROCEDURE: The patient presented to the office of Dr. Gonzalez with complaints of pain and callus under the 2nd metatarsal of the left foot. X-ray showed prominence of left metatarsal head phalangeally which was clinically relevant as well. The patient failed conservative treatment as well as pads, repeat treatments and shoe-gear changes. We discussed surgical intervention with the patient including all risks, benefits, alternatives and complications including but not limited to infection, delayed healing, nonhealing, of metatarsal, delayed union, nonunion, recurrence of deformity, possible need for further surgery and anesthesia-related risks. Patient demonstrated understanding and agreed to proceed with surgery. PREPROCEDURE DIAGNOSIS: Left 2nd metatarsal deformity. POSTPROCEDURE DIAGNOSIS: Left 2nd metatarsal deformity. NAME OF PROCEDURE: Minimally invasive osteotomy of the left 2nd metatarsal. DESCRIPTION OF PROCEDURE: The patient was seen in the preoperative holding area. The chart was reviewed, and the patient was examined. All questions were answered to patients satisfaction. We discussed again the risks, benefits, alternatives and complications of surgery. The patient demonstrated understanding and agreed to proceed with surgery. Consent form was reviewed and signed by the patient. The patient was then transported to the OR and placed on the OR table in supine position. IV sedation was obtained, and a tourniquet was placed around the lower left calf but not inflated at this time. A local block of the left 2nd metatarsal was performed using 10 mL of 50:50 mix of 1% lidocaine and 0.25% Marcaine plane. The foot was then prepped and draped in usual sterile fashion. The foot was exsanguinated with an Esmarch bandage and elevated, and the tourniquet was inflated to 250 mmHg. Attention was directed to the dorsal aspect of the 2nd metatarsal where, under guidance of C-arm, a stab incision was made at the metatarsal neck using a [place] blade. The Arthrex MIS shauna was introduced, and position of the shauna was confirmed in multiple planes using fluoroscopy. The shauna was passed from distal plantar and medial to proximal, dorsal and lateral including a [id number] osteotomy of the 2nd metatarsal neck, taking care to avoid violating the condyles of the 2nd metatarsal head. Completion of osteotomy was confirmed using fluoroscopic guidance. The incision was flushed with copious amounts of normal sterile saline. No fixation was required for this osteotomy. The incision was closed with 4-0 nylon. Dressing of Xeroform, 4 x 4's, Kerlix and a Coban was applied. Patient tolerated surgery and anesthesia well without any complications. Neurovascular was maintained to all aspects of the left foot. Patient was transported from the OR to the PACU with vital signs stable and vascular status intact. Patient was given postoperative instructions in both written and verbal form before and after the procedure. Patient will follow up with Dr. Gonzalez in his office within 1 week of surgery for further treatment. Dr. Gonzalez performed all critical and significant portions of the procedure; however, the resident performed simple tasks such as closure under the direct supervision of the attending physician. DICTATED BY: Jessica Rios DPM Arik Gonzalez DPM /[id number] [facility] File#: [id number] CC: Arik Gonzalez DPM CC: Jessica Rios DPM [facility] Basic Metabolic Panelon 01-02 Anion gap [Moles/Vol] 6 mmol/L Low 8-15 [facility] Comment on above: Performed By: #### B MP #### [facility] [address] [place] [address] 68588 Calcium [Mass/Vol] 9.5 mg/dL Normal 8.6-10.6 [facility] Comment on above: Performed By: #### B MP #### [facility] [address] [place] [address] 61426 Chloride [Moles/Vol] 106 mmol/L Normal 98-107 [facility] Comment on above: Performed By: #### B MP #### [facility] [address] [place] [address] 30160 CO2 [Moles/Vol] 26 mmol/L Normal 22-29 [facility] Comment on above: Performed By: #### B MP #### [facility] [address] [place] [address] 93953 Creatinine [Mass/Vol] 0.9 mg/dL Normal 0.5-1.2 [facility] Comment on above: Performed By: #### B MP #### [facility] [address] [place] [address] 44359 eGFR -Amer >=60 Normal >=60 [facility] Comment on above: Performed By: #### B MP #### [facility] [address] [place] [address] 04015 GFR/1.73 sq M.predicted among non-blacks MDRD (S/P/Bld) [Vol rate/Area] mL/min/{1.73_m2} Normal >=60 [facility] Comment on above: Performed By: #### B MP #### [facility] [address] [place] [address] 67967 Glucose [Mass/Vol] 57 mg/dL Low 74-109 [facility] Comment on above: Performed By: #### B MP #### [facility] [address] [place] [address] 92973 Potassium [Moles/Vol] 4.1 mmol/L Normal 3.4-5.1 [facility] Comment on above: Performed By: #### B MP #### [facility] [address] [place] [address] 56686 Sodium [Moles/Vol] 138 mmol/L Normal 136-145 [facility] Comment on above: Performed By: #### B MP #### [facility] [address] [place] [address] 84201 Urea nitrogen [Mass/Vol] 15 mg/dL Normal 6-23 [facility] Comment on above: Performed By: #### B MP #### [facility] [address] [place] [address] 08793 CBC with Diffon 01-22-2023 BA# 0.1 x(10)3/cumm Normal 0.0-0.1 [facility] Comment on above: Performed By: #### C BCDIFF #### [facility] [address] [place] [address] 72871 Basophils/100 WBC (Bld) 0.9 % Normal 0.0-1.0 [facility] Comment on above: Performed By: #### C BCDIFF #### [facility] [address] [place] [address] 49281 EO# 0.4 x(10)3/cumm Normal 0.0-0.4 [facility] Comment on above: Performed By: #### C BCDIFF #### [facility] [address] [place] [address] 23734 Eosinophils/100 WBC (Bld) 5.3 % Normal 0.0-6.1 [facility] Comment on above: Performed By: #### C BCDIFF #### [facility] [address] [place] [address] 85576 Erythrocyte distribution width (RBC) [Ratio] 13.2 % Normal 11.1-15.3 [facility] Comment on above: Performed By: #### C BCDIFF #### [facility] [address] [place] [address] 77413 Hematocrit (Bld) [Volume fraction] 40.2 % Normal 34.6-45.0 [facility] Comment on above: Performed By: #### C BCDIFF #### [facility] [address] [place] [address] 23809 Hemoglobin (Bld) [Mass/Vol] 13.4 g/dL Normal 11.5-15.5 [facility] Comment on above: Performed By: #### C BCDIFF #### [facility] [address] [place] [address] 72150 LY# 1.9 x(10)3/cumm Normal 0.8-2.9 [facility] Comment on above: Performed By: #### C BCDIFF #### [facility] [address] [place] [address] 42275 Lymphocytes/100 WBC (Bld) 27.4 % Normal 12.2-42.6 [facility] Comment on above: Performed By: #### C BCDIFF #### [facility] [address] [place] [address] 02723 MCH (RBC) [Entitic mass] 30.4 pg Normal 27.2-33.6 [facility] Comment on above: Performed By: #### C BCDIFF #### [facility] [address] [place] [address] 65385 MCHC (RBC) [Mass/Vol] 33.4 g/dL Normal 32.9-35.3 [facility] Comment on above: Performed By: #### C BCDIFF #### [facility] [address] [place] [address] 13476 MCV (RBC) [Entitic vol] 90.8 fL Normal 81.3-96.7 [facility] Comment on above: Performed By: #### C BCDIFF #### [facility] [address] [place] [address] 19827 MO# 0.7 x(10)3/cumm Normal 0.2-0.8 [facility] Comment on above: Performed By: #### C BCDIFF #### [facility] [address] [place] [address] 70271 Monocytes/100 WBC (Bld) 9.9 % Normal 3.3-11.6 [facility] Comment on above: Performed By: #### C BCDIFF #### [facility] [address] [place] [address] 19994 NE# 3.8 x(10)3/cumm Normal 1.3-7.4 [facility] Comment on above: Performed By: #### C BCDIFF #### [facility] [address] [place] [address] 01062 Neutrophils/100 WBC (Bld) 56.5 % Normal 44.9-78.8 [facility] Comment on above: Performed By: #### C BCDIFF #### [facility] [address] [place] [address] 21754 Platelet mean volume (Bld) [Entitic vol] 8.7 fL Normal 6.4-10.0 [facility] Comment on above: Performed By: #### C BCDIFF #### [facility] [address] [place] [address] PLT 252 x(10)3/cumm Normal 138-367 [facility] Comment on above: Performed By: #### C BCDIFF #### [facility] [address] [place] [address] Plt Morph Normal [facility] Comment on above: Performed By: #### C BCDIFF #### [facility] [address] [place] [address] RBC 4.43 X(10)6/cumm Normal 3.90-5.10 [facility] Comment on above: Performed By: #### C BCDIFF #### [facility] [address] [place] [address] RBC Morph cont Normal [facility] Comment on above: Performed By: #### C BCDIFF #### [facility] [address] [place] [address] RBC morphology finding Nom (Bld) [facility] Comment on above: Performed By: #### C BCDIFF #### [facility] [address] [place] [address] WBC 6.8 x(10)3/cumm Normal 3.6-10.3 [facility] Comment on above: Performed By: #### C BCDIFF #### [facility] [address] [place], [place] [id number] WBC Morph Normal [facility] Comment on above: Performed By: #### C BCDIFF #### [facility] [address] [place] [address] Culture, urineOrdered By: Brittaney Loving on 11-28-2022 Bacteria identified Cx Nom (U) Positive [facility] Basophil percentageOrdered B y: Chinyere Loving on 11-26-2022 Basophil percentage 25-50 SEEN /hpf 0-5 [facility] Bilirubin Test strip Ql (U)O rdered By: Chinyere Loving on 11-26-2022 Bilirubin Ql (U) Negative Negative [facility] Ketones Test strip Ql (U)Ord ered By: Chinyere Loving on 11-26-2022 Ketones Ql (U) 5 mg/dl Negative [facility] Mucus LM Ql (Urine sed)Order ed By: Chinyere Loving on 11-26-2022 Mucus Ql (Urine sed) 1+ /hpf [facility] Nitrite Test strip Ql (U)Ord ered By: Chinyere Loving on 11-26-2022 Nitrite Ql (U) Negative Negative [facility] Protein Test strip Ql (U)Ord ered By: Chinyere Loving on 11-26-2022 Protein Ql (U) 15 mg/dl Negative [facility] Squamous epithelial cells de tection in urine sediment by light microscopyOrdered By: Chinyere Loving on 11-26-2022 Epithelial cells.squamous LM Ql (Urine sed) 5-10 SEEN /hpf 5-10 [facility] Urine blood detectionOrdered By: Chinyere Loving on 11-26-2022 RBC Ql (U) Negative Negative [facility] RBC Ql (U) 0 SEEN /hpf 0-5 [facility] Urine clarityOrdered By: Deacon Loving on 11-26-2022 Clarity (U) Sl. Cloudy Clear [facility] Urine color determinationOrd ered By: Chinyere Loving on 11-26-2022 Color (U) Yellow Yellow [facility] Urine glucose detectionOrder ed By: Chinyere Loving on 11-26-2022 Glucose Ql (U) Normal mg/dl Normal [facility] Urine leukocyte esterase det ection by dipstickOrdered By: Chinyere Loving on 11-26-2022 Leukocyte esterase Test strip Ql (U) 500 /ul Negative [facility] Urine pHOrdered By: Ra Loving on 11-26-2022 pH (U) 6.5 [pH] 5.0 - 8.0 [facility] Urine sediment bacteria coun t by microscopy (number/high power field)Ordered By: Chinyere Loving on 11-26-2022 Bacteria LM.HPF (Urine sed) [#/Area] 1 /[HPF] None Seen [facility] Urine specific gravity measu rementOrdered By: Chinyere Loving on 11-26-2022 Specific gravity (U) [Rel density] 1.015 1.002-1.030 [facility] Urobilinogen Auto test strip Ql (U)Ordered By: Chinyere Loving on 11-26-2022 Urobilinogen Ql (U) Normal mg/dl Normal [facility] US PELVIC TRANSABDOMINAL AND TRANSVAGINAL WITH COLOR FLOWon 11-25-2022 US PELVIC TRANSABDOMINAL AND TRANSVAGINAL WITH COLOR FLOW EXAMINATION: TRANSABDOMINAL AND TRANSVAGINAL PELVIC ULTRASOUND WITH DOPPLER 11/25/2022 TECHNIQUE: Transabdominal and transvaginal pelvic duplex ultrasound using B-mode/anderson scaled imaging and Doppler spectral analysis and color flow was obtained. COMPARISON: None HISTORY: ORDERING SYSTEM PROVIDED HISTORY: pain; TECHNOLOGIST PROVIDED HISTORY: Illness/Other Acuity: Acute Reason for Exam: pelvic pain Cancer History: Surgery, Radiation History: Type of Encounter: Initial Additional signs and symptoms: FINDINGS: Measurements: Uterus: 8.4 x 3.1 x 5.6 cm Endometrial stripe: 3 mm Right Ovary: 2.4 x 2.3 x 2.1 cm Left Ovary: 3.9 x 1.6 x 1.7 cm Ultrasound Findings: Uterus: Uterus demonstrates normal myometrial echotexture. Endometrial stripe: Endometrial stripe is within normal limits. Right Ovary: Right ovary is within normal limits. There is normal arterial and venous Doppler flow. Left Ovary: Left ovary is within normal limits. There is normal arterial and venous Doppler flow. Free Fluid: No evidence of free fluid. IMPRESSION: Unremarkable pelvic ultrasound. Normal Doppler flow within the ovaries. Workstation ID: [id number] Dictated by: BRITTON DUNLAP on FriNov 25, 2022 6:51:01 PM EST Transcribed by: BRITTON DUNLAP on FriNov 25, 2022 6:51:01 PM EST Finalized by: BRITTON DUNLAP on FriNov 25, 2022 6:51:01 PM EST Normal [facility] Comment on above: Order Comment: Injur y/Trauma or Illness?:Illness/Other How long have you had these symptoms (acute/chronic)?:Acute Reason for exam?:pelvic pain History of cancer?: Surgeries, chemotherapy, or radiation?: Type of Exam?:Initial Additional signs and symptoms?: CORONAVIRUS 2019 BY PCRon CORONAVIRUS 2019,PCR NOT DETECTED Normal Not Detected [facility] Comment on above: Result Comment: . This assay is designed to detect the N, ORF1ab and/or S genes of SARS-CoV-2 via nucleic acid amplification. A Negative (NOT DETECTED) result does not preclude 2019-nCoV infection since the adequacy of sample collection and/or low viral burden may result in presence of viral nucleic acids below the clinical sensitivity of this test method. Negative (NOT DETECTED) result should not be used as the sole basis for treatment or other patient management decisions. Rather negative results should be combined with clinical observations, patient history, and epidemiological information to make patient management decisions. Fact sheet for providers: https://www.fda.gov/media/037857/download Fact sheet for patients: https://www.fda.gov/media/617824/download This test has received FDA Emergency Use Authorization (EUA) and has been verified by [facility] ([facility]). This test is only authorized for the duration of time that circumstances exist to justify the authorization of the emergency use of in vitro diagnostic tests for the detection of SARS-CoV-2 virus and/or diagnosis of COVID-19 infection under section 564(b)(1) of the Act, 21 U.S.C. 360bbb-3(b)(1), unless the authorization is terminated or revoked sooner. [facility] is certified under CLIA-88 as qualified to perform high complexity testing. Testing is performed in the [facility] laboratories located at [address] [place] [address]. Performed By: #### C OV19 #### [place] [address] CORONAVIRUS 2019 BY PCRon EMPLOYED IN HEALTHCARE? No Normal [facility] Comment on above: Performed By: #### C OV19 #### [place] [address] FIRST COVID NASAL SWAB TEST? No Normal [facility] Comment on above: Performed By: #### C OV19 #### [place] [address] HOSPITALIZED (OR PLANNED TO BE ADMITTED)? No Normal [facility] Comment on above: Performed By: #### C OV19 #### [facility] [address] [place] [address] ICU? No Normal [facility] Comment on above: Performed By: #### C OV19 #### [facility] [address] [place] [address] ? No Normal [facility] Comment on above: Performed By: #### C OV19 #### [facility] [address] [place] [id number] RESIDENT IN CONGREGATE CARE SETTING? No Normal [facility] Comment on above: Performed By: #### C OV19 #### [facility] [address] [place] [address] SYMPTOMATIC DEFINED BY CDC? No Normal [facility] Comment on above: Performed By: #### C OV19 #### [facility] [address] [place] [address] Lab Specimen Source Nasal, Nasopharyngeal Normal [facility] Comment on above: Performed By: #### C OV19 #### [facility] [address] [place] [address] [facility] Surgical Pathology Depar tmenton 07-14-2020 [facility] Surgical Pathology Department Name SUSIE VELÁZQUEZ Pathologist: TRESSA CRESPO MD Date of Procedure: 07/14/2020 Date Received: 07/17/2020 Date Reported 07/24/2020 Submitting Physician: ARIK GONZALEZ II, DPM Location: [facility] Copy To/Referring/Attending: Pt States No PCP Other External # [id number] FINAL DIAGNOSIS A. NEUROMA LEFT FOOT: -- NEUROMA. Electronically Signed Out By TRESSA CRESPO MD/GLORIA By the signature on this report, the individual or group listed as making the Final Interpretation/Diagnosis certifies that they have reviewed this case. Clinical History: neuroma left foot Specimens Submitted As: A: NEUROMA LEFT FOOT Other Case Numbers [id number] Gross Description: Received in formalin, labeled with the patient's name and hospital number and neuroma left foot, is a segment of soft, fibrous tissue measuring 1.7 x 1.5 x 0.9 cm. The specimen is serially sectioned and submitted entirely in one cassette. [facility] lmp07/19/2020 Normal [facility] Comment on above: Performed By: #### U HCS #### [facility] Surgical Pathology Department [address] [place] [address] CORONAVIRUS 2019 BY PCRon CORONAVIRUS 2019,PCR NOT DETECTED Normal Not Detected [facility] Comment on above: Result Comment: This assay is designed to detect the ORF1ab and/or S genes of SARS-CoV-2 via nucleic acid amplification. A Not Detected result does not preclude 2019-nCoV infection since the adequacy of sample collection and/or low viral burden may result in presence of viral nucleic acids below the clinical sensitivity of this test method. Fact sheet for providers: www.fda.gov/media/185376/download Fact sheet for patients: www.fda.gov/media/585053/download This test has received FDA Emergency Use Authorization (EUA) and has been verified by [facility] ([facility]). This test is only authorized for the duration of time that circumstances exist to justify the authorization of the emergency use of in vitro diagnostic tests for the detection of SARS-CoV-2 virus and/or diagnosis of COVID-19 infection under section 564(b)(1) of the Act, 21 U.S.C. 360bbb-3(b)(1), unless the authorization is terminated or revoked sooner. [facility] is certified under CLIA-88 as qualified to perform high complexity testing. Testing is performed in the [facility] laboratories located at [address] [place] [address]. Performed By: #### C OV19 #### [place] [address] CORONAVIRUS 2019 BY PCRon Lab Specimen Source Nasal, Nasopharyngeal Normal [facility] Comment on above: Performed By: #### C OV19 #### [place] [address] Vital Signs Date Time Vital Sign Value Performing Clinician Facility 05-13-2025 13:36-0400 Body height 170.18 cm No Primary Care Physician [facility] 05-13-2025 13:36-0400 Body mass index (BMI) [Ratio] 27.3 kg/m2 No Primary Care Physician [facility] 05-13-2025 13:36-0400 Body weight 79.37 kg No Primary Care Physician [facility] 05-13-2025 13:36-0400 Diastolic blood pressure 77 mm[Hg] No Primary Care Physician [facility] 05-13-2025 13:36-0400 Heart rate 86 /min No Primary Care Physician [facility] 05-13-2025 13:36-0400 Respiratory rate 17 /min No Primary Care Physician [facility] 05-13-2025 13:36-0400 SaO2% (BldA) [Mass fraction] 99 % No Primary Care Physician [facility] 05-13-2025 13:36-0400 Systolic blood pressure 118 mm[Hg] No Primary Care Physician [facility] 01-26-2025 13:08-0500 Body mass index (BMI) [Ratio] 30.3 kg/m2 No Primary Care Physician [facility] 01-26-2025 13:08-0500 Body weight 87.77 kg No Primary Care Physician [facility] 01-26-2025 13:08-0500 Diastolic blood pressure 81 mm[Hg] No Primary Care Physician [facility] 01-26-2025 13:08-0500 Systolic blood pressure 119 mm[Hg] No Primary Care Physician [facility] 03-04-2023 10:35-0400 Body temperature 98.3 [degF] No Primary Care Physician [facility] 03-04-2023 10:35-0400 Diastolic blood pressure 93 mm[Hg] No Primary Care Physician [facility] 03-04-2023 10:35-0400 Heart rate 71 /min No Primary Care Physician [facility] 03-04-2023 10:35-0400 Respiratory rate 16 /min No Primary Care Physician [facility] 03-04-2023 10:35-0400 SaO2% (BldA) [Mass fraction] 100 % No Primary Care Physician [facility] 03-04-2023 10:35-0400 Systolic blood pressure 128 mm[Hg] No Primary Care Physician [facility] 03-04-2023 09:05-0400 Body height 170.18 cm No Primary Care Physician [facility] 03-04-2023 09:05-0400 Body mass index (BMI) [Ratio] 23.5 kg/m2 No Primary Care Physician [facility] 03-04-2023 09:05-0400 Body weight 68.17 kg No Primary Care Physician [facility] 02-27-2023 16:56-0400 Body temperature 98.24 [degF] BRANDT FREEMAN MD [facility] 02-27-2023 16:56-0400 Body weight 68.2 kg BRANDT FREEMAN MD [facility] 02-27-2023 16:56-0400 Diastolic Blood Pressure Non-Invasive 71 1 BRANDT FREEMAN MD [facility] 02-27-2023 16:56-0400 Heart rate 70 /min BRANDT FREEMAN MD [facility] 02-27-2023 16:56-0400 Respiratory rate 18 /min BRANDT FREEMAN MD [facility] 02-27-2023 16:56-0400 Systolic Blood Pressure Non-Invasive 112 1 BRANDT FREEMAN MD [facility] 12-12-2022 08:56-0500 Body mass index (BMI) [Ratio] 25.7 kg/m2 No Primary Care Physician [facility] 12-12-2022 08:56-0500 Body weight 74.61 kg No Primary Care Physician [facility] 12-12-2022 08:56-0500 Diastolic blood pressure 79 mm[Hg] No Primary Care Physician [facility] 12-12-2022 08:56-0500 Systolic blood pressure 125 mm[Hg] No Primary Care Physician [facility] 11-26-2022 12:46-0500 Body height 170.18 cm No Primary Care Physician [facility] Work Phone: 11-26-2022 12:46-0500 Body mass index (BMI) [Ratio] 26.8 kg/m2 No Primary Care Physician [facility] 11-26-2022 12:46-0500 Body temperature 97.8 [degF] No Primary Care Physician [facility] 11-26-2022 12:46-0500 Body weight 77.74 kg No Primary Care Physician [facility] 11-26-2022 12:46-0500 Diastolic blood pressure 75 mm[Hg] No Primary Care Physician [facility] 11-26-2022 12:46-0500 Heart rate 73 /min No Primary Care Physician [facility] 11-26-2022 12:46-0500 Respiratory rate 16 /min No Primary Care Physician [facility] 11-26-2022 12:46-0500 SaO2% (BldA) [Mass fraction] 98 % No Primary Care Physician [facility] 11-26-2022 12:46-0500 Systolic blood pressure 112 mm[Hg] No Primary Care Physician [facility] 10-10-2022 09:02-0500 Body mass index (BMI) [Ratio] 25.9 kg/m2 No Primary Care Physician [facility] Work Phone: 10-10-2022 09:02-0500 Body weight 75.01 kg No Primary Care Physician [facility] Work Phone: 10-10-2022 09:02-0500 Diastolic blood pressure 72 mm[Hg] No Primary Care Physician [facility] Work Phone: 10-10-2022 09:02-0500 Systolic blood pressure 110 mm[Hg] No Primary Care Physician [facility] Work Phone: 06-11-2022 10:47-0400 Body height 170.18 cm No Primary Care Physician [facility] Work Phone: 06-11-2022 10:46-0400 Body mass index (BMI) [Ratio] 25.2 kg/m2 No Primary Care Physician [facility] Work Phone: 06-11-2022 10:46-0400 Body weight 73.02 kg No Primary Care Physician [facility] Work Phone: 06-11-2022 10:46-0400 Diastolic blood pressure 74 mm[Hg] No Primary Care Physician [facility] Work Phone: 06-11-2022 [phone] Systolic blood pressure 122 mm[Hg] No Primary Care Physician [facility] Work Phone: Encounters Encounter Date Encounter Type Care Provider Facility Start: 05-27-2025 ambulatory No Primary Car e Physician Facility:[facility] Start: 05-17-2025 Encounter for other preprocedural examination London Reece [facility] Start: 05-13-2025 End: 05-13-[address] London Reece MD -[facility] Work Phone: Start: 05-13-2025 End: 05-13-2025 ambulatory No Primary Care Physician [facility] Work Phone: Start: 01-26-2025 End: 01-26-[address] Charlene Sands MD [facility] Work Phone: Start: 01-26-2025 End: 01-26-2025 ambulatory Charlene Sands Facility:[facility] Start: 01-12-2025 End: 01-12-2025 ambulatory Charlene Sands Facility:[facility] Start: 01-12-2025 End: 01-12-2025 ambulatory No Primary Care Physician Facility:[facility] Start: 12-15-2024 End: 12-15-2024 ambulatory No Primary Care Physician Facility:[facility] Start: 12-15-2024 End: 12-15-2024 ambulatory Quita Denney NP Facility:[facility] Start: 12-12-2024 End: 12-12-2024 ambulatory No Primary Care Physician Facility:[facility] Start: 12-10-2024 ambulatory Charlene Maza lity:[facility] Start: 12-07-2024 ambulatory Shaila Pagan cility:[facility] Start: 12-07-2024 End: 12-07-2024 ambulatory Shaila Ruelas Facility:[facility] Start: 12-07-2024 ambulatory Shaila Pagan cility:[facility] Start: 12-01-2024 ambulatory Shaila Ruelas Fa cility:[facility] Start: 12-01-2024 End: 12-04-2024 Evaluation and management of inpatient Shaila Ruelas Facility:[facility] Start: 11-29-2024 End: 11-29-2024 [facility]: 11-29-2024 End: 11-29-2024 ambulatory Shaila Ruelas Facility:[facility] Start: 11-23-2024 End: 11-23-[address] [facility] Start: 11-16-2024 End: 11-16-2024 ambulatory RUDOLPH Pam [facility] Start: 11-16-2024 End: 11-16-2024 ambulatory Shaila Ruelas Facility:[facility] Start: 11-09-2024 End: 11-09-2024 ambulatory Charlene Sands Facility:[facility] Start: 11-09-2024 End: 11-09-[address] [facility] Start: 11-09-2024 End: 11-09-2024 ambulatory Charlene Sands Facility:[facility] Start: 10-29-2024 ambulatory Fatimah Gibson Facility :[facility] Start: 10-28-2024 End: 10-29-2024 ambulatory No Primary Care Physician Facility:[facility] Start: 10-26-2024 End: 10-26-2024 [facility] Start: 10-26-2024 End: 10-26-2024 ambulatory Charlene Sands Facility:[facility] Start: 10-26-2024 End: 10-26-2024 ambulatory Nayely Jensen Facility:[facility] Start: 10-12-2024 End: 10-12-2024 ambulatory RUDOLPH E [facility] Start: 10-12-2024 End: 10-12-2024 ambulatory Charlene Sands Facility:[facility] Start: 09-28-2024 End: 09-28-2024 ambulatory RUDOLPH Pam [facility] Start: 09-14-2024 End: 09-14-2024 [facility] Start: 08-31-2024 End: 08-31-2024 ambulatory CHARLENE E [facility] Start: 08-17-2024 End: 08-17-2024 [facility] Start: 08-17-2024 End: 08-17-2024 ambulatory Shaila Ruelas Facility:[facility] Start: 08-05-2024 End: 08-05-2024 ambulatory Nessa RODRIGUEZ Facility:[facility] Start: 08-04-2024 End: 08-04-2024 ambulatory RUDOLPH Pam [facility] Start: 07-19-2024 End: 07-19-2024 ambulatory RUDOLPH Pam [facility] Start: 07-19-2024 End: 07-19-2024 ambulatory Shaila Jayson Gupta Facility:[facility] Start: 06-23-2024 ambulatory Charlene Sands Shaunna lity:[facility] Start: 06-22-2024 End: 06-22-2024 ambulatory RUDOLPH Pam [facility] Start: 06-09-2024 End: 06-09-2024 ambulatory Charlene Leyvacherrieandres Facility:[facility] Start: 06-04-2024 End: 06-04-2024 ambulatory Shaila Ruelas Facility:[facility] Start: 05-24-2024 End: 05-24-2024 ambulatory Shaila Ruelas Facility:[facility] Start: 05-24-2024 End: 05-24-2024 ambulatory Shailacyndie Ruelas Facility:[facility] Start: 03-04-2023 End: 03-04-2023 Emergency department patient visit No Primary Care Physician [facility]Emergency [facility] Start: 02-27-2023 End: 02-27-2023 Emergency department patient visit BRANDT FREEMAN MD Facility[facility] Start: 02-27-2023 End: 02-27-2023 Emergency department patient visit BRANDT FREEMAN MD [facility] Start: 02-12-2023 Encounter for other preprocedural examination SAL CESPEDES CNP [facility] Start: 02-05-2023 End: 02-05-2023 ambulatory NO PCP AA NO PCP [facility] Start: 01-22-2023 End: 01-23-2023 ambulatory NO PCP AA NO PCP [facility] Start: 12-12-2022 End: 12-12-2022 Patient encounter procedure No Primary Care Physician [facility] Start: 11-26-2022 End: 11-26-2022 Emergency department patient visit No Primary Care Physician [facility] Start: 11-25-2022 End: 11-25-2022 Emergency department patient visit CHARLENE SANDS [facility] Start: 10-10-2022 End: 10-10-2022 Patient encounter procedure No Primary Care Physician [facility] Start: 06-11-2022 End: 06-11-2022 Patient encounter procedure No Primary Care Physician [facility]-Laboratory, Specimen Start: 06-11-2022 End: 06-11-2022 Patient encounter procedure No Primary Care Physician [facility] Procedures Date Procedure Procedure Detail Performing Clinician Start: 03-04-2023 Plain chest X-ray No Pr imary Care Physician Start: 11-26-2022 X-ray of lumbosacral spine No Primary Care Physician section BRANDT HERNANDEZ MD H/O: section History of 2 sections No Primary Care Physician Comment on above: RLTCS with [facility] 12/10 @ 7:15 H/O: section Status pos t delivery No Primary Care Physician Swelling of first metatarsophalangeal joint of hallux (disorder) BRANDT FREEMAN MD Tonsillectomy BRANDT OLIVO MD Urine culture No Primary Car e Physician Plan of Treatment Date Care Activity Detail Author Start: 11-26-2022 [facility] Work Phone: Start: 06-11-2022 Liquid based cervica l cytology screening [facility] Work Phone: Dehydroepiandrostero ne sulfate (DHEA-S) [Mass/volume] in Serum or Plasma [facility] Follitropin and Lutr opin panel [Units/volume] - Serum or Plasma [facility] Path report.final Dx Spec [facility] Work Phone: Patient Education [facility] Work Phone: Patient referral [facility] Work Phone: Prolactin [Mass/volu me] in Serum or Plasma [facility] Payers Date Payer Category Payer Unknown [id number] 2024 Self-pay [id number] 2024 Unknown [id number] 2021 Unknown [id number] 2015 Unknown [id number] 2015 Unknown [id number] 1987 Unknown [id number] 2.16.8 40.1.291959.3.579.2.627 1987 Unknown [id number] 2.16.8 40.1.117074.3.579.2.598 1987 Unknown [id number] 2.16.8 40.1.395410.3.579.2.598 1987 Unknown [id number] 2.16. 840.1.980827.3.579.2.903 1987 Unknown [id number] 2.16. 840.1.052242.3.579.2.479 1987 Unknown [id number] 2.16 840.1.614217.3.579.2.479 1987 Unknown [id number] 2.16. 840.1.024978.3.579.2.479 1987 Unknown [id number] 2.16. 840.1.955467.3.579.2.479 1987 Unknown [id number] 2.16. 840.1.749371.3.579.2.479 1987 Unknown [id number] 2.16. 840.1.343471.3.579.2.479 1987 Unknown [id number] 2.16. 840.1.401331.3.579.2.479 1987 Unknown [id number] 2.16. 840.1.491450.3.579.2.479 1987 Unknown [id number] 2.16. 840.1.412102.3.579.2.479 1987 Unknown [id number] 2.16 840.1.898816.3.579.2.479 1987 Unknown [id number] 2.16. 840.1.896264.3.579.2.479 1987 Unknown [id number] 2.16 840.1.272698.3.579.2.479 1987 Unknown [id number] 2.16. 840.1.202212.3.579.2.479 1987 Unknown [id number] 2.16 840.1.463646.3.579.2.479 1959 Unknown [id number] Unknown [id number] 2.16.8 40.1.106039.3.579.2.462 Unknown [id number] 2.16.8 40.1.366342.3.579.2.462 Unknown [id number] 2.16.8 40.1.555327.3.579.2.462 Unknown [id number] 2.16.8 40.1.240991.3.579.2.462 Unknown [id number] 2.16.8 40.1.813963.3.579.2.462 Unknown [id number] 2.16.8 40.1.644743.3.579.2.462 Unknown [id number] 2.16.8 40.1.216969.3.579.2.462 Unknown [id number] 2.16.8 40.1.081168.3.579.2.462 Unknown [id number] 2.16.8 40.1.174940.3.579.2.462 Unknown [id number] 2.16.8 40.1.070973.3.579.2.462 Unknown [id number] 2.16.8 40.1.487843.3.579.2.462 Unknown [id number] 2.16.8 40.1.029744.3.579.2.462 Unknown [id number] 2.16.8 40.1.852558.3.579.2.462 Unknown [id number] 2.16.8 40.1.492965.3.579.2.462 Unknown [id number] 2.16.8 40.1.012325.3.579.2.462 Unknown [id number] 2.16.8 40.1.581083.3.579.2.462 Unknown [id number] 2.16.8 40.1.061262.3.579.2.462 Unknown [id number] 2.16.8 40.1.222336.3.579.2.462 Unknown [id number] 2.16.8 40.1.028529.3.579.2.462 Unknown [id number] 2.16.8 40.1.028557.3.579.2.462 Unknown [id number] 2.16.8 40.1.370554.3.579.2.462 Unknown [id number] 2.16.8 40.1.963714.3.579.2.462 Unknown [id number] 2.16.8 40.1.177481.3.579.2.462 Unknown [id number] 2.16.8 40.1.250964.3.579.2.462 Unknown [id number] 2.16.8 40.1.901148.3.579.2.462 Unknown [id number] 2.16.8 40.1.902220.3.579.2.462 Unknown [id number] 2.16.8 40.1.844780.3.579.2.462 Unknown [id number] 2.16.8 40.1.140874.3.579.2.462 Unknown [id number] 2.16.8 40.1.639606.3.579.2.462 Unknown [id number] 2.16.8 40.1.172818.3.579.2.462 Unknown [id number] 2.16.8 40.1.567722.3.579.2.462 Unknown [id number] 2.16.8 40.1.943167.3.579.2.462 Unknown [id number] 2.16.8 40.1.070168.3.579.2.462 Unknown [id number] 2.16.8 40.1.554106.3.579.2.462 Unknown [id number] 2.16.8 40.1.837696.3.579.2.462 Unknown [id number] 2.16.8 40.1.462783.3.579.2.462 Unknown [id number] 2.16.8 40.1.605009.3.579.2.462 Unknown [id number] 2.16.8 40.1.189533.3.579.2.462 Social History Date Type Detail Facility Start: 06-11-2022 End: 03-04-2023 Tobacco smoking status AKIS Unknown if ever smoked [facility] Start: 1985 Sex Assigned At Female [facility] Start: 12-01-2024 Tobacco smoking status Never smoked tobacco (finding) [facility] Sex Assigned At Sex [facility] NEGATED: Highlighted row [facility] Functional Status Date Assessment Result Facility 02-27-2023 Functional Status Standard Safet y ID band on, Call device within reach, Bed in low position, Wheels locked, Upper/Half-Length side-rails up, Bedside Cart Locked, Safety level maintained [facility] Mental Status Date Assessment Result Facility 02-27-2023 Mental Status Orientation Oriented x 4 [facility] Evaluation note 01-26-2025 Note Date & Type Note Facility 01-26-2025 Evaluation note Diagnosis Onset Date Resolution Contraceptive management acute January 26, 2025 1:06pm External hemorrhoids acute May 13, 2025 1:24pm [facility] Work Phone: Discharge summary note 12-04-2024 Note Date & Type Note Facility 12-04-2024 Note [facility] Medical Records Department [address] [place] [address] Discharge Summary 12/04/24 0934 MR#: [id number] Acct: [id number] Name: SUSIE LOZANO Rep #: [id number] : 1985 39 From: Fatimah Gibson CNM PCP: Care Physician,No Primary Status:ADM IN Location: [id number] Providers Date of Admission: 12/01/24 Date of Discharge: 12/04/24 Primary Care Physician: No Primary Care Phys Reason For Visit: REPEAT Diagnosis Discharge Diagnosis (1) Status post delivery: Status: Acute Code(s): Z98.891 - History of uterine scar from previous surgery Plan: s/p LTCS PPD # 3 1. routine post care 2. breast feeding- support given 3. rh positive 4. rubella immune 5. 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 (5) Monochorionic diamniotic twin gestation: Status: Acute Code(s): O30.039 - Twin , monochorionic/diamniotic, unspecified trimester (6) AMA (advanced maternal age) multigravida 35+: Status: Acute Code(s): O09.529 - Supervision of elderly multigravida, unspecified trimester (7) History of 2 sections: Status: Acute Code(s): Z98.891 - History of uterine scar from previous surgery (8) Hx of maternal blood transfusion, currently : Status: Acute Code(s): O09.299 - Supervision of with other poor reproductive or obstetric history, unspecified trimester (9) Supervision of high-risk : Status: Acute Code(s): O09.90 - Supervision of high risk , unspecified, unspecified trimester (10) : Status: Acute Code(s): Z34.90 - Encounter for supervision of normal , unspecified, unspecified trimester Qualifiers: Weeks of gestation: 35 weeks Qualified Code(s): Z3A.35 - 35 weeks gestation of (11) Low grade squamous intraepithelial lesion (LGSIL): Status: Acute (12) Hemorrhoids during : Status: Acute Code(s): O22.40 - Hemorrhoids in , unspecified trimester Qualifiers: Trimester: second trimester Qualified Code(s): O22.42 - Hemorrhoids in , second trimester Medications at Discharge Home Medications PNV 153-FA 400 mcg-om3 35 mg-dha 25 mg-epa 5 mg-fish oil chew tablet 1 tab PO 05/18/24 hydroxyzine pamoate 50 mg capsule 50 mg PO QHS #30 caps 11/16/24 ibuprofen 800 mg tablet 800 mg PO Q8H PRN pain #30 tabs 12/01/24 oxycodone-acetaminophen 5 mg-325 mg tablet (Percocet) 1 tab PO Q4H PRN pain 7 days #30 tabs 12/01/24 sennosides 8.6 mg-docusate sodium 50 mg tablet (Stimulant Laxative Plus) 1 - 2 tab PO DAILY #30 tabs 12/04/24 Hospital Course Operations section Procedures None Summary of Care Provided Minutes Spent on Discharge: 30 Physical Exam Const alert, oriented x3 and no apparent distress Neck full ROM Resp normal respiratory effort, normal air movement and no retractions Effort and Inspection: able to speak in complete sentences and symmetric chest movement GI soft to palpation Inspection: incision intact Bladder / Kidney Exam: bladder normal to palpation Uterus Palpation: uterus fundus Extremity normal to inspection and full ROM Psych mental status grossly normal, thought process normal and cooperative Weight / BMI Weight Weight: 233 lb 11.04 oz Body Mass Index (BMI) 36.6 ABG / Lab / Microbiology Data 12/02/24 06:10 12/01/24 18:30 D/C Instructions Discharge Diet: No restrictions May shower in (days): 0 May resume sexual activity in: 4-6 weeks Weight Bearing Status: Full weight bearing Call your doctor if your incision/area has: Continuous Slow Oozing, Sudden Increased Bleeding, Increased Pain/ Swelling, Increased Redness and Foul Smelling Discharge Call your doctor if you observe: Fever of 101 or Higher and Using more than 1 pad per hour Suture Line Care: Avoid Pulling/Pushing and Avoid Pinching/Bending Cleanse incision/area with: Soap Water and Keep Dressing Clean Dry DC O2, CPAP, BIPAP Needs Home O2 Discharge instructions: No Please Follow Up With: Shaila Ruelas DO When: Call [phone] to make an appointment for an incision check in 1-2 weeks. Meaningful Use Info Meaningful Use Meaningful Use Diagnoses (Choose all that apply): None applicable Ischemic Stroke Statin Dosing Therapy Reference: STATIN DOSE THERAPY REFERENCE: * Patients > 75 years receive moderate or high dose statin therapy. * Patients 75 years or YOUNGER should receive HIGH intensity statin dose unless contraindicated. You will be required to document reason for non-treatment if statin (more content not included)... [facility] Hospital Discharge instructions 02-27-2023 Note Date & Type Note Facility 02-27-2023 Hospital Discharg e instructions Patient Education 02/27/2023 16:58:50 PAIN, Uncertain Cause (Acute) Pain, Uncertain Cause [Acute] Pain is the body s way of calling attention to a problem. Pain can be caused by many conditions - some minor, some serious. In your case, we were not able to find the exact cause for your pain. However, at this time there is no sign of any serious or life-threatening illness causing your pain. Sometimes more tests will be needed to determine the cause. Other times, just allowing more time to pass will either make it clear what the problem is, or the pain will go away by itself. Home Care: You may use acetaminophen (Tylenol) or ibuprofen (Motrin, Advil) to control pain, unless another medicine was prescribed. [NOTE: If you have chronic liver or kidney disease or ever had a stomach ulcer or GI bleeding, talk with your doctor before using these medicines.] Follow Up with your doctor or as advised by our staff. Get Prompt Medical Attention if any of the following occur: Changes in the pattern of your pain Appearance of new symptoms Fever of 100.4 F (38 C) or higher, or as directed by your healthcare provider [phone] [employer]. [address] [place] [address], [place] [address]. All rights reserved. This information is not intended as a substitute for professional medical care. Always follow your healthcare professional's instructions. Follow Up Care 02/27/2023 16:47:44 With:SERGE HINSON DO Address: [address] [place] [phone] When:2-4 days [facility] Emergency department Discharge summary 02-27-2023 Note Date & Type Note Facility 02-27-2023 Emergency department Discharge summary Discharge Instructions Thank you for allowing [facility] to assist you with your healthcare needs. The following is important discharge information regarding your hospital visit. Diagnosis from Today's Visit Throat pain Cough Sore throat - Adult What to Do Next Instructions from Your Care Team No qualifying data available. Post Acute Orders No qualifying data available. You Need to Schedule the Following Appointments Follow Up with SERGE HINSON DO When Within 2-4 days Where: [address] [place] [phone] Allergies Dilaudid Medications Please ask your primary doctor or pharmacist before taking any other medication not listed, including over the counter drugs, herbal medications, vitamins and or supplements as they may interact with your home medications. What How Much When Instructions Last Dose Unchanged acetaminophen-OXYcodone (acetaminophen-OXYcodone 325-5 mg tablet) 1 tab(s) by mouth Every 6 hours as needed for Pain Unchanged acetaminophen-OXYcodone (Percocet 325/ 5 oral tablet) 1 tab(s) by mouth Every 4 hours as needed for for pain Unchanged docusate (Colace) 100 Milligram by mouth Two (2) times a day Unchanged ibuprofen (Motrin) 800 Milligram by mouth Every 8 hours Unchanged multivitamin with iron (Iron-150) 1 tab(s) by mouth Once a day Unchanged multivitamin, (PNV-Total) 1 cap by mouth Once a day Please take this list to your next doctor s visit. Bring all medications you take, including over the counter medications, herbals and other supplements with you to your doctor s visit. Patients and families are reminded to discard old lists and to update any records with all medication providers or retail pharmacies. Education Materials Pain, Uncertain Cause [Acute] Pain is the body s way of calling attention to a problem. Pain can be caused by many conditions - some minor, some serious. In your case, we were not able to find the exact cause for your pain. However, at this time there is no sign of any serious or life-threatening illness causing your pain. Sometimes more tests will be needed to determine the cause. Other times, just allowing more time to pass will either make it clear what the problem is, or the pain will go away by itself. Home Care: You may use acetaminophen (Tylenol) or ibuprofen (Motrin, Advil) to control pain, unless another medicine was prescribed. [NOTE: If you have chronic liver or kidney disease or ever had a stomach ulcer or GI bleeding, talk with your doctor before using these medicines.] Follow Up with your doctor or as advised by our staff. Get Prompt Medical Attention if any of the following occur: Changes in the pattern of your pain Appearance of new symptoms Fever of 100.4 F (38 C) or higher, or as directed by your healthcare provider [phone] [employer]. [address] [place] [address]. All rights reserved. This information is not intended as a substitute for professional medical care. Always follow your healthcare professional's instructions. Additional Information VACCINATE! IT SAVES LIVES! Members of the community who have not yet received the COVID-19 vaccine and would like to receive it can visit one of [facility] vaccine clinics. There are many vaccine clinic locations within the [facility]. For locations and available times, please visit [email or web address] It is important to note that some COVID mobile vaccine clinics are held outdoors and may be canceled in rainy or stormy conditions. To learn more about pediatric vaccinations (ages 5-11), we invite you to visit the [facility] webpage. [email or web address] To learn more about the COVID-19 vaccine, we invite you to visit the CDC website for a list of frequently asked questions. https://www.cdc.gov/coronavirus/2 019-ncov/vaccines/faq.html [email or web address] Patient Portal Access Instructions: Stay connected with your healthcare team and access your personal medical information anytime with the [email or web address] Patient Portal. If you would like a full copy of your medical records please contact the [facility] Medical Records Department Friday through Friday between 8a.m. and 4:30p.m. Please follow the directions below to access the portal: 1.Access the email account you provided upon registration to the [facility].2.Look for an invitation email from [facility].3.Open the email and access the invitation link: Accept Invitation to [email or web address].Fill in the required bates to create your account. Sign into [email or web address] with your username and password that you created in the above steps to stay up to date. You can then view a summary of results, a summary of your visits, and the ability to download your summaries to your computer or send the information securely to a physician. Remember that your healthcare information is confidential, so carefully consider who you will allow to register on the [email or web address] Patient Portal for access to your information. You can also access the [email or web address] Patient Portal on the [employer]. Simply click on Health Records under Health Data and then click on the [employer] logo. HOW TO SAFELY DISPOSE OF PRESCRIPTION MEDICATIONS Please use one of the following methods to safely dispose of your unused medications. 1.Use a drug disposal kit: the drug disposal pouch allows you to safely discard your old and unused drugs. Ask your nurse to give you one when you are discharged.2.Visit a local take-back location: Many local pharmacies and police departments have programs that collect old and unwanted prescription drugs. Call your local pharmacy or go to http://Hot Dot.[employer] Entertainment/5J8Yh3w to find one close to you.3.Make use of household items: Use cat litter or old coffee grounds to dispose medications if other options are not available. Mix your drugs with these household products, seal them in an airtight container and throw it into the garbage. Call [facility]: [phone] to be sure your drugs can be disposed of in this way. Some medicines may require a different approach.4.Never flush your medications down the toilet. IF YOU HAVE BEEN PRESCRIBED AN OPIOIDS FOR PAIN If you have been prescribed an opioid (such as hydrocodone, oxycodone or morphine), it is critical to understand the possible side effects and risks of opioid pain medications. Even when taken as directed, opioids can have several side effects including: Tolerance, meaning you might need to take more of a medication for the same pain relief. Nausea, vomiting and/or constipation. Sleepiness, dizziness, dry mouth, confusion, depression or itching. Physical dependence, meaning you have withdrawal symptoms when a medication is stopped ? this can develop within a few days. KNOW YOUR RESPONSIBILITIES It is important to know exactly how much and how often to take the opioid pain medications you are prescribed. Never take opioids in higher amounts or more often than prescribed. Do not combine opioids with alcohol or other drugs that cause drowsiness, such as benzodiazepines, also known as benzos, including diazepam and alprazolam, muscle relaxants or sleep aids. Never sell or share prescription opioids. This is illegal. Store opioids in a secure place and out of reach of others (including children, family, friends and visitors). The last page(s) of this document has been signed and retained as a CHART COPY Signatures Patient Education Materials PAIN, Uncertain Cause (Acute) Medication Leaflets My discharge plan and instructions have been reviewed and explained to me and IEBER ASHLEY M understand my current condition and have read and understand these discharge instructions. I have received a written copy of the plan/instructions. If I have questions, I am aware that I should contact my doctor. 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: Date/Time: Relationship to Patient: ____ Witness Name/Signature: Date/Time: [facility] Evaluation + Plan note Note Date & Type Note Facility Evaluation + Plan note No data available for this section [facility] Evaluation note Note Date & Type Note Facility Evaluation note Diagnosis Onset Date Encounter for routine gyneco logical examination noneactive [facility] Work Phone: Evaluation note Note Date & Type Note Facility Evaluation note Diagnosis Onset Date Anxiety acute [facility] Work Phone: Evaluation note Note Date & Type Note Facility Evaluation note Diagnosis Onset Date Amenorrhea acute Anxiety acute Low grade squamous intraepit helial lesion (LGSIL) acute Pelvic pain acute Psychosomatic pain acute Pain in female pelvis noneac tive [facility] Work Phone: Hospital Discharge instructions Note Date & Type Note Facility Hospital Discharge instructions Additional Instructions Please follow-up with PCP. Return if symptoms worsen. 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 No July 22 020 10:59pm Advance Directive Response Recorded Date/ Time Living Will No November 26 022 1:35pm Power of Ferris Wheel Operator No November 26, 2022 1:35pm Advance Directive Response Recorded Date/ Time Living Will No March 04, 2023 10:37am Power of Ferris Wheel Operator No March 04 10:37am Chief Complaint and Reason for Visit 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 APTIMA Reason for Visit Encounter for routin e gynecological examination Chief Complaint Discuss contro l abd pain Reason for Visit Anxiety Chief Complaint abd pain Pelvic pain COUGH Reason for Visit Amenorrhea Anxiety Low grade squamous intraepithelial lesion (LGSIL) Pelvic pain Psychosomatic pain Pain in female pelvis Chief Complaint Admit Date IUD INSERTION January 26, 2025 1:06pm HEMORRHOIDS- SELF REFERRED May 13 1:24pm Reason for Visit Admit Date Contraceptive management January 26, 2025 1:06pm External hemorrhoids May 13, 2025 1:2 4pm Additional Source Comments INFORMATION SOURCE (unrecogn ized section and content) DATE CREATED AUTHOR 10/11/2020 [facility] DATE CREATED AUTHOR AUTHOR'S ORGANIZ ATION 03/04/2023 [facility] DATE CREATED AUTHOR AUTHOR'S ORGANIZ ATION 04/14/2023 [facility] DATE CREATED AUTHOR AUTHOR'S ORGANIZ ATION 09/28/2023 [facility] DATE CREATED AUTHOR AUTHOR'S ORGANIZ ATION 11/30/2024 [facility] DATE CREATED AUTHOR AUTHOR'S ORGANIZ ATION 05/17/2025 [facility] Goals (unrecognized section and content) Goals may be documented in a n alternate sectionGoals may be documented in an alternate section No data available for this sectionGoals may be documented in an alternate sectionGoals may be documented in an alternate section Patient Care team informatio n (unrecognized section and content) Team Status: Active Member Role Status Dates Dr. Sin Sanchez , Family Provider Active No Primary Care Physician Primary Care Provider Active Team Status: Inactive Member Role Status Dates No Primary Care Physician Primary Care Provider, Refer ring Provider Active Dr. Shaila Ruelas , Attending Provider Activ e Team Status: Inactive Member Role Status Dates No Primary Care Physician Primary Care Provider Active Juan Stack MD Attending Provider, Emergency Provid er Active Team Status: Inactive Member Role Status Dates No Primary Care Physician Primary Care Provider Active Dr. Herson Luis , Emergency Provider Active Team Status: Inactive Member Role Status Dates No Primary Care Physician Primary Care Provider Active Start: January 26, 2025 End: January 26, 2025 No Primary Care Physician Referring Provider Active Start: January 26, 2025 End: January 26, 2025 Dr. Charlene Sands MD Attending Provider Active Start: January 26, 2025 End: January 26, 2025 Team Status: Inactive Member Role Status Dates No Primary Care Physician Referring Provider Active Start: May 13, 2025 End: May 13, 2025 Dr. London Reece MD Attending Provider Active Start: May 13, 2025 End: May 13, 2025 FOR RECORDS PERTAINING TO PATIENTS WHO ARE OR HAVE BEEN ENROLLED IN A CHEMICAL DEPENDENCY/SUBSTANCEABUSE PROGRAM, SOME INFORMATION MAY BE OMITTED. This clinical summary was aggregated from multiple sources. Caution should be exercised in using it in the provision of clinical care. This summary normalizes information from multiple sources, and as a consequence, information in this document may materially change the coding, format and clinical context of patient data. In addition, data may be omitted in some cases. CLINICAL DECISIONS SHOULD BE BASED ON THE PRIMARY CLINICAL RECORDS. [facility]. provides no warranty or guarantee of the accuracy or completeness of information in this document.
[2025-05-27 06:27] LABS: Internal QC Validated? YES +Cl - CLEAR BKGD; Pregnancy, Urine Negative Negative
[2025-05-27] MEDS: Lactated Ringers 1,000 ML 15 ML IV (06:42)
--- NOTE | 2025-05-27 06:53 | PCM.PRE.AN2 ---
ASA Classification* ASA Classification ASA Classification: 2 Assessment & Plan Anesthesia* Anesthesia Assessment Anesthesia Assessment: Discussed sedation and/or anesthesia options, risks, benefits, and alternatives with patient/parents/legal guardian/POA. Questions invited. The patient/parents/legal guardian/POA seems to understand and agrees to proceed with anesthesia plan. Reviewed the physical assessment, medical history, allergy history and patient home medications list prior to surgery/procedure/anesthetic and documented any changes. Performed airway and anesthesia risk assessments. Anesthesia Type Anesthesia Type: General History Source History Obtained from:: Patient and Chart Anesthesia Focused Assessment* Temperature: 97.1 F Pulse Rate: 56 Blood Pressure: 133/75 Respiratory Rate: 16 Pulse Ox: 100 Oxygen Delivery Method: Room Air Airway Assessment Mouth opens: >3 cm Mallampati Score: III Teeth Condition: Intact Neck Range of motion (ROM): Full ROM Labs Anesthesia Preop lab: CBC WBC 20.9 K/mm3 (4.4-11.0) H 12/02/24 06:10 12/02/24 RBC 3.76 M/mm3 (4.2-5.4) L 12/02/24 06:10 12/02/24 Hgb 11.1 g/dL (12.0-15.0) L 12/02/24 06:10 12/02/24 Hct 32.1 % (37-47) L 12/02/24 06:10 12/02/24 Plt Count 186 K/mm3 (150-450) 12/02/24 06:10 12/02/24 CHEMISTRY Potassium 3.7 mmol/L (3.5-5.1) 03/04/23 09:30 03/04/23 Sodium 140 mmol/L (136-145) 03/04/23 09:30 03/04/23 BUN 11 mg/dL (7-18) 03/04/23 09:30 03/04/23 Creatinine 0.75 mg/dL (0.55-1.02) 12/01/24 18:30 12/01/24 Glucose 96 mg/dL (74-106) 03/04/23 09:30 03/04/23 COAG Urine Test Negative Negative 05/27/25 06:15 05/27/25 Tst Clinic Negative 01/26/25 13:18 01/26/25 Pre-Assessment Diagnosis/Proposed Procedure Planned Operative Procedure(s): DOPPLER GUIDED HEMORROID ARTERY LIGATION, EXCISION OF EXTERNAL HEMORROIDS Anesthesia History Anesthesia History - 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 When Was Last Pacemaker Check QUESTION #4 FULL TEXT: You/Your Family Experience fever (hyperthermia) with Anesthesia Last Oral Intake Last Oral intake: Last Oral Intake NPO since 21:00 05/27/25 06:24 Meds taken in AM with sips of No 05/27/25 06:24 water? Meds patient instructed to take am of surgery PONV PONV - fountain pen nibs inspector: PONV - fountain pen nibs inspector Female Yes 05/17/25 11:06 HX of Motion Sickness No 05/17/25 11:06 HX of N/V After Surgery No 05/17/25 11:06 Non-Smoker Yes 05/17/25 11:06 Duration of Surgery greater No 05/17/25 11:06 than 60 minutes Number of Risk Factors 2 05/17/25 11:06 PONV Score Moderate Risk 05/17/25 11:06 Height & Weight Height & Weight: Anesthesia: Height & Weight Height 5 ft 7 in 05/27/25 06:24 Weight: 84 kg 05/27/25 06:24 Body Mass Index (BMI) 29.0 05/27/25 06:24 Respiratory Assessment Respiratory Assessment - fountain pen nibs inspector: Respiratory Tract Infection Hx - fountain pen nibs inspector Hx Respiratory Tract Infection No 05/17/25 11:06 STOP Sleep Apnea STOP Sleep Apnea - fountain pen nibs inspector: STOP Sleep Apnea - fountain pen nibs inspector Hx Hypertension No 05/17/25 11:06 Hx Sleep Apnea No 05/17/25 11:06 CPAP BIPAP Do you snore loudly (louder No 05/17/25 11:06 than talking or can be heard Do you often feel tired/ No 05/17/25 11:06 fatigued/ sleepy during daytime? Has anyone observed you stop No 05/17/25 11:06 breathing during sleep? STOP Results Negative 05/17/25 11:06 QUESTION #5 FULL TEXT : Do you snore loudly (louder than talking or can be heard through closed doors)? 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 Specify any problems Hx of Preganancy in last 3 No 05/17/25 11:06 Months Nurse Filling Out Transfusion [email or web address] 05/17/25 11:06 & Questions: Date: 05/17/25 05/17/25 11:06 Time: 11:08 05/17/25 11:06 Patient unable to answer at this time (ie. confused, unrespo /Reproduction History /Reproductive History - fountain pen nibs inspector: /Reproductive Hx- fountain pen nibs inspector Hx Now No 05/17/25 11:06 Gestational Age (in weeks): EDC: Hx Hx Para Hx Section SAB Yes 05/17/25 11:06 Active Medications Active Medications: Current Medications Generic Name Dose Route Start Last Admin Trade Name Freq PRN Reason Stop Dose Admin Cefazolin Sodium 2 gm/ Sodium 110 mls @ 200 mls/hr 05/27/25 07:30 Chloride IV 05/27/25 08:02 INTRAOP ONE Lactated Ringer's 1,000 mls @ 15 mls/hr 05/27/25 06:15 05/27/25 06:42 IV 15 mls/hr .Q48H LEATHA Administration PFSH Medical History Contraceptive management History of blood transfusion hemorrhage Hemorrhoids during History of Amenorrhea Psychosomatic pain Pelvic pain Anxiety LGSIL (low grade squamous intraepithelial dysplasia) Home Medications ?Medication ?Instructions ?Recorded ?Last Taken ?Type levonorgestrel 20.4 mcg/24 hr (up 1 device intrauterine ONCE 01/26/25 Unknown History to 8 yrs) 52 mg intrauterine device (Liletta) Allergy/AdvReac Type Severity Reaction Status Date / Time No Known Allergies Allergy Verified 05/17/25 11:04 Surgical History H/O breast augmentation H/O foot surgery History of tonsillectomy H/O: Social History adopted: No household members: spouse and children number of children: 3 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 status: employed 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 exposures/hazards: No pets and animals: Yes pets and animals: dog(s) history of recent travel: No sexually active: Yes Smoking Status: Never smoker alcohol intake: never substance use type: does not use well-balanced diet: daily or most days caffeine: No eating out: rarely or never during the past year weight has: remained stable what type of physical activity do you participate in: walking and other details: volley ball frequency: 1-2 times per week duration: > 90 minutes/day velia/mu-ism: Yazdanism seatbelt use: always do you feel safe at home: Yes 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
--- NOTE | 2025-05-27 07:23 | HP.PCM_ITS ---
HPI - General General Date of Service: 05/27/25 Chief Complaint: hemorrhoids HPI Narrative ALLEN MORROW, is a 39 F who presents with symptomatic hemorrhoids and elective hemorrhoidectomy [facility] Medical History Contraceptive management History of blood transfusion hemorrhage Hemorrhoids during History of Amenorrhea Psychosomatic pain Pelvic pain Anxiety LGSIL (low grade squamous intraepithelial dysplasia) Home Medications ?Medication ?Instructions ?Recorded ?Last Taken ?Type levonorgestrel 20.4 mcg/24 hr (up 1 device intrauterin e ONCE 01/26/25 Unknown History to 8 yrs) 52 mg intrauterine device (Liletta) Allergy/AdvReac Type Severity Reaction Status Date / Time No Known Allergies Allergy Verified 05/17/25 11:04 Surgical History H/O breast augmentation H/O foot surgery History of tonsillectomy H/O: Social History adopted: No household members: spouse and children number of children: 3 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 status: employed 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 exposures/hazards: No pets and animals: Yes pets and animals: dog(s) history of recent travel: No sexually active: Yes Smoking Status: Never smoker alcohol intake: never substance use type: does not use well-balanced diet: daily or most days caffeine: No eating out: rarely or never during the past year weight has: remained stable what type of physical activity do you participate in: walking and other details: volley ball frequency: 1-2 times per week duration: > 90 minutes/day velia/latter day: Catholic seatbelt use: always do you feel safe at home: Yes 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 Vital 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 Vital Signs Vital Signs: 05/27/25 06:24 05/27/25 06:24 05/27/25 06:59 Temperature 97.1 F L 97.1 F L Temperature Source Temporal Pulse Rate 56 L 56 L Respiratory Rate 16 16 Respiratory Pattern Normal Blood Pressure 133/75 H 133/75 H Blood Pressure Mean 94 Blood Pressure Source Monitor Blood Pressure Position Sitting Blood Pressure Location Right Arm Pulse Ox 100 100 Oxygen Delivery Method Room Air Room Air Weight Weight: 185 lb 3.013 oz Body Mass Index (BMI) 29.0 Physical Exam Const alert, oriented x3 and no apparent distress Results Lab / Micro Data Labs: Laboratory Results - last 24 hr 05/27/25 06:15: Urine Test Negative Assessment & Plan Assessment/Plan (1) External hemorrhoids: PLAN: hemorrhoid surgery this AM
--- NOTE | 2025-05-27 07:30 | HEM_PTH ---
PATIENT: ALLEN MORROW LOC[place] [facility] [place] U[place][id number] AGE/SX: 39/F ROOM: RE05/27/[address]: Dr. London Reece MD : 1985 BED: DIS: 05/27/2025 SPEC #: [id number] RECD: 05/27/25 09:33 STATUS: JAIME RESudarshan #: [id number] ARTUR: 05/27/25 07:[address]: London Reece DEPT: SURGICAL PATHOLOGY RECD BY: Talha Hanna ENTERED: 05/27/25 09:56 SP TYPE: HEMORRHOID OTHR DR: Dixie Primary Care Phys Tissues: A - HEMORRHOIDS Procedures: Surgery Specimen Level III HEADER OPERATION: Hemorrhoidectomy with DTH (doppler) and excision of external hemorrhoid PRE-OP DIAGNOSIS: External hemorrhoids TISSUE SUBMITTED: A- Hemorrhoid tissue MICROSCOPIC DIAGNOSIS A. Skin, external hemorrhoids, hemorrhoidectomy: - Polypoid skin fragments with dilated and congested blood vessels, consistent with hemorrhoids. MICROSCOPIC DESCRIPTION Slides are reviewed. GROSS DESCRIPTION A. Received in formalin labeled with the patient's name and date of . Designated as hemorrhoid tissue are 3 irregular sun-pink to red rubbery and congested portions of apparent skin, 1.5 x 1.5 x 1.0 cm to 5.3 x 1.5 x 1.2 cm. Sectioning reveals pink-sun to red, rubbery and hemorrhagic cut surfaces. Bonding Machine Operator sections are submitted in 3 cassettes. MA 05/27/2025 CPT:[id number]
[2025-05-27] MEDS: Cefazolin 2 GM in 0.9% Normal Saline (100mL Bag) 100 ML IV (07:52)
[2025-05-27] MEDS: Dibucaine 30 GM Tube 1 APPLIC (08:20)
[2025-05-27] MEDS: Silver Sulfadiazine 1% Crm 50 gm Bottle 50 APPLIC TOPICAL (08:20)
[2025-05-27] MEDS: Bupiv/Epi 0.25% 30 ML Vial (08:36)
--- NOTE | 2025-05-27 09:01 | PCM.POST.ANE ---
Anesthesia: Postop Eval I Current Vital Signs Temperature: 97 F Pulse Rate: 108 Blood Pressure: 103/53 Respiratory Rate: 14 Pulse Ox: 100 Assessment Airway patent: Yes Spontaneous unlabored respirations: Yes nausea: No Vomiting: No Anesthesia Complication: No Fluid Hydration Crystalloid volume administer (ml): 1,000 Total IV fluid infused: 1,000 Progress Note Anesthesia document: Postop Eval 1 completed: Yes
--- NOTE | 2025-05-27 09:01 | EX.PCM.DISCH ---
Discharge Instructions Diet Discharge Diet: Light diet - advance as tolerated Activity Discharge Activity: No Restrictions, May Shower and May Take a Tub Bath Dressing / Incision Call your doctor if your incision/area has: Continuous Slow Oozing, Sudden Increased Bleeding, Increased Pain/ Swelling, Increased Redness, Foul Smelling Discharge and Swelling at the incision site Call your doctor if you observe: Fever of 101 or Higher Cleanse incision/area with: Soap & Water Additional Dressing/Incision Instructions:: Apply Silvadene cream as well as topical anesthetic cream twice daily to surgical area Follow Up Care Please Follow Up With: London Reece MD When: 2 weeks. Please call office to schedule appointment. Test Results: Test results from this visit will be discussed in further detail at your follow-up appointment, if applicable. Discharge Plan Admission Primary Reason for Your Visit: Hemorrhoid surgery Attending Provider: London Reece Primary Care Provider: Care Physician,No Primary Instructions Print Language: Macedonian Discharge Orders/Prescriptions Prescriptions: New oxycodone-acetaminophen [Percocet] 5-325 mg tablet 1 tab PO Q8H PRN (Reason: pain) 5 Days Qty: 14 0RF Continued Liletta 20.4 mcg/24 hr (8 yrs) 52 mg intrauterine device 1 device intrauterine ONCE Rx Instructions: as a single dose Disposition Disposition (needs filled in before D/C Order can be placed): Home, Self Care
--- NOTE | 2025-05-27 09:07 | OP.PCM_ITS ---
[facility] CPT Codes: 13763 Excision, Anus w/US guidance and Other Procedure See Notes (17572) Operative Report (Standard) Operative Information Date of Procedure: 05/27/25 Pre-Operative Diagnosis: Symptomatic hemorrhoids Post-Operative Diagnosis: Same Surgery/Procedure Performed: 1. Doppler guided hemorrhoid artery ligation 2. Excision of external hemorrhoids junior systems administrator: Yes Glassware Finisher: Sukhdeep Das Tasks completed by assistant professor of english: Retracting Additional first assistant manager?: No Type of Anesthesia: General and Local RN Documented Start/Stop Times: Operation Date: 05/27/25 07:30 Case Time Into Pre-Op 05/27/25 06:07 Out of Pre-Op 05/27/25 07:42 Anesthesia Start 05/27/25 07:45 Into Room 05/27/25 07:45 Procedure Start 05/27/25 08:09 Procedure End 05/27/25 08:49 Anesthesia End 05/27/25 08:56 Out of Room 05/27/25 08:56 Into Recovery 05/27/25 08:57 Procedure Start Time: 08:09 Procedure Stop Time: 08:49 Select all DRAINS/GRAFTS/IMPLANTS that apply: None Estimated Blood Loss: Minimal Specimen collected: Yes Description of specimen(s) removed: External hemorrhoids Description of surgery: The patient is a 39-year-old female with ongoing issues with internal as well as external hemorrhoids. I offered her a Doppler hemorrhoid artery ligation surgery as well as excision of external hemorrhoids. We discussed the details of the planned procedure and she wished to proceed. She was brought to the operating today following informed consent. She was placed supine on the operative table with arms outstretched and arm boards. A general LMA anesthesia was induced. Once anesthetized, her legs were placed in a modified lithotomy position. Digital rectal exam was performed after timeout was performed and the area was prepped and draped. No obvious masses were noted. The Doppler probe was inserted first at the 12 o'clock position and was rotated in a clockwise direction such that each point in which of dopplerable signal was encountered a 3-0 Vicryl suture was placed in a [id number] manner. This was tied down which effectively tied off the blood supply to the hemorrhoids. This was repeated a total of 6 times around the circumference of the rectum. Next local anesthetic was injected directly into the external hemorrhoids as well as a bilateral pudendal block manner. Using a harmonic scalpel, the external hemorrhoids were then excised. Hemostasis was excellent. The wounds were then closed using 2-0 chromic in a running locking manner. A Gelfoam plug along with Silvadene and topical anesthetic were applied. Dressing was applied next. She was awakened anesthesia and taken recovery in good condition. Surgical Findings: See procedure note Complications Complications: No Admit VTE Documentation VTE Present on Admission: No VTE Mechan Device Prophylaxis: SCD's VTE Pharm Prophylaxis ordered?: No Reason prophylaxis not ordered: Treatment Not Indicated
[2025-05-27] MEDS: oxyCODONE 5 MG Tablet PO (10:51)
[2025-05-27] MEDS: Ondansetron 4 MG/2 ML Vial IV (13:19)
--- NOTE | 2025-05-30 09:51 | POSTOPAN2_ITS ---
Anesthesia Postop Eval I Sum Postop Eval Completion status Anesthesia document: Postop Eval 1 completed: Yes Anesthesia Postop Eval I Summary Anesthesia Postop Eval I Summary: Anesthesia Postop Eval I: Assessment Summary Airway patent Yes 05/27/25 09:01 EXPLOITATION ANALYST.BRODYWI Spontaneous unlabored Yes 05/27/25 09:01 EXPLOITATION ANALYST.DANNA respirations Mental status nausea No 05/27/25 09:01 EXPLOITATION ANALYST.BRODYWI Vomiting No 05/27/25 09:01 EXPLOITATION ANALYST.DANNA Anesthesia Postop Eval I: Fluid Summary Crystalloid volume administer 1,000 05/27/25 09:01 EXPLOITATION ANALYST.JSWI (ml) Colloids volume administered ( ml) Blood Product volume administered (ml) Total IV fluid infused 1,000 05/27/25 09:01 EXPLOITATION ANALYST.DANNA Anesthesia Postop Eval I: Summary Notes Anesthesia Complication No 05/27/25 09:01 EXPLOITATION ANALYST.DANNA Anesthesia Complication Comment: Post-operative progress note Anesthesia: Postop Eval II Evaluation Mental status: Awake and Calm Pain Level: 1 nausea: No Vomiting: No Complications Anesthesia Complication: No
--- NOTE | 2025-05-30 09:51 | PCM.POSTANE2 ---
Anesthesia Postop Eval I Sum Postop Eval Completion status Anesthesia document: Postop Eval 1 completed: Yes Anesthesia Postop Eval I Summary Anesthesia Postop Eval I Summary: Anesthesia Postop Eval I: Assessment Summary Airway patent Yes 05/27/25 09:01 CALL CENTER TEAM LEADER.BRODYWI Spontaneous unlabored Yes 05/27/25 09:01 CALL CENTER TEAM LEADER.DANNA respirations Mental status nausea No 05/27/25 09:01 CALL CENTER TEAM LEADER.BRODYWI Vomiting No 05/27/25 09:01 CALL CENTER TEAM LEADER.DANNA Anesthesia Postop Eval I: Fluid Summary Crystalloid volume administer 1,000 05/27/25 09:01 CALL CENTER TEAM LEADER.JSWI (ml) Colloids volume administered ( ml) Blood Product volume administered (ml) Total IV fluid infused 1,000 05/27/25 09:01 CALL CENTER TEAM LEADER.DANNA Anesthesia Postop Eval I: Summary Notes Anesthesia Complication No 05/27/25 09:01 CALL CENTER TEAM LEADER.DANNA Anesthesia Complication Comment: Post-operative progress note Anesthesia: Postop Eval II Evaluation Mental status: Awake and Calm Pain Level: 1 nausea: No Vomiting: No Complications Anesthesia Complication: No
== END 2025-05-27 14:03 | disposition home or self-care (01) ==
LOC: SDC 06:01 → AC 06:03
PROVIDERS: Student in an Organized Health Care Education/Training Program; Referring Provider Surgery; Visit Provider Surgery
PROC: (CPT 46948; principal; 2025-05-27 07:15)
DX: K64.4 Residual hemorrhoidal skin tags (principal)
CPT/HCPCS: 46948; 00902; 81025; 88304; J2405